=== PATIENT | female | born 1960 | race Two or more races ===

== ENCOUNTER 2020-11-17 17:51 | Inpatient (IN) | payer MEDICAID ==
[~2020-11-17] VITALS: Ht 157.5 cm; Wt 60.3 kg
--- NOTE | 2020-11-17 18:15 | NUR ---
RN NOTES PATIENT ARRIVED AT UNIT TO ROOM 315-1 VIA GURNEY ACCOMPANIED BY 2 API DEVELOPER; BEDSIDE ENDORSEMENT DONE.
[2020-11-17 18:30] VITALS: BP 136/88
[2020-11-17 19:30] VITALS: BP 149/59
--- NOTE | 2020-11-17 19:30 | NUR ---
MATERIALS ASSOCIATECIVIL DRAFTSMAN NOTE RECEIVED PATIENT IN BED/ A/OX4. [place] SPEAKING, ABLE TO MAKE BASIC NEEDS KNOWN. TOLERATING ROOM AIR. RESPIRATIONS ARE EVEN AND UNLABORED. NO S/S SOB NOTED. NO C/O PAIN AT THIS TIME. EXTERNAL TELE MONITOR READS SINUS RHYTHM HR 76 WITH OCCASIONAL PVC. IN NO APPARENT DISTRESS. IV ACCESS IN RFA#22 PATENT AND SALINE LOCKED. INITIAL PHYSICAL ASSESSMENT COMPLETE. SKIN ASSESSMENT COMPLETED, RLE WRAPPED WITH A SPLINT AND ANAY BANDAGE, PHOTO PLACED IN CHART. TUBE SORTER OBTAINED BELONGING LIST AND OBTAINED VITAL SIGNS. INPUT THE Walk-in Appointment Scheduler AND GAVE MEDICATION TO PHARMACY, CALLED SYSTEMS ADMINISTRATION ANALYST MD DR. BAEZ TO PLACE ADMITTING ORDERS. BED IS LOW AND LOCKED, HOB ELEVATED IN SEMI FOWLERS, SIDE RAILS UP X3, CALL LIGHT WITHIN REACH. INFORMED ON USE.WILL CONTINUE TO MONITOR THROUGHOUT SHIFT. Addendum: 11/18/20 at 0653 by ALTHEA CAST RN PATIENT A DIRECT ADMIT FROM [facility].
[2020-11-17 20:00] VITALS: BP 149/59
[2020-11-17] MEDS ORDERED: LEVO88TA5 PO (20:56)
[2020-11-17] MEDS ORDERED: GABA-532 PO (20:56)
[2020-11-17] MEDS ORDERED: ASPI-1420 PO (20:56)
[2020-11-17] MEDS ORDERED: ATOR80TA PO (20:56)
[2020-11-17] MEDS ORDERED: PYRI50TA15 PO (20:56)
[2020-11-17] MEDS ORDERED: AMLO-213 PO (20:56)
[2020-11-17] MEDS ORDERED: FOLI0.8T2 PO (20:56)
[2020-11-17] MEDS ORDERED: PRED5DRO16 EACHEYE (20:56)
[2020-11-17] MEDS ORDERED: BENA20TA9 PO (20:56)
[2020-11-17] MEDS ORDERED: OMEP20TA5 PO (20:56)
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
[2020-11-17] MEDS ORDERED: MAGNESIUM HYDROXIDE 30 ML UDC PO PRN (21:30)
[2020-11-17] MEDS ORDERED: ZOLPIDEM TARTRATE 5 MG TABLET PO PRN (21:30)
[2020-11-17] MEDS ORDERED: MAG HYDROX/AL HYDROX/SIMETH 30 ML UDC PO PRN (21:30)
[2020-11-17] MEDS ORDERED: VANCOMYCIN 1 GM in IV D5W 250ml IV ONE (23:45)
[2020-11-17] MEDS ORDERED: VANCOMYCIN 1 GM VIAL ONE (23:49)
[2020-11-18] VITALS: BP 130/58
[2020-11-18 04:00] VITALS: BP 129/69
[2020-11-18] MEDS: ONDANSETRON HCL/PF 4 MG/2 ML VIAL IVP PRN (05:34)
[2020-11-18 06:16] LABS: BASOPHILS # (AUTO) 0.2 /CMM (0.0-0.2); BASOPHILS % (AUTO) 3.3 % (0.0-2.0); EOSINOPHILS % (AUTO) 2.3 % (0.0-6.0); HEMATOCRIT 28 % (33-45); HEMOGLOBIN 9.2 g/dL (11.5-14.8); LYMPHOCYTES # (AUTO) 1.2 /CMM (0.8-4.8); LYMPHOCYTES % (AUTO) 18.4 % (20.0-44.0); MEAN CORPUSCULAR HGB CONC 33 g/dl (31.0-36.0); MEAN CORPUSCULAR VOLUME 93 fL (82-100); MONOCYTES # (AUTO) 0.8 /CMM (0.1-1.30); MONOCYTES % (AUTO) 12.2 % (2.0-12.0); NEUTROPHILS # (AUTO) 4.1 /CMM (1.8-8.9); NEUTROPHILS % (AUTO) 63.8 % (43.0-81.0); PLATELET COUNT (AUTO) 391 /CMM (150-450); RED BLOOD CELL COUNT(AUTO) 2.99 MIL/uL (4.0-5.2); WHITE BLOOD COUNT (AUTO) 6.4 K/uL (4.3-11.0)
[2020-11-18 06:38] LABS: CALCIUM, SERUM 8.6 mg/dL (8.5-10.1); CREATININE 5.3 mg/dL (0.6-1.3); MAGNESIUM 1.7 mg/dL (1.8-2.4); PHOSPHORUS 3.9 mg/dL (2.5-4.9); POTASSIUM 5.1 mmol/L (3.5-5.1)
--- NOTE | 2020-11-18 06:53 | NUR ---
SOUND RANGING CREWMEMBER CLOSING NOTE PATIENT IN BED A/OX4. TOLERATING ROOM AIR. NO RESP DISTRESS. NO C/O PAIN THROUGHOUT SHIFT. TELE MONITOR READS SINUS RHYTHM. NO DISTRESS. IV ACCESS MAINTAINED, LEFT ARM AV SHUNT. BED IS LOW AND LOCKED, HOB ELEVATED IN SEMI FOWLERS, SIDE RAILS UP X3, CALL LIGHT WITHIN REACH. WILL ENDORSE TO ONCOMING SHIFT.
--- NOTE | 2020-11-18 07:03 | NUR ---
PERSONAL LINES SALES REP OPENING NOTE RECEIVED PATIENT AWAKE IN BED. A/OX4. PT STABLE ON ROOM AIR. NO S/S SOB NOTED. NO S/S OF RESPIRATORY DISTRESS. PT ON EXTERNAL TELE EVENT PLANNING MANAGER READING SR 78. PT HAS NO C/O PAIN AT THIS TIME. IV ACCESS IN RFA #22G SALINE LOCKED. IV IS INTACT AND PATENT. LEFT AV SHUNT NOTED. SAFETY MEASURES MAINTAINED. BED IN LOWEST LOCKED POSITION. HOB ELEVATED, SIDE RAILS UP X2, CALL LIGHT AND TABLE WITHIN REACH. WILL CONTINUE WITH PLAN OF CARE.
[2020-11-18 08:00] VITALS: BP 135/61
[2020-11-18] MEDS ORDERED: DEXTROSE 50%-WATER 50 ML DISP.SYRIN IV PRN (08:00)
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
[2020-11-18] MEDS: BENAZEPRIL HCL 5 MG TABLET PO SCH (08:22)
[2020-11-18] MEDS: GABAPENTIN 100 MG CAPSULE PO SCH (08:23)
[2020-11-18] MEDS: ASPIRIN EC 81 MG TABLET.DR PO SCH (08:23)
[2020-11-18] MEDS: LEVOTHYROXINE SODIUM 88 MCG TABLET PO SCH (08:23)
[2020-11-18] MEDS: AMLODIPINE BESYLATE 10 MG TABLET PO SCH (08:23)
[2020-11-18] MEDS: VIT B CMPLX 3/FA/VIT C/BIOTIN 1 TAB TABLET PO SCH (08:23)
[2020-11-18] MEDS: PANTOPRAZOLE 40 MG TABLET.DR PO SCH (08:23)
[2020-11-18] MEDS: ATORVASTATIN 40 MG TABLET PO SCH (08:24)
[2020-11-18] MEDS: prednisoLONE ACET 1% OPHT DROP 5 ML BOTTLE EACHEYE SCH ×4 (08:26→21:36)
[2020-11-18] MEDS ORDERED: BENAZEPRIL HCL 5 MG TABLET PO SCH (09:00)
[2020-11-18] MEDS ORDERED: BENAZEPRIL HCL 20 MG TABLET PO SCH (09:00)
[2020-11-18] MEDS: PYRIDOXINE HCL 50 MG TABLET PO SCH (09:01)
--- NOTE | 2020-11-18 10:49 | NUR ---
PT'S MAGNESIUM 1.7. RECEIVED ORDERS FROM DR. MEDRANO TO ADMINISTER MAGNESIUM 1 G IVPB ONCE. ORDERS READ BACK AND CARRIED OUT. WILL CONTINUE TO MONITOR.
[2020-11-18] MEDS ORDERED: Magnesium 1GM/D5W 100ML PREMIX 100 ML IV SCH (11:00)
[2020-11-18] MEDS ORDERED: Magnesium 1GM/D5W 100ML PREMIX PIGGYBACK IV SCH (11:00)
[2020-11-18] MEDS: BLOOD SUGAR DIAGNOSTIC 1 EACH STRIP IN SCH ×3 (12:11→21:36)
[2020-11-18] MEDS: INSULIN REGULAR, HUMAN 100 UNIT/ML 3 ML VIAL SQ PRN ×3 (12:16→21:43)
[2020-11-18 16:00] VITALS: BP 121/54
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
[2020-11-18] MEDS: CEFEPIME 1 GM in IV D5W 50 ML IV SCH (16:55)
[2020-11-18] MEDS: METRONIDAZOLE 500MG/ NS 100ML 500 MG in PREMIX 1 EA IV SCH ×2 (17:57→23:57)
--- NOTE | 2020-11-18 18:44 | NUR ---
GROUP WORK PROGRAM AIDE CLOSING NOTE PT IS AWAKE IN BED AT THIS TIME. A/O X4. PT STABLE ON ROOM AIR. NO SOB NOTED. NO S/O OF RESPIRATORY DISTRESS. IV ACCESS IS INTACT, PATENT, AND FLUSHING WELL. WOUND CARE ADMINISTERED. PT REPOSITIONED Q2H AND PRN. ALL NEEDS HAVE BEEN MET. SAFETY PRECAUTIONS MAINTAINED AT ALL TIMES, BED IN LOWEST LOCKED POSITION, SIDE RAILS UP X2. CALL LIGHT AND TABLE WITHIN REACH. WILL ENDORSE TO ONCOMING NIGHT NURSE FOR CONTINUITY OF CARE.
--- NOTE | 2020-11-18 19:30 | NUR ---
COUNTY OR CITY AUDITOR OPENING NOTE PATIENT IN BED. A/OX4. TOLERATING ROOM AIR. RESPIRATIONS ARE EVEN AND UNLABORED. NO S/S SOB. NO C/O PAIN. EXTERNAL TELE MONITOR READS SINUS RHYTHM. IN NO APPARENT DISTRESS. IV ACCESS IN RFA INFILTRATED, INFORMED WILL PLACE ANOTHER. LEFT ARM AV SHUNT. BED IS LOW AND LOCKED, HOB ELEVATED IN SEMI FOWLERS, SIDE RAILS UP X3, CALL LIGHT WITHIN REACH. WILL CONTINUE TO MONITOR THROUGHOUT SHIFT. .
[2020-11-18 20:00] VITALS: BP 117/58
[2020-11-19] VITALS: BP 121/58
[2020-11-19 04:00] VITALS: BP 120/56
[2020-11-19] MEDS: METRONIDAZOLE 500MG/ NS 100ML 500 MG in PREMIX 1 EA IV SCH ×4 (05:38→23:11)
[2020-11-19 06:30] LABS: BASOPHILS # (AUTO) 0.2 /CMM (0.0-0.2); BASOPHILS % (AUTO) 2.6 % (0.0-2.0); EOSINOPHILS % (AUTO) 1.8 % (0.0-6.0); HEMATOCRIT 24 % (33-45); HEMOGLOBIN 7.7 g/dL (11.5-14.8); LYMPHOCYTES # (AUTO) 1.2 /CMM (0.8-4.8); LYMPHOCYTES % (AUTO) 15.8 % (20.0-44.0); MEAN CORPUSCULAR HGB CONC 33 g/dl (31.0-36.0); MEAN CORPUSCULAR VOLUME 94 fL (82-100); MONOCYTES # (AUTO) 0.8 /CMM (0.1-1.30); MONOCYTES % (AUTO) 10.7 % (2.0-12.0); NEUTROPHILS % (AUTO) 69.1 % (43.0-81.0); PLATELET COUNT (AUTO) 329 /CMM (150-450); RED BLOOD CELL COUNT(AUTO) 2.51 MIL/uL (4.0-5.2); WHITE BLOOD COUNT (AUTO) 7.3 K/uL (4.3-11.0)
[2020-11-19] MEDS: BLOOD SUGAR DIAGNOSTIC 1 EACH STRIP IN SCH ×4 (06:30→22:22)
[2020-11-19] MEDS: INSULIN REGULAR, HUMAN 100 UNIT/ML 3 ML VIAL SQ PRN ×4 (06:32→22:30)
--- NOTE | 2020-11-19 06:51 | NUR ---
CHEMIST STEROIDS CLOSING NOTE PATIENT IN BED A/OX4. TOLERATING ROOM AIR. NO RESP DISTRESS. NO C/O PAIN THROUGHOUT SHIFT. TELE MONITOR READS SINUS RHYTHM. NO DISTRESS. IV ACCESS MAINTAINED RIGHT WRIST #22. BED REMAINS LOW AND LOCKED, HOB ELEVATED IN SEMI FOWLERS, SIDE RAILS UP X3, CALL LIGHT WITHIN REACH. WILL ENDORSE TO ONCOMING SHIFT.
[2020-11-19 07:08] LABS: MAGNESIUM 1.9 mg/dL (1.8-2.4); PHOSPHORUS 3.6 mg/dL (2.5-4.9); POTASSIUM 4.2 mmol/L (3.5-5.1)
[2020-11-19] MEDS: PANTOPRAZOLE 40 MG TABLET.DR PO SCH (07:52)
[2020-11-19] MEDS: LEVOTHYROXINE SODIUM 88 MCG TABLET PO SCH (07:52)
[2020-11-19 08:00] VITALS: BP 119/49
--- NOTE | 2020-11-19 08:00 | NUR ---
RN OPENING NOTE RECEIVED PATIENT IN BED, AO X 4 CONGOLESE SPEAKING, ABLE TO RESPONDS ALL STIMULI. DENIES PAIN OR DISTRESS, SKIN IS WARM TO TOUCH, KEEP CLEAN/DRY INTACT IV AND AV SHUNT ON LEFT UPPER ARM. RESPIRATORY EVEN AND UNLABORED ON ROOM AIR. KEPT ELEVATED HOB FOR ENSURE AIRWAY AND ASPIRATION PRECAUTION, ALSO LOWEST BED POSITION. CALL LIGHT WITHIN REACH, WILL CONTINUE TO MONITOR.
[2020-11-19] MEDS: prednisoLONE ACET 1% OPHT DROP 5 ML BOTTLE EACHEYE SCH ×4 (08:34→22:22)
[2020-11-19] MEDS: VIT B CMPLX 3/FA/VIT C/BIOTIN 1 TAB TABLET PO SCH (08:34)
[2020-11-19] MEDS: GABAPENTIN 100 MG CAPSULE PO SCH (08:35)
[2020-11-19] MEDS: AMLODIPINE BESYLATE 10 MG TABLET PO SCH (08:35)
[2020-11-19] MEDS: ATORVASTATIN 40 MG TABLET PO SCH (08:35)
[2020-11-19] MEDS: ASPIRIN EC 81 MG TABLET.DR PO SCH (08:35)
[2020-11-19] MEDS: BENAZEPRIL HCL 5 MG TABLET PO SCH (08:35)
[2020-11-19] MEDS: PYRIDOXINE HCL 50 MG TABLET PO SCH (08:38)
--- NOTE | 2020-11-19 09:01 | NUR ---
PATIENT BP-119/49, P-75, WILL HOLD BP MEDS AT THIS TIME.
[2020-11-19] MEDS ORDERED: EPOETIN ALFA (20,000 UNIT) 20,000 UNIT/ML VIAL SQ ONE (13:00)
[2020-11-19 16:06] VITALS: BP 117/51
[2020-11-19] MEDS: CEFEPIME 1 GM in IV D5W 50 ML IV SCH (17:16)
--- NOTE | 2020-11-19 18:00 | NUR ---
RN CLOSING NOTE PATIENT IN ROOM, REMAINS AO X 4, DENIES PAIN OR DISTRESS. SKIN IS WARM TO TOUCH, WOUND DRESSING CHANGED AND KEEP CLEAN/DRY. RESPIRATORY EVEN AND UNLABORED ON ROOM AIR. KEPT ELEVATED HOB FOR ENSURE AIRWAY AND ASPIRATION PRECAUTION ALSO LOWEST BED POSITION FOR SAFETY. RECEIVED MEDICATION FOR TONIGHT DOSAGE X 3. WILL ENDORSE STEAM BOX OPERATOR.
--- NOTE | 2020-11-19 19:30 | NUR ---
MS RN OPENING NOTE PATIENT IN BED. A/OX4. TOLERATING ROOM AIR. RESPIRATIONS ARE EVEN AND UNLABORED. NO S/S SOB. NO C/O PAIN. IN NO APPARENT DISTRESS. IV ACCESS IN RIGHT WRIST #22 PATENT AND SALINE LOCKED. LEFT ARM AV SHUNT. BED IS LOW AND LOCKED, HOB ELEVATED IN SEMI FOWLERS, SIDE RAILS UP X3, CALL LIGHT WITHIN REACH. WILL CONTINUE TO MONITOR THROUGHOUT SHIFT.
[2020-11-19 20:00] VITALS: BP 134/58
[2020-11-19] MEDS: HYDROCODONE/APAP 5/325MG TABLET PO PRN (22:24)
[2020-11-20] MEDS: METRONIDAZOLE 500MG/ NS 100ML 500 MG in PREMIX 1 EA IV SCH (05:39)
[2020-11-20 06:02] LABS: BASOPHILS # (AUTO) 0.1 /CMM (0.0-0.2); BASOPHILS % (AUTO) 2.2 % (0.0-2.0); HEMATOCRIT 25 % (33-45); HEMOGLOBIN 8.1 g/dL (11.5-14.8); LYMPHOCYTES # (AUTO) 1.2 /CMM (0.8-4.8); LYMPHOCYTES % (AUTO) 19.5 % (20.0-44.0); MEAN CORPUSCULAR HGB CONC 33 g/dl (31.0-36.0); MEAN CORPUSCULAR VOLUME 95 fL (82-100); MONOCYTES # (AUTO) 0.7 /CMM (0.1-1.30); MONOCYTES % (AUTO) 10.7 % (2.0-12.0); NEUTROPHILS % (AUTO) 64.6 % (43.0-81.0); PLATELET COUNT (AUTO) 336 /CMM (150-450); RED BLOOD CELL COUNT(AUTO) 2.63 MIL/uL (4.0-5.2); WHITE BLOOD COUNT (AUTO) 6.2 K/uL (4.3-11.0)
[2020-11-20] MEDS: BLOOD SUGAR DIAGNOSTIC 1 EACH STRIP IN SCH ×4 (06:35→22:02)
[2020-11-20] MEDS: INSULIN REGULAR, HUMAN 100 UNIT/ML 3 ML VIAL SQ PRN ×4 (06:36→22:02)
--- NOTE | 2020-11-20 07:06 | NUR ---
MS RN OPENING NOTE RECEIVED PT AWAKE IN BED AT THIS TIME. A/OX4. PT ABLE TO VERBALIZE NEEDS IN PERSIAN. NO SOB NOTED. NO C/O PAIN AT THIS TIME, NO SIGN OF ANY APPARENT DISTRESS NOTED. PT STABLE ON RA. IV ACCESS NOTED IN RFA G#22 INTACT, PATENT AND FLUSHING WELL. PT NOTED WITH RIGHT LEG SPLINT, SKIN AROUND SPLINT INTACT. SAFETY PRECAUTIONS IN PLACE AND MAINTAINED AT ALL TIMES. BED IN LOWEST LOCKED POSITION, HOB ELEVATED, SIDE RAILS UP X2, CALL LIGHT AND TABLE WITHIN REACH. WILL CONTINUE TO MONITOR
--- NOTE | 2020-11-20 07:17 | NUR ---
MS RN CLOSING NOTE PATIENT IN BED A/OX4. TOLERATING ROOM AIR. NO RESP DISTRESS. NO C/O PAIN THROUGHOUT SHIFT. . NO DISTRESS. IV ACCESS MAINTAINED RIGHT WRIST #22. BED REMAINS LOW AND LOCKED, HOB ELEVATED IN SEMI FOWLERS, SIDE RAILS UP X3, CALL LIGHT WITHIN REACH. WILL ENDORSE TO ONCOMING SHIFT.
[2020-11-20 07:29] LABS: ALBUMIN 1.6 g/dL (3.4-5.0); BILIRUBIN,TOTAL 0.4 mg/dL (0.2-1.0); CALCIUM, SERUM 8.3 mg/dL (8.5-10.1); CREATININE 5.1 mg/dL (0.6-1.3); MAGNESIUM 2.1 mg/dL (1.8-2.4); PHOSPHORUS 4.7 mg/dL (2.5-4.9); POTASSIUM 4.5 mmol/L (3.5-5.1)
[2020-11-20 08:00] VITALS: BP 118/51
[2020-11-20] MEDS: LEVOTHYROXINE SODIUM 88 MCG TABLET PO SCH (08:24)
[2020-11-20] MEDS: PANTOPRAZOLE 40 MG TABLET.DR PO SCH (08:24)
[2020-11-20] MEDS: prednisoLONE ACET 1% OPHT DROP 5 ML BOTTLE EACHEYE SCH ×4 (08:46→20:54)
[2020-11-20] MEDS: VIT B CMPLX 3/FA/VIT C/BIOTIN 1 TAB TABLET PO SCH (08:47)
[2020-11-20] MEDS: ATORVASTATIN 40 MG TABLET PO SCH (08:47)
[2020-11-20] MEDS: ASPIRIN EC 81 MG TABLET.DR PO SCH (08:47)
[2020-11-20] MEDS: GABAPENTIN 100 MG CAPSULE PO SCH (08:47)
[2020-11-20] MEDS: PYRIDOXINE HCL 50 MG TABLET PO SCH (08:48)
[2020-11-20] MEDS: BENAZEPRIL HCL 5 MG TABLET PO SCH (08:49)
[2020-11-20] MEDS: AMLODIPINE BESYLATE 10 MG TABLET PO SCH (08:49)
[2020-11-20] MEDS: Z GUARD REMEDY 2 OZ OINT TP PRN ×2 (08:51→17:01)
[2020-11-20] MEDS: METRONIDAZOLE 500 MG TABLET PO SCH ×3 (11:50→23:15)
[2020-11-20] MEDS: PROSOURCE / PROSTAT (PYXIS) 30 ML UDC PO SCH (13:35)
[2020-11-20 15:48] VITALS: BP 129/53
[2020-11-20] MEDS: CEFEPIME 1 GM in IV D5W 50 ML IV SCH (17:30)
--- NOTE | 2020-11-20 18:56 | NUR ---
MS RN CLOSING NOTES PT AWAKE IN BED AT THIS TIME. PT REMAINED STABLE THROUGHOUT SHIFT.ALL CARE, NEEDS, MEDICATIONS AND TREATMENT ADMINISTERED ANTICIPATED PER ORDER.PT KEPT CLEAN AND DRY. WOUND CARE PROVIDED. PT REPOSITIONED Q2H AND PRN. SAFETY PRECAUTIONS IN PLACE AND MAINTAINED AT ALL TIMES. BED IN LOWEST LOCKED POSITION, HOB ELEVATED, SIDE RAILS UPX2, CALL LIGHT AND TABLE WITHIN REACH. WILL ENDORSE TO METAL FABRICATOR WELDER NURSE FOR ENEDINA
--- NOTE | 2020-11-20 19:20 | NUR ---
RN opening notes Pt is resting in bed comfortably. Pt is alert and orientedX4. Pt speaks Uruguayan and able to make needs known. Respiration is normal in room air. No SOB, No S/S of distress noted. IV site at R wrist# 22 is clean, intact and flushes well. LAV shunt is thrill and bruit. Safety precautions is maintained. Bed at low position, brakes locked, side rails upX2, hob elevated and call light is within reach. Will continue to monitor.
[2020-11-20 20:00] VITALS: BP 126/51
--- NOTE | 2020-11-20 20:00 | NUR ---
RN notes Obtained consent for Hemodialysis. Pt signed the consent and verbalize understanding. Will continue to monitor.
--- NOTE | 2020-11-20 20:00 | NUR ---
RN notes Received order from Dr. Alvarez to obtain consent for peripheral angiogram and possible intervention (with moderate sedation). Order carried out.
[2020-11-20 20:02] VITALS: BP 126/51
--- NOTE | 2020-11-20 20:30 | NUR ---
RN notes Pt's having dialysis at the bedside with LORETTA Padron. Will continue to monitor.
--- NOTE | 2020-11-20 21:15 | NUR ---
RN notes Obtained consent from Pt for peripheral angiogram and possible intervention. Explained risks and benefits. Pt verbalize understanding.
--- NOTE | 2020-11-20 22:30 | NUR ---
RN notes Pt is finished with HD with 1 L ouput. BP 136/62. pulse 72. Pt tolerated activity well. Will continue to monitor.
[2020-11-20] MEDS: VANCOMYCIN 500 MG in IV D5W 100 ML IV PRN (23:20)
--- NOTE | 2020-11-20 23:21 | NUR ---
RN notes Called and spoke with oncall pharmacy Amira regarding Held vanco abx after HD. Informed and notified Amira that Pt just finished HD with 1 L output and vanco trough today was 21 and not administered vanco abx. Will continue to monitor.
[2020-11-20] MEDS: HYDROCODONE/APAP 5/325MG TABLET PO PRN (23:35)
--- NOTE | 2020-11-20 23:35 | NUR ---
RN notes Pt's complaining of pain on R leg and requesting meds. Administered norco 5/po/prn as ordered for pain. Safety precautions is maintained. Will continue to monitor.
[2020-11-21] MEDS: ONDANSETRON HCL/PF 4 MG/2 ML VIAL IVP PRN (03:59)
[2020-11-21] MEDS: METRONIDAZOLE 500 MG TABLET PO SCH ×4 (05:18→23:52)
[2020-11-21] MEDS: BLOOD SUGAR DIAGNOSTIC 1 EACH STRIP IN SCH ×4 (06:39→21:44)
--- NOTE | 2020-11-21 06:40 | NUR ---
RN closing notes Pt is resting in bed comfortably. Pt is alert and orientedX4. Pt speaks New Zealander and able to make needs known. Respiration is normal in room air. No SOB, No S/S of distress noted. VS is stable. Afebrile. Routine meds were given as ordered. IV site at R wrist# 22 is clean, intact and flushes well and SL. LAV shunt is thrill and bruit. Pt status is NPO for procedure today. Wound care provided as ordered. Kept Pt clean, dry and comfortable. All needs met and attended. Safety precautions is maintained. Bed at low position, brakes locked, side rails upX2, hob elevated and call light is within reach. Will endorse to morning nurse for ENEDINA.
[2020-11-21] MEDS: INSULIN REGULAR, HUMAN 100 UNIT/ML 3 ML VIAL SQ PRN ×4 (06:41→21:56)
--- NOTE | 2020-11-21 06:41 | NUR ---
RN notes Pt's blood sugar in am 157. Held insulin because NPO diagnose and Pt is going for procedure today peripheral angiogram and possible intervention with moderate sedation. no S/S of distress noted. Will continue to monitor.
--- NOTE | 2020-11-21 07:54 | NUR ---
MS RN OPENING NOTE RECEIVED PT AWAKE IN BED AT THIS TIME. A/OX4. AFGHAN SPEAKING. NO SOB NOTED. NO C/O PAIN AT THIS TIME, NO S/O ANY ACUTE DISTRESS NOTED. PT STABLE ON RA. IV ACCESS NOTED IN RFA G#22 INTACT, PATENT AND FLUSHING WELL. LEFT AV SHUNT NOTED, AUSCULTATED A BRUIT AND FELT A THRILL. PT NOTED WITH RIGHT LEG SPLINT, SKIN AROUND PROTECTED AND SPLINT INTACT. SAFETY PRECAUTIONS IN PLACE AND MAINTAINED AT ALL TIMES. BED IN LOWEST LOCKED POSITION, HOB ELEVATED, SIDE RAILS UP X2, CALL LIGHT AND TABLE WITHIN REACH. WILL CONTINUE TO MONITOR
[2020-11-21 08:00] VITALS: BP 145/60
[2020-11-21] MEDS ORDERED: IV NS 0.9% 1,000 ML ONE (08:34)
[2020-11-21] MEDS ORDERED: IODIXANOL 0 ML IV ONE (08:35)
[2020-11-21 08:46] LABS: CALCIUM, SERUM 8.3 mg/dL (8.5-10.1); CREATININE 3.7 mg/dL (0.6-1.3)
[2020-11-21] MEDS: ASPIRIN EC 81 MG TABLET.DR PO SCH (08:53)
[2020-11-21] MEDS: ATORVASTATIN 40 MG TABLET PO SCH (08:53)
[2020-11-21] MEDS: prednisoLONE ACET 1% OPHT DROP 5 ML BOTTLE EACHEYE SCH ×4 (08:53→21:16)
[2020-11-21] MEDS: PYRIDOXINE HCL 50 MG TABLET PO SCH (08:53)
[2020-11-21] MEDS: VIT B CMPLX 3/FA/VIT C/BIOTIN 1 TAB TABLET PO SCH (08:53)
[2020-11-21] MEDS: LEVOTHYROXINE SODIUM 88 MCG TABLET PO SCH (08:53)
[2020-11-21] MEDS: PANTOPRAZOLE 40 MG TABLET.DR PO SCH (08:53)
[2020-11-21] MEDS: GABAPENTIN 100 MG CAPSULE PO SCH (08:53)
[2020-11-21] MEDS: AMLODIPINE BESYLATE 10 MG TABLET PO SCH (08:54)
[2020-11-21] MEDS: BENAZEPRIL HCL 5 MG TABLET PO SCH (08:55)
[2020-11-21] MEDS: Z GUARD REMEDY 2 OZ OINT TP PRN (08:56)
[2020-11-21] MEDS: PROSOURCE / PROSTAT (PYXIS) 30 ML UDC PO SCH (09:38)
[2020-11-21] MEDS: HYDROCODONE/APAP 5/325MG TABLET PO PRN (10:36)
[2020-11-21] MEDS ORDERED: LIDOCAINE HCL/MPF 1% 30 ML VIAL IJ ONE (11:55)
[2020-11-21] MEDS ORDERED: MIDAZOLAM HCL 2 MG/2ML VIAL ONE (12:13)
[2020-11-21] MEDS ORDERED: FENTANYL PF 100MCG/2ML AMPUL ONE (12:13)
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
--- NOTE | 2020-11-21 13:07 | NUR ---
PT TRANSPORTED TO UNIT BY BED FROM [facility] AT THIS TIME POST ABD ANGIO WITH RUN-OFF. PT NOTED WITH LEFT GROIN DRY DRESSING. NO BLEEDING NOTED, VS BP 128/62, HR 78, RR 18, T 98.0, SPO2 96% ON RA. PREVIOUS DIET ORDER RESUMED TO RENAL HIGH(80GM) PER ORDER. WILL CONTINUE TO MONITOR
[2020-11-21 16:00] VITALS: BP 100/50
[2020-11-21] MEDS: CEFEPIME 1 GM in IV D5W 50 ML IV SCH (17:44)
--- NOTE | 2020-11-21 18:24 | NUR ---
MS RN CLOSING NOTES PT AWAKE IN BED AT THIS TIME. PT REMAINED STABLE THROUGHOUT SHIFT. ALL PT CARE, NEEDS, MEDICATIONS AND TREATMENT ADMINISTERED ANTICIPATED PER ORDER.PT KEPT CLEAN AND DRY. WOUND CARE PROVIDED. PT REPOSITIONED Q2H AND PRN. SAFETY PRECAUTIONS IN PLACE AND MAINTAINED AT ALL TIMES. BED IN LOWEST LOCKED POSITION, HOB ELEVATED, SIDE RAILS UPX2, CALL LIGHT AND TABLE WITHIN REACH. WILL ENDORSE TO BANK COURIER NURSE FOR ENEDIAN
--- NOTE | 2020-11-21 19:30 | NUR ---
MS RN OPENING NOTE RECEIVED PT RESTING IN BED, A/OX4. MICRONESIAN SPEAKING. NO S/S OF RESPIRATORY DISTRESS, BREATHING EVEN AND UNLABORED. NO C/O PAIN AT THIS TIME, NO S/O ANY ACUTE DISTRESS NOTED. PT STABLE ON RA. IV ACCESS NOTED IN RFA G#22 INTACT, PATENT AND FLUSHING WELL. LEFT AV SHUNT NOTED, AUSCULTATED A BRUIT AND FELT A THRILL. PT NOTED WITH RIGHT LEG SPLINT, SKIN AROUND PROTECTED AND SPLINT INTACT. SAFETY PRECAUTIONS IN PLACE : BED IN LOWEST LOCKED POSITION, HOB ELEVATED, SIDE RAILS UP X2, CALL LIGHT AND TABLE WITHIN REACH. ENCOURAGED PATIENT TO CALL IF IN NEED. WILL CONTINUE TO MONITOR.
[2020-11-21 20:00] VITALS: BP 134/58
[2020-11-22] MEDS: METRONIDAZOLE 500 MG TABLET PO SCH ×4 (05:13→23:01)
[2020-11-22 07:09] LABS: BASOPHILS # (AUTO) 0.2 /CMM (0.0-0.2); BASOPHILS % (AUTO) 2.3 % (0.0-2.0); EOSINOPHILS % (AUTO) 5.7 % (0.0-6.0); HEMATOCRIT 24 % (33-45); HEMOGLOBIN 7.8 g/dL (11.5-14.8); LYMPHOCYTES # (AUTO) 1.4 /CMM (0.8-4.8); LYMPHOCYTES % (AUTO) 19.1 % (20.0-44.0); MEAN CORPUSCULAR HGB CONC 33 g/dl (31.0-36.0); MEAN CORPUSCULAR VOLUME 95 fL (82-100); MONOCYTES # (AUTO) 0.9 /CMM (0.1-1.30); NEUTROPHILS # (AUTO) 4.4 /CMM (1.8-8.9); NEUTROPHILS % (AUTO) 60.9 % (43.0-81.0); PLATELET COUNT (AUTO) 398 /CMM (150-450); RED BLOOD CELL COUNT(AUTO) 2.52 MIL/uL (4.0-5.2); WHITE BLOOD COUNT (AUTO) 7.1 K/uL (4.3-11.0)
--- NOTE | 2020-11-22 07:15 | NUR ---
MS RN CLOSING NOTE PT RESTING IN BED, A/OX4. ROMANIAN SPEAKING. NO S/S OF RESPIRATORY DISTRESS, BREATHING EVEN AND UNLABORED. NO C/O PAIN AT THIS TIME, NO S/O ANY ACUTE DISTRESS NOTED. PT STABLE ON RA. IV ACCESS NOTED IN RFA G#22 INTACT, PATENT AND FLUSHING WELL. LEFT AV SHUNT NOTED, AUSCULTATED A BRUIT AND FELT A THRILL. PT NOTED WITH RIGHT LEG SPLINT, SKIN AROUND PROTECTED AND SPLINT INTACT. SAFETY PRECAUTIONS MAINTAINED : BED IN LOWEST LOCKED POSITION, HOB ELEVATED, SIDE RAILS UP X2, CALL LIGHT AND TABLE WITHIN REACH. ALL NEEDS MET AND ATTENDED. ENDORSED TO DAY SHIFT NURSE FOR ENEDINA.
--- NOTE | 2020-11-22 07:44 | NUR ---
MS RN OPENING NOTES RECEIVED PT RESTING IN BED, A/OX4. LUXEMBOURGISH SPEAKING. NO S/S OF RESPIRATORY DISTRESS, BREATHING EVEN AND UNLABORED. NO C/O PAIN AT THIS TIME, NO S/O ANY ACUTE DISTRESS NOTED. PT STABLE ON RA. IV ACCESS NOTED IN RFA G#22 INTACT, PATENT AND FLUSHING WELL. LEFT AV SHUNT NOTED, A PT NOTED WITH RIGHT LEG SPLINT, SKIN AROUND PROTECTED AND SPLINT INTACT. SAFETY PRECAUTIONS IN PLACE : BED IN LOWEST LOCKED POSITION, HOB ELEVATED, SIDE RAILS UP X2, CALL LIGHT AND TABLE WITHIN REACH.
[2020-11-22 07:47] LABS: CALCIUM, SERUM 7.9 mg/dL (8.5-10.1); CREATININE 4.9 mg/dL (0.6-1.3); POTASSIUM 4.3 mmol/L (3.5-5.1)
[2020-11-22 08:00] VITALS: BP 146/66
[2020-11-22] MEDS: BLOOD SUGAR DIAGNOSTIC 1 EACH STRIP IN SCH ×4 (09:25→23:52)
[2020-11-22] MEDS: VANCOMYCIN 500 MG in IV D5W 100 ML IV PRN (09:26)
[2020-11-22] MEDS: VIT B CMPLX 3/FA/VIT C/BIOTIN 1 TAB TABLET PO SCH (09:48)
[2020-11-22] MEDS: BENAZEPRIL HCL 5 MG TABLET PO SCH (09:48)
[2020-11-22] MEDS: ASPIRIN EC 81 MG TABLET.DR PO SCH (09:48)
[2020-11-22] MEDS: prednisoLONE ACET 1% OPHT DROP 5 ML BOTTLE EACHEYE SCH ×4 (09:49→21:19)
[2020-11-22] MEDS: ATORVASTATIN 40 MG TABLET PO SCH (09:49)
[2020-11-22] MEDS: AMLODIPINE BESYLATE 10 MG TABLET PO SCH (09:49)
[2020-11-22] MEDS: PYRIDOXINE HCL 50 MG TABLET PO SCH (09:50)
[2020-11-22] MEDS: PROSOURCE / PROSTAT (PYXIS) 30 ML UDC PO SCH (09:51)
[2020-11-22] MEDS: PANTOPRAZOLE 40 MG TABLET.DR PO SCH (09:51)
[2020-11-22] MEDS: LEVOTHYROXINE SODIUM 88 MCG TABLET PO SCH (09:51)
[2020-11-22] MEDS: GABAPENTIN 100 MG CAPSULE PO SCH (09:51)
[2020-11-22] MEDS: INSULIN REGULAR, HUMAN 100 UNIT/ML 3 ML VIAL SQ PRN (11:57)
[2020-11-22] MEDS ORDERED: CEFTRIAXONE 1 G in IV D5W 50 ML IV SCH (14:00)
[2020-11-22 16:00] VITALS: BP 114/58
[2020-11-22] MEDS ORDERED: CEFEPIME 1 GM in IV D5W 50 ML IV SCH (16:00)
--- NOTE | 2020-11-22 17:55 | NUR ---
MS RN cLOSING NOTES RECEIVED PT RESTING IN BED, A/OX4. WOLOF SPEAKING. NO S/S OF RESPIRATORY DISTRESS, BREATHING EVEN AND UNLABORED. NO C/O PAIN AT THIS TIME, NO S/O ANY ACUTE DISTRESS NOTED. PT STABLE ON RA. IV ACCESS NOTED IN RFA G#22 INTACT, PATENT AND FLUSHING WELL. LEFT AV SHUNT NOTED, A PT NOTED WITH RIGHT LEG SPLINT, SKIN AROUND PROTECTED AND SPLINT INTACT. SAFETY PRECAUTIONS IN PLACE : BED IN LOWEST LOCKED POSITION, HOB ELEVATED, SIDE RAILS UP X2, CALL LIGHT AND TABLE WITHIN REACH.
--- NOTE | 2020-11-22 19:30 | NUR ---
MS/RN NOTES RECEIVED PATIENT IN BED RESTING. PATIENT IS ALERT AND ORIENTED X 3-4. PATIENT BREATHING IS EVEN AND UNLABORED. NO SIGNS OF SOB OR RESPIRATORY DISTRESS NOTED. PATIENT STATES NO PAIN AT THIS TIME. IV ACCESS IN PLACE. SAFETY MEASURES ARE IN PLACE, BED LOCKED AND PLACED IN THE LOWEST POSITION, SIDE RAILS UP X 2, CALL LIGHT IS WITHIN REACH. WILL CONTINUE WITH PATIENT PLAN OF CARE.
[2020-11-22 20:00] VITALS: BP 119/53
[2020-11-23] MEDS: METRONIDAZOLE 500 MG TABLET PO SCH (05:58)
[2020-11-23 06:36] LABS: BASOPHILS # (AUTO) 0.2 /CMM (0.0-0.2); BASOPHILS % (AUTO) 2.5 % (0.0-2.0); EOSINOPHILS % (AUTO) 6.3 % (0.0-6.0); HEMATOCRIT 23 % (33-45); HEMOGLOBIN 7.5 g/dL (11.5-14.8); LYMPHOCYTES # (AUTO) 1.3 /CMM (0.8-4.8); LYMPHOCYTES % (AUTO) 18.8 % (20.0-44.0); MEAN CORPUSCULAR HGB CONC 33 g/dl (31.0-36.0); MEAN CORPUSCULAR VOLUME 94 fL (82-100); MONOCYTES # (AUTO) 0.8 /CMM (0.1-1.30); MONOCYTES % (AUTO) 11.5 % (2.0-12.0); NEUTROPHILS # (AUTO) 4.1 /CMM (1.8-8.9); NEUTROPHILS % (AUTO) 60.9 % (43.0-81.0); PLATELET COUNT (AUTO) 371 /CMM (150-450); WHITE BLOOD COUNT (AUTO) 6.8 K/uL (4.3-11.0)
[2020-11-23] MEDS: BLOOD SUGAR DIAGNOSTIC 1 EACH STRIP IN SCH ×4 (06:50→22:12)
--- NOTE | 2020-11-23 06:55 | NUR ---
MS/RN CLOSING NOTES PATIENT IN BED SLEEPING EASY TO AROUSE. PATIENT IS ALERT AND ORIENTED X 4. PATIENT BREATHING IS EVEN AND UNLABORED. PATIENT SHOWS NO SIGNS OF SOB OR RESPIRATORY DISTRESS. PATIENT STATES NO PAIN AT THIS TIME. ALL NEEDS HAVE BEEN MET DURING SHIFT. PATIENT WOUND TREATMENT DONE DURING SHIFT, DSG CLEANED AND INTACT. PATIENT HAS IV ACCESS ON RIGHT WIRST INTACT FLUSHING WELL AND LEFT AV SHUNT INTACT. SAFETY MEASURES ARE IN PLACE, BED IS LOCKED AND PLACED IN THE LOWEST POSITION, SIDE RAILS UP X 3, CALL LIGHT IS WITHIN REACH. WILL ENDORSE CARE TO DAY SHIFT NURSE.
[2020-11-23 07:25] LABS: CALCIUM, SERUM 7.5 mg/dL (8.5-10.1); MAGNESIUM 1.9 mg/dL (1.8-2.4); POTASSIUM 3.7 mmol/L (3.5-5.1)
--- NOTE | 2020-11-23 07:42 | NUR ---
MS/RN OPENING NOTE RECEIVED PATIENT FROM TRAINING AND DEVELOPMENT MANAGER NURSE. PATIENT SEEN LAYING DOWN IN HOSPITAL BED, A/O X4, WOLOF SPEAKING. NO ACUTE DISTRESS NOTED, PATIENT DENIES ANY PAIN AT THE MOMENT. PATIENT ON ROOM AIR TOLERATING WELL, NO SOB NOTED, BREATHING EVEN, NON LABORED. SAFETY MEASURES IN PLACE, BED LOCKED AND IN LOWEST POSITION, CALL LIGHT WITHIN REACH. WILL CONTINUE TO MONITOR AND ENSURE SAFETY.
[2020-11-23] MEDS: LEVOTHYROXINE SODIUM 88 MCG TABLET PO SCH (07:58)
[2020-11-23] MEDS: PANTOPRAZOLE 40 MG TABLET.DR PO SCH (07:58)
[2020-11-23] MEDS: PYRIDOXINE HCL 50 MG TABLET PO SCH (08:40)
[2020-11-23] MEDS: AMLODIPINE BESYLATE 10 MG TABLET PO SCH (08:40)
[2020-11-23] MEDS: ATORVASTATIN 40 MG TABLET PO SCH (08:40)
[2020-11-23] MEDS: GABAPENTIN 100 MG CAPSULE PO SCH (08:40)
[2020-11-23] MEDS: VIT B CMPLX 3/FA/VIT C/BIOTIN 1 TAB TABLET PO SCH (08:40)
[2020-11-23] MEDS: ASPIRIN EC 81 MG TABLET.DR PO SCH (08:40)
[2020-11-23] MEDS: PROSOURCE / PROSTAT (PYXIS) 30 ML UDC PO SCH (08:41)
[2020-11-23] MEDS: BENAZEPRIL HCL 5 MG TABLET PO SCH (08:43)
[2020-11-23] MEDS: prednisoLONE ACET 1% OPHT DROP 5 ML BOTTLE EACHEYE SCH ×4 (08:43→22:12)
--- NOTE | 2020-11-23 11:10 | NUR ---
MS/RN NOTE MD ORDERED PICC LINE INSERTION, ORDERS CARRIED OUT, CHEST XRAY WAS COMPLETED. PATIENT TO BE DISCHARGED WITH 6 WEEK ABX PER MD.
[2020-11-23] MEDS ORDERED: MECLIZINE HCL 12.5 MG TABLET PO PRN (11:30)
[2020-11-23] MEDS: INSULIN REGULAR, HUMAN 100 UNIT/ML 3 ML VIAL SQ PRN ×3 (11:51→22:15)
--- NOTE | 2020-11-23 15:59 | NUR ---
MS/RN NOTE PATIENT HAD COVID RAPID TEST COMPLETED, AWAITING FOR RESULTS
--- NOTE | 2020-11-23 18:56 | NUR ---
MS/RN CLOSING NOTE PATIENT SEEN LAYING DOWN IN HOSPITAL BED, A/O X4, FRISIAN SPEAKING. NO ACUTE DISTRESS NOTED, PATIENT DENIES ANY PAIN AT THE MOMENT. PATIENT ON ROOM AIR TOLERATING WELL, NO SOB NOTED, BREATHING EVEN, NON LABORED. SAFETY MEASURES IN PLACE, BED LOCKED AND IN LOWEST POSITION, CALL LIGHT WITHIN REACH. ALL NEEDS MET THROUGHOUT THE SHIFT. WILL ENDORSE TO SEPTIC TANK INSTALLER NURSE.
[2020-11-23 20:00] VITALS: BP 141/60
--- NOTE | 2020-11-23 20:31 | NUR ---
MS/TELE/RN' ON INITIAL SHIFT ROUNDING, PATIENT WAS IN BED AWAKE, ALERT, TALKING TO SOMEBODY ON THE PHONE, COMFORTABLE, NO DISTRESS NOTED, CALL LIGHT IN REACH, WILL MONITOR.
[2020-11-24 06:45] LABS: BASOPHILS # (AUTO) 0.1 /CMM (0.0-0.2); BASOPHILS % (AUTO) 2.1 % (0.0-2.0); EOSINOPHILS % (AUTO) 8.7 % (0.0-6.0); HEMATOCRIT 23 % (33-45); HEMOGLOBIN 7.6 g/dL (11.5-14.8); LYMPHOCYTES # (AUTO) 1.3 /CMM (0.8-4.8); LYMPHOCYTES % (AUTO) 18.5 % (20.0-44.0); MEAN CORPUSCULAR HGB CONC 33 g/dl (31.0-36.0); MEAN CORPUSCULAR VOLUME 95 fL (82-100); MONOCYTES # (AUTO) 0.7 /CMM (0.1-1.30); MONOCYTES % (AUTO) 10.2 % (2.0-12.0); NEUTROPHILS # (AUTO) 4.4 /CMM (1.8-8.9); NEUTROPHILS % (AUTO) 60.5 % (43.0-81.0); PLATELET COUNT (AUTO) 405 /CMM (150-450); RED BLOOD CELL COUNT(AUTO) 2.39 MIL/uL (4.0-5.2); WHITE BLOOD COUNT (AUTO) 7.3 K/uL (4.3-11.0)
--- NOTE | 2020-11-24 06:51 | NUR ---
MS/TELE/RN PATIENT IS AWAKE, ALERT, ORIENTED, ACCU CHECK = 94, PATIENT SLEPT THE WHOLE SHIFT, ALL NEEDS ATTENDED AT THIS TIME, WILL CONTINUE TO MONITOR.
--- NOTE | 2020-11-24 07:34 | NUR ---
MS/RN OPENING NOTE RECEIVED PATIENT FROM SUPERVISOR SANDBLASTER NURSE. PATIENT SEEN LAYING DOWN IN HOSPITAL BED, A/O X4, CHINESE SPEAKING. NO ACUTE DISTRESS NOTED, PATIENT DENIES ANY PAIN AT THE MOMENT. PATIENT ON ROOM AIR TOLERATING WELL, NO SOB NOTED, BREATHING EVEN, NON LABORED. SAFETY MEASURES IN PLACE, BED LOCKED AND IN LOWEST POSITION, CALL LIGHT WITHIN REACH. WILL CONTINUE TO MONITOR AND ENSURE SAFETY.
[2020-11-24 07:35] LABS: CALCIUM, SERUM 7.4 mg/dL (8.5-10.1); CREATININE 5.1 mg/dL (0.6-1.3); MAGNESIUM 1.9 mg/dL (1.8-2.4); POTASSIUM 3.8 mmol/L (3.5-5.1)
[2020-11-24] MEDS: LEVOTHYROXINE SODIUM 88 MCG TABLET PO SCH (07:41)
[2020-11-24] MEDS: PANTOPRAZOLE 40 MG TABLET.DR PO SCH (07:41)
[2020-11-24] MEDS: BLOOD SUGAR DIAGNOSTIC 1 EACH STRIP IN SCH ×4 (07:55→21:55)
[2020-11-24 08:00] VITALS: BP 136/51
[2020-11-24] MEDS: prednisoLONE ACET 1% OPHT DROP 5 ML BOTTLE EACHEYE SCH ×4 (08:21→21:15)
[2020-11-24] MEDS: AMLODIPINE BESYLATE 10 MG TABLET PO SCH (08:21)
[2020-11-24] MEDS: ATORVASTATIN 40 MG TABLET PO SCH (08:21)
[2020-11-24] MEDS: VIT B CMPLX 3/FA/VIT C/BIOTIN 1 TAB TABLET PO SCH (08:22)
[2020-11-24] MEDS: PYRIDOXINE HCL 50 MG TABLET PO SCH (08:22)
[2020-11-24] MEDS: ASPIRIN EC 81 MG TABLET.DR PO SCH (08:22)
[2020-11-24] MEDS: PROSOURCE / PROSTAT (PYXIS) 30 ML UDC PO SCH (08:22)
[2020-11-24] MEDS: GABAPENTIN 100 MG CAPSULE PO SCH (08:22)
[2020-11-24] MEDS: BENAZEPRIL HCL 5 MG TABLET PO SCH (08:25)
[2020-11-24] MEDS: PIPERACILLIN /TAZOBACTAM 2.25 G in IV D5W 50 ML IV SCH ×2 (09:15→16:17)
[2020-11-24] MEDS: INSULIN REGULAR, HUMAN 100 UNIT/ML 3 ML VIAL SQ PRN ×3 (12:04→22:00)
[2020-11-24] MEDS: ACETAMINOPHEN 325 MG TABLET PO PRN (14:33)
[2020-11-24 16:00] VITALS: BP 133/68
--- NOTE | 2020-11-24 16:52 | NUR ---
MS/RN NOTE PATIENT STARTED DIALYSIS.
--- NOTE | 2020-11-24 19:24 | NUR ---
MS/RN CLOSING NOTE PATIENT SEEN LAYING DOWN IN HOSPITAL BED, A/O X4, DANISH SPEAKING. NO ACUTE DISTRESS NOTED, PATIENT DENIES ANY PAIN AT THE MOMENT. PATIENT ON ROOM AIR TOLERATING WELL, NO SOB NOTED, BREATHING EVEN, NON LABORED. SAFETY MEASURES IN PLACE, BED LOCKED AND IN LOWEST POSITION, CALL LIGHT WITHIN REACH. ALL NEEDS MET THROUGHOUT THE SHIFT. WILL ENDORSE TO INSTRUCTOR DANCING NURSE.
--- NOTE | 2020-11-24 19:29 | NUR ---
MS MARII INITIAL NOTES Received pt in bed awake and alert watching TV at this time, denies any discomfort, not in any distress noted. dressing on her lower leg dry and intact. kept her warm and comfortable at all times. place call light at reach. will continue monitoring.
[2020-11-24 20:00] VITALS: BP 132/54
[2020-11-25] MEDS: PIPERACILLIN /TAZOBACTAM 2.25 G in IV D5W 50 ML IV SCH ×3 (00:57→17:23)
--- NOTE | 2020-11-25 01:54 | NUR ---
MS MARII NOTES pt sleeping comfortably in bed without any distress noted. respiration even and unlabored. kept her warm and comfortable at all times. will continue monitoring.
[2020-11-25] MEDS: BLOOD SUGAR DIAGNOSTIC 1 EACH STRIP IN SCH ×4 (06:04→22:22)
[2020-11-25] MEDS: INSULIN REGULAR, HUMAN 100 UNIT/ML 3 ML VIAL SQ PRN ×4 (06:10→22:30)
[2020-11-25 06:30] LABS: BASOPHILS # (AUTO) 0.1 /CMM (0.0-0.2); HEMATOCRIT 22 % (33-45); HEMOGLOBIN 7.3 g/dL (11.5-14.8); LYMPHOCYTES # (AUTO) 1.2 /CMM (0.8-4.8); LYMPHOCYTES % (AUTO) 16.6 % (20.0-44.0); MEAN CORPUSCULAR HGB CONC 33 g/dl (31.0-36.0); MEAN CORPUSCULAR VOLUME 96 fL (82-100); MONOCYTES # (AUTO) 0.8 /CMM (0.1-1.30); NEUTROPHILS # (AUTO) 4.6 /CMM (1.8-8.9); NEUTROPHILS % (AUTO) 62.4 % (43.0-81.0); PLATELET COUNT (AUTO) 407 /CMM (150-450); RED BLOOD CELL COUNT(AUTO) 2.28 MIL/uL (4.0-5.2); WHITE BLOOD COUNT (AUTO) 7.4 K/uL (4.3-11.0)
[2020-11-25] MEDS: LEVOTHYROXINE SODIUM 88 MCG TABLET PO SCH (06:50)
[2020-11-25 06:51] LABS: CREATININE 3.9 mg/dL (0.6-1.3); MAGNESIUM 1.8 mg/dL (1.8-2.4); POTASSIUM 3.8 mmol/L (3.5-5.1)
[2020-11-25] MEDS: PANTOPRAZOLE 40 MG TABLET.DR PO SCH (06:51)
--- NOTE | 2020-11-25 07:00 | NUR ---
MS FUR STYLIST CLOSING NOTES Pt awake and alert talking to some one from her cellphone. Am care done with the helped of TREVON Reynolds. Blood sugar checked doen 166, 3 units of insulin given laurel SQ as ordered. No signs of hypo glycemia noted. Denies any pain or any discomfort. All due meds given and all needs met. kept her warm and comfortable at all times. Place call light at reach. will endorse to am nurse for continuity of care.
--- NOTE | 2020-11-25 07:00 | NUR ---
MS RN OPENING NOTE RECEIVED PT AWAKE IN BED AT THIS TIME. A/OX4. PT ABLE TO MAKE NEEDS KNOWN. ARABIC SPEAKING. NO SOB NOTED. NO C/O PAIN AT THIS TIME, NO SIGN OF ANY APPARENT DISTRESS NOTED. PT STABLE ON RA. IV ACCESS NOTED IN RFA G#22 AND RUDY PICC LINE, BOTH INTACT, PATENT AND FLUSHING WELL. LEFT AV SHUNT, AUSCULTATED A BRUIT AND FELT A THRILL. PT NOTED WITH RIGHT LEG SPLINT. SAFETY PRECAUTIONS IN PLACE AND MAINTAINED AT ALL TIMES. BED IN LOWEST LOCKED POSITION, HOB ELEVATED, SIDE RAILS UP X2, CALL LIGHT AND TABLE WITHIN REACH. WILL CONTINUE TO MONITOR
[2020-11-25 08:18] VITALS: BP 134/56
[2020-11-25] MEDS: AMLODIPINE BESYLATE 10 MG TABLET PO SCH (08:39)
[2020-11-25] MEDS: BENAZEPRIL HCL 5 MG TABLET PO SCH (08:39)
[2020-11-25] MEDS: ASPIRIN EC 81 MG TABLET.DR PO SCH (08:39)
[2020-11-25] MEDS: GABAPENTIN 100 MG CAPSULE PO SCH (08:39)
[2020-11-25] MEDS: ATORVASTATIN 40 MG TABLET PO SCH (08:40)
[2020-11-25] MEDS: PROSOURCE / PROSTAT (PYXIS) 30 ML UDC PO SCH (08:40)
[2020-11-25] MEDS: VIT B CMPLX 3/FA/VIT C/BIOTIN 1 TAB TABLET PO SCH (08:40)
[2020-11-25] MEDS: PYRIDOXINE HCL 50 MG TABLET PO SCH (08:40)
[2020-11-25] MEDS: prednisoLONE ACET 1% OPHT DROP 5 ML BOTTLE EACHEYE SCH ×4 (08:41→21:12)
[2020-11-25] MEDS: Z GUARD REMEDY 2 OZ OINT TP PRN (11:44)
[2020-11-25 16:27] VITALS: BP 118/48
--- NOTE | 2020-11-25 18:35 | NUR ---
PT PENDING DISCHARGE TO [facility] AFTER HD AT THIS TIME. REPORT CALLED IN TO LORETTA LUEVANO @ [facility]. WILL ENDORSE TO SHEAR SCRAPMAN FOR ENEDINA
--- NOTE | 2020-11-25 18:37 | NUR ---
MS RN CLOSING NOTES PT AWAKE IN BED AT THIS TIME ONGOING HD. PT REMAINED STABLE THROUGHOUT SHIFT. ALL PT CARE, NEEDS, MEDICATIONS AND TREATMENT ADMINISTERED ANTICIPATED PER ORDER. PT KEPT CLEAN AND DRY.WOUND CARE ADMINISTERED. SAFETY PRECAUTIONS IN PLACE AND MAINTAINED AT ALL TIMES. BED IN LOWEST LOCKED POSITION, HOB ELEVATED, SIDE RAILS UPX2, CALL LIGHT AND TABLE WITHIN REACH. WILL ENDORSE TO TUBING MACHINE OPERATOR NURSE FOR ENEDINA
--- NOTE | 2020-11-25 20:00 | NUR ---
MSRN VERBALIZES GEN PAIN, OFFERED TYLENOL REFUSED. WANTED NORCO EVEN GETTING NAUSEATED FROM MED. REQUESTED ZOFRAN .
[2020-11-25] MEDS: ONDANSETRON HCL/PF 4 MG/2 ML VIAL IVP PRN (20:14)
[2020-11-25] MEDS: HYDROCODONE/APAP 5/325MG TABLET PO PRN (20:14)
--- NOTE | 2020-11-25 20:16 | NUR ---
MSRN HD DONE, 1.5 L OUT. V/S STABLE. VERBALIZES GEN PAIN, NORCO 1 TAB PO ADMINISTERED. STATED NAUSEATED FROM NORCO, ZOFRAN 4MG IVP ADMINISTERED VIA RIGHT UPPER ARM PICC LINE. FLUSHED BOTH PORTS PATENT. HL ON RIGHT WRIST TAKEN OUT. FOR DISCHARGE TONIGHT TO [facility].
--- NOTE | 2020-11-25 20:25 | NUR ---
MSRN CALLED [facility] ETA IS NOT TILL 0130 AM.
--- NOTE | 2020-11-25 20:30 | NUR ---
MSRN TRIED TO CALL ANOTHER AMBULANCE ,[facility], NO ANSWER.
--- NOTE | 2020-11-25 20:40 | NUR ---
MSRN NOTIFIED ROSEMARY RENEE, SPOKE TO CHLOÉ REGARDING PATIENT ARRIVAL POST MIDNIGHT. PER CHLOÉ THEY HAVE NO RN TO ADMITT THE PATIENT NOT TILL THE FOLLOWING MORNING AT 8AM. CN AWARE.
--- NOTE | 2020-11-25 21:04 | NUR ---
MSRN PLACED CALL TO [facility], SPOKE TO JANEEN WILL ARRIVE TOMORROW AT 0830 AM INSTEAD. CN NOTIFIED.
[2020-11-25] MEDS ORDERED: IOHEXOL-350 100 ML VIAL IV ONE (21:12)
[2020-11-25] MEDS ORDERED: CT SWABBABLE VALVE TRANS SET 1 EA INFUS.SET MC ONE (21:12)
[2020-11-25] MEDS ORDERED: IV NS 0.9% 250 ML IV ONE (21:12)
--- NOTE | 2020-11-25 22:33 | NUR ---
MS RN NOTES PATIENT'S BLOOD SUGAR WAS 151 MG/DL AT 2222. 2 UNITS OF REGULAR INSULIN WAS GIVEN. WILL CONTINUE TO MONITOR THE PATIENT.
[2020-11-26] VITALS: BP 133/60
[2020-11-26] MEDS: PIPERACILLIN /TAZOBACTAM 2.25 G in IV D5W 50 ML IV SCH ×2 (00:35→08:22)
--- NOTE | 2020-11-26 05:12 | NUR ---
MSRN SLEPT GOOD ALL NIGHT. FOR DISCHARGE TODAY AT 0830. REMAINS STABLE.
--- NOTE | 2020-11-26 07:00 | NUR ---
MS RN NOTE PATIENT WAS LAST SEEN AWAKE IN THE BED. PATIENT IS A/O X3. PT IS ON ROOM AIR. BREATHING IS EVEN AND UNLABORED. IV ACCESS ON RIGHT ARM INTACT AND PATENT.BED IS IN ITS LOWEST LOCKED POSITION. SIDE RAILS UP X2. CALL LIGHT IS WITHIN REACH OF THE PT. WILL ENDORSE CONTINUITY OF CARE TO ONCOMING SHIFT.
[2020-11-26] MEDS: BLOOD SUGAR DIAGNOSTIC 1 EACH STRIP IN SCH (07:30)
--- NOTE | 2020-11-26 07:46 | NUR ---
MS/RN NOTE RECEIVED REPORT FROM WAGON WINDER NURSE. PATIENT SEEN LAYING IN HOSPITAL BED. A/O X4 HUNGARIAN SPEAKING, NO ACUTE DISTRESS NOTED. PATIENT ON ROOM AIR, TOLERATING WELL, NO SOB NOTED, BREATHING EVEN NON LABORED. ALL SAFETY MEASURES IN PLACE, BED LOCKED AND IN LOWEST POSITION, CALL LIGHT WITHIN REACH. WILL CONTINUE TO MONITOR AND ENSURE SAFETY. PER WAGON WINDER REPORT PATIENT IS TO BE DISCHARGED TO [facility] IS AT 0830. ALL DISCHARGE PAPER WORK COMPLETED AND REPORT GIVEN.
[2020-11-26 08:00] VITALS: BP 139/60
--- NOTE | 2020-11-26 08:00 | NUR ---
MS/RN NOTE PATIENT REFUSED ACCUCHECK.
[2020-11-26] MEDS: ACETAMINOPHEN 325 MG TABLET PO PRN (08:19)
[2020-11-26] MEDS: PANTOPRAZOLE 40 MG TABLET.DR PO SCH (08:19)
[2020-11-26] MEDS: VIT B CMPLX 3/FA/VIT C/BIOTIN 1 TAB TABLET PO SCH (08:19)
[2020-11-26] MEDS: PYRIDOXINE HCL 50 MG TABLET PO SCH (08:19)
[2020-11-26] MEDS: LEVOTHYROXINE SODIUM 88 MCG TABLET PO SCH (08:19)
[2020-11-26] MEDS: GABAPENTIN 100 MG CAPSULE PO SCH (08:19)
[2020-11-26] MEDS: ASPIRIN EC 81 MG TABLET.DR PO SCH (08:19)
[2020-11-26] MEDS: AMLODIPINE BESYLATE 10 MG TABLET PO SCH (08:20)
[2020-11-26] MEDS: ATORVASTATIN 40 MG TABLET PO SCH (08:20)
[2020-11-26 08:23] VITALS: BP 139/60
[2020-11-26] MEDS: BENAZEPRIL HCL 5 MG TABLET PO SCH (08:23)
[2020-11-26] MEDS: PROSOURCE / PROSTAT (PYXIS) 30 ML UDC PO SCH (08:52)
[2020-11-26] MEDS: prednisoLONE ACET 1% OPHT DROP 5 ML BOTTLE EACHEYE SCH (08:52)
--- NOTE | 2020-11-26 09:02 | NUR ---
MS/ASSOCIATE PROFESSOR OF CHEMISTRY PATIENT WAS DISCHARGED IN MEDICALLY STABLE CONDITION. NAME BAND REMOVED, PICC LINE INTACT AND PATENT. COPY OF EXIT CARE GIVEN TO PARAMEDICS, REPORT WAS GIVEN TO SNF PER ADMIRALTY LAWYER REPORT. PATIENT LEFT UNIT FLOOR IN MEDICALLY STABLE CONDITION VIA GURNEY ACCOMPANIED BY 2 PARAMEDICS.
== END 2020-11-26 09:00 | DRG 344 ==
LOC: TELE 17:51 → MED 11-19 09:15
PROVIDERS: ADMIT Nurse Practitioner Acute Care; ATTEND Nurse Practitioner Family
PROC: 0JBQ0ZZ Excision of Right Foot Subcutaneous Tissue and Fascia, Open Approach (ICD-10-PCS; principal; 2020-11-18)
PROC: 5A1D70Z Performance of Urinary Filtration, Intermittent, Less than 6 Hours Per Day (ICD-10-PCS; 2020-11-18)
PROC: B41GYZZ Fluoroscopy of Left Lower Extremity Arteries using Other Contrast (ICD-10-PCS; 2020-11-21)
PROC: 0JBQ0ZZ Excision of Right Foot Subcutaneous Tissue and Fascia, Open Approach (ICD-10-PCS; 2020-11-21)
PROC: 02HV33Z Insertion of Infusion Device into Superior Vena Cava, Percutaneous Approach (ICD-10-PCS; 2020-11-24)
DX: E11.69 Type 2 diabetes mellitus with other specified complication (principal); M86.171 Other acute osteomyelitis, right ankle and foot; E11.22 Type 2 diabetes mellitus with diabetic chronic kidney disease; E44.0 Moderate protein-calorie malnutrition; E11.621 Type 2 diabetes mellitus with foot ulcer; E11.40 Type 2 diabetes mellitus with diabetic neuropathy, unspecified; E11.319 Type 2 diabetes mellitus with unspecified diabetic retinopathy without macular edema; L03.115 Cellulitis of right lower limb; E87.1 Hypo-osmolality and hyponatremia; I12.0 Hypertensive chronic kidney disease with stage 5 chronic kidney disease or end stage renal disease; K21.9 Gastro-esophageal reflux disease without esophagitis; E03.9 Hypothyroidism, unspecified; N18.6 End stage renal disease; D63.8 Anemia in other chronic diseases classified elsewhere; E11.622 Type 2 diabetes mellitus with other skin ulcer; E78.5 Hyperlipidemia, unspecified; Z87.81 Personal history of (healed) traumatic fracture; Z79.82 Long term (current) use of aspirin; Z79.899 Other long term (current) drug therapy; Z86.19 Personal history of other infectious and parasitic diseases; M62.562 Muscle wasting and atrophy, not elsewhere classified, left lower leg; M62.561 Muscle wasting and atrophy, not elsewhere classified, right lower leg; L97.319 Non-pressure chronic ulcer of right ankle with unspecified severity; M19.90 Unspecified osteoarthritis, unspecified site; M85.80 Other specified disorders of bone density and structure, unspecified site; Z79.4 Long term (current) use of insulin; Z99.2 Dependence on renal dialysis; Z91.81 History of falling; S93.01XA Subluxation of right ankle joint, initial encounter; X58.XXXA Exposure to other specified factors, initial encounter; Y92.129 Unspecified place in nursing home as the place of occurrence of the external cause; Z86.14 Personal history of Methicillin resistant Staphylococcus aureus infection; M19.071 Primary osteoarthritis, right ankle and foot; Z20.822 Contact with and (suspected) exposure to COVID-19
CPT/HCPCS: 36415; 36569; 71045-TC; 73610-TC; 73630-TC; 73700-TC; 75630-TC; 80048-TC; 80053-TC; 80061-TC; 80202-TC; 82728-TC; 82962-TC; 83540-TC; 83735-TC; 84100-TC; 85025-TC; 85610-TC; 85652-TC; 85730-TC; 86140-TC; 86704; 86705; 86706; 86803; 87040-TC; 87070-TC; 87081-TC; 87340; 90935-TC; 93926-TC; 97112-TC; 97530-TC; A4216; A6253; A6403; A6407; C1751; C1769; C1894; G0378; G0500; J0692; J0696; J0885; J1644; J1815; J2250; J2405; J2543; J3010; J3370; J3475; J3490; J7050; J7060; Q9967

== ENCOUNTER → 2020-12-28 | Outpatient (CLI) | payer MEDICAID ==
[~2020-12-28] MED LIST: ACET325T53 PO; AMLO-213 PO; AMPI1.5V IJ; ARGI1POW13 PO; ASPI-1420 PO; ATOR80TA PO; BENA20TA9 PO; BENA40TA67 PO; BISA5TAB10 PO; CLON0.1T PO; DOCU-141 PO; FOLI0.8T2 PO; FOLI0.8T23 PO; GABA-532 PO; HYDR-4303 PO; INSU100V42; LEVO88TA5 PO; MAGN400O6 PO; MECL-159 PO; OMEP20TA5 PO; PANT40TA49 PO; POLY17PO4 PO; PRED5DRO16 EACHEYE; PYRI50TA15 PO; SEVE800T7 PO; SIME80TA15 PO; VITA1TAB56 PO; ZINC220C6 PO
== END ==
LOC: WOU 09:30
PROVIDERS: ATTEND Specialist
DX: E11.69 Type 2 diabetes mellitus with other specified complication (principal); M86.671 Other chronic osteomyelitis, right ankle and foot; E11.22 Type 2 diabetes mellitus with diabetic chronic kidney disease; N18.6 End stage renal disease; Z99.2 Dependence on renal dialysis; Z79.82 Long term (current) use of aspirin; Z79.899 Other long term (current) drug therapy; Z98.49 Cataract extraction status, unspecified eye
CPT/HCPCS: G0463

== ENCOUNTER 2020-12-30 12:08 | Inpatient (IN) | payer MEDICAID ==
[~2020-12-30] VITALS: Ht 157.5 cm; Wt 61.7 kg
[~2020-12-30 12:08] MED LIST changes: -ACET325T53 PO; -AMPI1.5V IJ; -ARGI1POW13 PO; -BENA40TA67 PO; -BISA5TAB10 PO; -CLON0.1T PO; -DOCU-141 PO; -FOLI0.8T23 PO; -HYDR-4303 PO; -INSU100V42; -MAGN400O6 PO; -MECL-159 PO; -PANT40TA49 PO; -POLY17PO4 PO; -SEVE800T7 PO; -SIME80TA15 PO; -VITA1TAB56 PO; -ZINC220C6 PO
--- NOTE | 2020-12-30 12:15 | NUR ---
BIB RA 39 FROM HYPERBARIC CHAMBER ,C/O SOB DURING TREATMENT. OXYGEN SATURATION IN ROOM AIR IS AT 88%. RESPIRATION REGULAR AND UNLABORED. DENIES PAIN. RIGHT UPPER ARM PICC LINE PRESENT. LEFT UPPER ARM HD CATH PRESENT. ATTACHED TO THE MONITOR. WARM BLANKET PROVIDED FOR COMFORT. WILL CONTINUE TO MONITOR THE PATIENT.
[2020-12-30] MEDS ORDERED: POLY17PO4 PO (12:48)
[2020-12-30] MEDS ORDERED: FOLI0.8T23 PO (12:48)
[2020-12-30] MEDS ORDERED: MECL-159 PO (12:48)
[2020-12-30] MEDS ORDERED: VITA1TAB56 PO (12:48)
[2020-12-30] MEDS ORDERED: SEVE800T7 PO (12:48)
[2020-12-30] MEDS ORDERED: ACET325T53 PO (12:48)
[2020-12-30] MEDS ORDERED: ZINC220C6 PO (12:48)
[2020-12-30] MEDS ORDERED: PANT40TA49 PO (12:48)
[2020-12-30] MEDS ORDERED: INSU100V42 (12:48)
[2020-12-30] MEDS ORDERED: SIME80TA15 PO (12:48)
[2020-12-30] MEDS ORDERED: DOCU-141 PO (12:48)
[2020-12-30] MEDS ORDERED: CLON0.1T PO (12:48)
[2020-12-30] MEDS ORDERED: AMPI1.5V IJ (12:48)
[2020-12-30] MEDS ORDERED: ARGI1POW13 PO (12:48)
[2020-12-30] MEDS ORDERED: MAGN400O6 PO (12:48)
[2020-12-30] MEDS ORDERED: BISA5TAB10 PO (12:48)
[2020-12-30] MEDS ORDERED: BENA40TA67 PO (12:48)
[2020-12-30] MEDS ORDERED: HYDR-4303 PO (12:48)
[2020-12-30 12:51] LABS: BASOPHILS # (AUTO) 0.2 /CMM (0.0-0.2); BASOPHILS % (AUTO) 2.2 % (0.0-2.0); EOSINOPHILS % (AUTO) 8.1 % (0.0-6.0); HEMATOCRIT 34 % (33-45); HEMOGLOBIN 10.8 g/dL (11.5-14.8); LYMPHOCYTES # (AUTO) 1.6 /CMM (0.8-4.8); LYMPHOCYTES % (AUTO) 22.4 % (20.0-44.0); MEAN CORPUSCULAR HGB CONC 32 g/dl (31.0-36.0); MEAN CORPUSCULAR VOLUME 97 fL (82-100); MONOCYTES # (AUTO) 0.4 /CMM (0.1-1.30); MONOCYTES % (AUTO) 6.2 % (2.0-12.0); NEUTROPHILS # (AUTO) 4.4 /CMM (1.8-8.9); NEUTROPHILS % (AUTO) 61.1 % (43.0-81.0); PLATELET COUNT (AUTO) 366 /CMM (150-450); RED BLOOD CELL COUNT(AUTO) 3.48 MIL/uL (4.0-5.2); WHITE BLOOD COUNT (AUTO) 7.2 K/uL (4.3-11.0)
[2020-12-30 12:58] LABS: CALCIUM, SERUM 8.9 mg/dL (8.5-10.1); CARBON DIOXIDE 30 mmol/L (21-32); CHLORIDE 100 mmol/L (98-107); CREATININE 5.2 mg/dL (0.6-1.3); GLUCOSE 162 mg/dL (74-106); POTASSIUM 5.5 mmol/L (3.5-5.1); SODIUM SERUM 140 mmol/L (136-145); UREA NITROGEN, BLOOD 31 mg/dL (7-18)
[2020-12-30 13:10] LABS: ALANINE AMINOTRANSFERASE 13 U/L (12-78); ALBUMIN 2.7 g/dL (3.4-5.0); ALKALINE PHOSPHATASE 97 U/L (46-116); ASPARTATE AMINOTRANSFERASE 21 U/L (15-37); BILIRUBIN,DIRECT 0.1 mg/dL (0.0-0.2); BILIRUBIN,TOTAL 0.5 mg/dL (0.2-1.0); TOTAL PROTEIN, SERUM 8.7 g/dL (6.4-8.2)
--- NOTE | 2020-12-30 13:43 | NUR ---
covid 19 swab collected and sent to lab
[2020-12-30 13:56] LABS: NT-PRO BNP 101293 PG/ML (0-125)
[2020-12-30] MEDS ORDERED: SODIUM POLYSTYRENE SULFONATE 15 G/60 ML BOTTLE PO ONE (14:00)
[2020-12-30] MEDS ORDERED: HYDROCODONE/APAP 10/325MG TABLET PO PRN (16:00)
[2020-12-30] MEDS ORDERED: MAG HYDROX/AL HYDROX/SIMETH 30 ML UDC PO PRN (16:00)
[2020-12-30] MEDS ORDERED: ONDANSETRON HCL/PF 4 MG/2 ML VIAL IVP PRN (16:00)
[2020-12-30] MEDS ORDERED: ACETAMINOPHEN 325 MG TABLET PO PRN (16:00)
[2020-12-30] MEDS ORDERED: Z GUARD REMEDY 2 OZ OINT TP PRN (16:00)
[2020-12-30] MEDS ORDERED: DEXTROSE 50%-WATER 50 ML DISP.SYRIN IV PRN (16:00)
[2020-12-30] MEDS ORDERED: MAGNESIUM HYDROXIDE 30 ML UDC PO PRN (16:00)
--- NOTE | 2020-12-30 17:50 | NUR ---
THE PATIENT HAD LARGE BM X1
[2020-12-30] MEDS: BLOOD SUGAR DIAGNOSTIC 1 EACH STRIP IN SCH ×2 (18:13→22:00)
[2020-12-30] MEDS: INSULIN REGULAR, HUMAN 100 UNIT/ML 3 ML VIAL SQ PRN ×2 (18:27→22:03)
--- NOTE | 2020-12-30 19:54 | NUR ---
REPORT GIVEN TO VIKTORIA BURGOS FOR ENEDINA.
--- NOTE | 2020-12-30 20:10 | NUR ---
physician internist notes Admitted a 60 y/o female a/o x 4 surinamese speaking able to make needs known admitted with dx of acute dyspnea /pulmonary edema , admission routine care rendered ,resident on hemodialysis on left av shunt hd access with bruit and thrill . on renal standard diet ,v/s bp of 186/86 ,pts is for dialysis tonite. all needs attended too call light within reach , noted with right foot slab per pts she has s/p orif last october 2020 , dressing change and cover slab with kirlix , for wound consult, kept pts clean dry and comfortable.
--- NOTE | 2020-12-30 20:11 | NUR ---
patient taken to assigned room for jermaine.
[2020-12-30 20:34] VITALS: BP 186/86
[2020-12-30] MEDS ORDERED: TEMAZEPAM 15 MG CAPSULE PO PRN (21:00)
[2020-12-30] MEDS: HEPARIN SODIUM, PORCINE 5000 UNITS/1 ML VIAL SQ SCH (21:55)
--- NOTE | 2020-12-30 22:00 | NUR ---
rn telemetry notes Blood sugar at 2200hrs is 149 -2 units of regular insulin given per sliding scale .
[2020-12-31] VITALS: BP 157/79
[2020-12-31] MEDS: HYDROCODONE/APAP 5/325MG TABLET PO PRN ×2 (00:42→06:22)
--- NOTE | 2020-12-31 01:00 | NUR ---
tele nurses notes Hemodialysis treatment done with 2.5 liters out, pts c/o of pain 8/10 on right foot , norco 5/325 mg 1 tab given as ordered.will continue to monitor pts.
[2020-12-31 04:00] VITALS: BP 170/77
[2020-12-31] MEDS ORDERED: MECLIZINE HCL 25 MG TABLET PO PRN (06:00)
[2020-12-31] MEDS ORDERED: CLONIDINE HCL 0.1 MG TABLET PO PRN (06:00)
[2020-12-31 06:53] LABS: BASOPHILS # (AUTO) 0.1 /CMM (0.0-0.2); BASOPHILS % (AUTO) 1.9 % (0.0-2.0); EOSINOPHILS % (AUTO) 6.7 % (0.0-6.0); HEMATOCRIT 33 % (33-45); HEMOGLOBIN 10.4 g/dL (11.5-14.8); LYMPHOCYTES # (AUTO) 1.9 /CMM (0.8-4.8); LYMPHOCYTES % (AUTO) 24.4 % (20.0-44.0); MEAN CORPUSCULAR HGB CONC 32 g/dl (31.0-36.0); MEAN CORPUSCULAR VOLUME 98 fL (82-100); MONOCYTES # (AUTO) 0.5 /CMM (0.1-1.30); MONOCYTES % (AUTO) 6.5 % (2.0-12.0); NEUTROPHILS # (AUTO) 4.6 /CMM (1.8-8.9); NEUTROPHILS % (AUTO) 60.5 % (43.0-81.0); PLATELET COUNT (AUTO) 296 /CMM (150-450); RED BLOOD CELL COUNT(AUTO) 3.36 MIL/uL (4.0-5.2); WHITE BLOOD COUNT (AUTO) 7.7 K/uL (4.3-11.0)
[2020-12-31 07:09] LABS: CALCIUM, SERUM 8.6 mg/dL (8.5-10.1); CREATININE 3.5 mg/dL (0.6-1.3); MAGNESIUM 2.2 mg/dL (1.8-2.4); PHOSPHORUS 4.3 mg/dL (2.5-4.9); POTASSIUM 4.5 mmol/L (3.5-5.1)
--- NOTE | 2020-12-31 07:12 | NUR ---
tele notes Pts remains in bed , stable report given to LORETTA hopkins for continuity of care.
[2020-12-31] MEDS ORDERED: LEVOTHYROXINE SODIUM 100 MCG TABLET PO SCH (07:30)
[2020-12-31] MEDS: BLOOD SUGAR DIAGNOSTIC 1 EACH STRIP IN SCH ×3 (07:48→18:13)
[2020-12-31 08:00] VITALS: BP 169/69
--- NOTE | 2020-12-31 08:05 | NUR ---
RN NOTE: PT RECEIVED ALERT AWAKE ORIENTED X3. ON 2 LPM O2 VIA NC, NO BREATHING DISTRESS NOTED. DENIES PAIN & DISCOMFORT. SAFETY MEASURES OBSERVED. ENCOURAGE PT TO USE CALL LIGHT FOR ASSISTANCE. CALL LIGHT WITHIN REACH. CONTINUE TO MONITOR.
[2020-12-31] MEDS: DOCUSATE SODIUM 100 MG CAPSULE PO SCH ×2 (08:22→17:00)
[2020-12-31] MEDS: SEVELAMER CARBONATE 800 MG POWD.PACK PO SCH ×3 (08:22→17:31)
[2020-12-31] MEDS: BENAZEPRIL HCL 20 MG TABLET PO SCH ×2 (08:23→17:00)
[2020-12-31] MEDS: HEPARIN SODIUM, PORCINE 5000 UNITS/1 ML VIAL SQ SCH (08:24)
[2020-12-31] MEDS ORDERED: PANTOPRAZOLE 40 MG TABLET.DR PO SCH (09:00)
[2020-12-31] MEDS ORDERED: NITROGLYCERIN 30 GM TUBE TP SCH (09:00)
[2020-12-31] MEDS ORDERED: GABAPENTIN 100 MG CAPSULE PO SCH (09:00)
[2020-12-31] MEDS ORDERED: AMLODIPINE BESYLATE 10 MG TABLET PO SCH (09:00)
[2020-12-31] MEDS ORDERED: VIT B CMPLX 3/FA/VIT C/BIOTIN 1 TAB TABLET PO SCH ×2 (09:00)
[2020-12-31] MEDS ORDERED: ZINC SULFATE 220 MG CAPSULE PO SCH (09:00)
[2020-12-31] MEDS ORDERED: ASPIRIN EC 81 MG TABLET.DR PO SCH (09:00)
[2020-12-31 12:00] VITALS: BP 157/75
[2020-12-31 16:00] VITALS: BP 157/69
--- NOTE | 2020-12-31 18:48 | NUR ---
RN NOTE: HOLD EVENING MEDS DUE TO ONGOING HEMODIALYSIS. PLAN TO D/C TO SNF TODAY, WOOD HANDLER TIME IS 8PM. REPORT GIVEN TO SAE RN DIETARY DIRECTOR AT FACILITY. NO ANY OTHER SIGNIFICANT CHANGES NOTED DURING SHIFT. WILL ENDORSE TO PM SHIFT FOR CONTINUITY OF CARE.
[2020-12-31 20:00] VITALS: BP 159/94
--- NOTE | 2020-12-31 20:00 | NUR ---
RN NOTE RECEIVED PT IN BED A/A/O X4, ON 2 L NC SATING 95%.SAFETY MEASURES IN PLACE.
--- NOTE | 2020-12-31 20:48 | NUR ---
RN NOTE PT DISCHARGED TO [facility] ,PT PICKED UP BY EMT , IN STABLE CONDITION.
[2020-12-31] MEDS ORDERED: ATORVASTATIN 10 MG TABLET PO SCH (22:00)
== END 2020-12-31 20:48 | DRG 194 ==
LOC: ER 12:16 → TELE1 20:03
PROVIDERS: ADMIT Nurse Practitioner Acute Care; ATTEND Nurse Practitioner Acute Care
PROC: 5A1D70Z Performance of Urinary Filtration, Intermittent, Less than 6 Hours Per Day (ICD-10-PCS; principal; 2020-12-30)
DX: I13.2 Hypertensive heart and chronic kidney disease with heart failure and with stage 5 chronic kidney disease, or end stage renal disease (principal); E11.22 Type 2 diabetes mellitus with diabetic chronic kidney disease; E44.0 Moderate protein-calorie malnutrition; E11.51 Type 2 diabetes mellitus with diabetic peripheral angiopathy without gangrene; E11.319 Type 2 diabetes mellitus with unspecified diabetic retinopathy without macular edema; L03.115 Cellulitis of right lower limb; E87.1 Hypo-osmolality and hyponatremia; N18.6 End stage renal disease; E11.621 Type 2 diabetes mellitus with foot ulcer; Z99.2 Dependence on renal dialysis; Z79.4 Long term (current) use of insulin; E11.69 Type 2 diabetes mellitus with other specified complication; E78.5 Hyperlipidemia, unspecified; Z87.81 Personal history of (healed) traumatic fracture; Z79.82 Long term (current) use of aspirin; Z79.899 Other long term (current) drug therapy; Z91.81 History of falling; Z79.890 Hormone replacement therapy; K21.9 Gastro-esophageal reflux disease without esophagitis; L97.519 Non-pressure chronic ulcer of other part of right foot with unspecified severity; E87.5 Hyperkalemia; E03.9 Hypothyroidism, unspecified; D64.9 Anemia, unspecified; M86.9 Osteomyelitis, unspecified; M89.9 Disorder of bone, unspecified
CPT/HCPCS: 36415; 71045-TC; 80048-TC; 80061-TC; 80076-TC; 82962-TC; 83735-TC; 83880; 84100-TC; 84484-TC; 85025-TC; 85730-TC; 87081-TC; 90935-TC; 93307-TC; A6253; A6403; G0378; J1644; J1815; J7030; J8597; U0003

== ENCOUNTER 2021-11-03 14:07 | Inpatient (IN) | payer MEDICAID ==
[~2021-11-03] VITALS: Ht 154.9 cm; Wt 65.8 kg
[~2021-11-03 14:07] MED LIST changes: +ACET325T53 PO; +AMPI1.5V IJ; +ARGI1POW13 PO; -BENA20TA9 PO; +BENA40TA67 PO; +BISA5TAB10 PO; +CLON0.1T PO; +DOCU-141 PO; -FOLI0.8T2 PO; +FOLI0.8T23 PO; +HYDR-4303 PO; +INSU100V42; +MAGN400O6 PO; +MECL-159 PO; -OMEP20TA5 PO; +PANT40TA49 PO; +POLY17PO4 PO; -PRED5DRO16 EACHEYE; -PYRI50TA15 PO; +SEVE800T7 PO; +SIME80TA15 PO; +VITA1TAB56 PO; +ZINC220C6 PO
[2021-11-03] MEDS ORDERED: IV NS 0.9% 1,000 ML IV ONE (14:30)
[2021-11-03] MEDS ORDERED: PIPERACILLIN /TAZOBACTAM 3.375 G in IV D5W 50 ML IV ONE (14:30)
[2021-11-03] MEDS ORDERED: VANCOMYCIN 1 GM in IV D5W 250 ML IV ONE (14:30)
--- NOTE | 2021-11-03 14:33 | NUR ---
DARLINE FROM [facility] SNF, HEMODIALYSIS OUTPATIENT: ESTEPHANIA RAMIREZ [facility] T-TH-SAT @ 1245. Addendum: 11/03/21 at 2130 by GERRY Amendment undone in ED - 11/03/21 at 2130 by GERRY MRSA SWAB COLLECTED, SENT TO LAB
--- NOTE | 2021-11-03 14:35 | NUR ---
BLOOD DRAWN SENT TO LAB.
--- NOTE | 2021-11-03 14:35 | NUR ---
Eugene barkley in [facility] - 11/03/21 at 1455 by KEVYN BLOOD DRAWN SNET TO LAB.
[2021-11-03] MEDS ORDERED: LATA2.5D15 RIGHTEYE (14:45)
[2021-11-03] MEDS ORDERED: DEXT15DR6 OP (14:45)
[2021-11-03] MEDS ORDERED: HEPA100D33 SUBCUT (14:45)
--- NOTE | 2021-11-03 14:53 | NUR ---
CALLED DR. BACON
[2021-11-03 15:07] LABS: BASOPHILS # (AUTO) 0.1 K/uL (0.0-0.2); BASOPHILS % (AUTO) 0.8 % (0.0-2.0); EOSINOPHILS % (AUTO) 2.1 % (0.0-6.0); MONOCYTES # (AUTO) 0.7 K/uL (0.1-1.30)
[2021-11-03 15:26] LABS: CALCIUM, SERUM 8.8 mg/dL (8.5-10.1); CREATININE 3.3 mg/dL (0.6-1.3); POTASSIUM 4.2 mmol/L (3.5-5.1)
[2021-11-03 15:33] LABS: HEMATOCRIT 32 % (33-45); HEMOGLOBIN 10.5 g/dL (11.5-14.8); LYMPHOCYTES % (AUTO) 9.3 % (20.0-44.0); MEAN CORPUSCULAR HGB CONC 33 g/dl (31.0-36.0); MEAN CORPUSCULAR VOLUME 91 fL (82-100); MONOCYTES % (AUTO) 7.2 % (2.0-12.0); NEUTROPHILS # (AUTO) 8.3 K/uL (1.8-8.9); NEUTROPHILS % (AUTO) 80.6 % (43.0-81.0); PLATELET COUNT (AUTO) 503 K/uL (150-450); RED BLOOD CELL COUNT(AUTO) 3.54 MIL/uL (4.0-5.2); WHITE BLOOD COUNT (AUTO) 10.3 K/uL (4.3-11.0)
--- NOTE | 2021-11-03 17:00 | NUR ---
TEXT DR. BERNAL FOR MRI APPROVAL.
[2021-11-03] MEDS: DAKINS HALF STRENGTH (0.25%) 480 ML BOTTLE TOP SCH (17:31)
[2021-11-03] MEDS ORDERED: POLYVINYL ALCOHOL 15 ML BOTTLE OP ONE (21:00)
[2021-11-03] MEDS ORDERED: DEXTROSE 50%-WATER 50 ML DISP.SYRIN IV PRN (21:00)
[2021-11-03] MEDS ORDERED: Z GUARD REMEDY 4 OZ OINT TP PRN (21:00)
[2021-11-03] MEDS ORDERED: ACETAMINOPHEN 325 MG TABLET PO PRN ×2 (21:00)
--- NOTE | 2021-11-03 21:31 | NUR ---
MRSA SWAB COLLECTED, SENT TO LAB
[2021-11-03] MEDS: BLOOD SUGAR DIAGNOSTIC 1 EACH STRIP IN SCH (22:00)
[2021-11-03] MEDS ORDERED: ATORVASTATIN 40 MG TABLET PO SCH (22:00)
[2021-11-03] MEDS: LATANOPROST EYE DROP 0.005% 2.5 ML BOTTLE RIGHTEYE SCH (22:00)
[2021-11-03] MEDS: PIPERACILLIN /TAZOBACTAM 2.25 G in IV D5W 50 ML IV SCH (22:00)
--- NOTE | 2021-11-03 22:15 | NUR ---
REPORT GIVEN TO ELHAM BURGOS
--- NOTE | 2021-11-03 22:25 | NUR ---
MS RECEIVING RN NOTE PATIENT RECEIVED FROM ER VIA [facility]. PATIENT RECEIVED FROM [place]. A/OX3. NO S/S OF DISTRESS; PATIENT SATTING WELL ON 3L NC. RAC# #20 INTACT AND PATENT. BELONGINGS WERE INVENTORIED, BUT PATIENT REFUSED TO HAVE HER LUNCH BAG GONE THROUGH. PATIENT ORIENTED TO THE UNIT; GIVEN CALL ROMERO AND TAUGHT HOW TO USE IT. SAFETY MEASURES IN PLACE: BED AT LOWEST POSITION, RAILS UP X2, CALL ROMERO WITHIN REACH. WILL CONTINUE TO MONITOR PATIENT.
--- NOTE | 2021-11-03 22:29 | NUR ---
PATIENT TRANSFERRED TO [place] 321-1 VIA BLS PROTOCOL
[2021-11-03] MEDS: ENOXAPARIN SODIUM 30 MG/0.3 ML DISP.SYRIN SQ SCH (23:29)
[2021-11-03] MEDS: ATORVASTATIN 40 MG TABLET PO SCH (23:30)
[2021-11-03] MEDS ORDERED: PIPERACILLIN /TAZOBACTAM 2.25 G VIAL IV ONE (23:31)
[2021-11-03] MEDS: INSULIN REGULAR, HUMAN 100 UNIT/ML 3 ML VIAL SQ PRN (23:44)
[2021-11-04] MEDS: PIPERACILLIN /TAZOBACTAM 2.25 G in IV D5W 50 ML IV SCH ×3 (05:00→21:08)
[2021-11-04] MEDS ORDERED: PIPERACILLIN /TAZOBACTAM 2.25 G VIAL IV ONE (06:21)
--- NOTE | 2021-11-04 06:54 | NUR ---
MS LORETTA CLOSING NOTE PATIENT IS ASLEEP IN ROOM. A/OX3. NO S/S OF DISTRESS, BREATHING W/O DIFFICULTY ON 3L NC. RAC #20 SL INTACT AND PATENT. SAFETY MEASURES IN PLACE. WILL ENDORSE TO NEXT SHIFT FOR ENEDINA. Addendum: 11/04/21 at 0700 by ELHAM CAICEDO RN REACHED OUT TO SON LISTED PRIMARY CONTACT IN CHART (SABINA [phone]), BUT HE DID NOT ALGEBRA TEACHER NOR WAS I ABLE TO LEAVE A MESSAGE THE PHONE KEPT RINGING (NO VOICEMAIL SETUP).
[2021-11-04 07:24] LABS: BASOPHILS # (AUTO) 0.1 K/uL (0.0-0.2); BASOPHILS % (AUTO) 0.8 % (0.0-2.0); EOSINOPHILS % (AUTO) 1.9 % (0.0-6.0); HEMATOCRIT 29 % (33-45); HEMOGLOBIN 9.4 g/dL (11.5-14.8); LYMPHOCYTES # (AUTO) 1.2 K/uL (0.8-4.8); LYMPHOCYTES % (AUTO) 8.3 % (20.0-44.0); MEAN CORPUSCULAR HGB CONC 32 g/dl (31.0-36.0); MEAN CORPUSCULAR VOLUME 91 fL (82-100); MONOCYTES # (AUTO) 0.8 K/uL (0.1-1.30); MONOCYTES % (AUTO) 5.7 % (2.0-12.0); NEUTROPHILS # (AUTO) 11.7 K/uL (1.8-8.9); NEUTROPHILS % (AUTO) 83.3 % (43.0-81.0); PLATELET COUNT (AUTO) 435 K/uL (150-450); RED BLOOD CELL COUNT(AUTO) 3.24 MIL/uL (4.0-5.2); WHITE BLOOD COUNT (AUTO) 14.1 K/uL (4.3-11.0)
--- NOTE | 2021-11-04 07:24 | NUR ---
RN NOTE JUST GOT OFF PHONE W/ SON WHO RETURNED MY CALL. VERIFIED HIS AND PATIENT'S IDENTITY BEFORE PRECEDING. HE WILL BRING ADVANCE DIRECTIVE PAPERWORK TO THE HOSPITAL SOON HE CAN. HE WAS NOTIFIED OF HER CURRENT STATUS. VERY PLEASANT ON THE PHONE. ANSWERED ALL QUESTIONS HE HAD.
[2021-11-04] MEDS: BLOOD SUGAR DIAGNOSTIC 1 EACH STRIP IN SCH ×4 (07:29→21:07)
--- NOTE | 2021-11-04 07:33 | NUR ---
RN OPENING NOTE RECEIVED PATIENT IN BED, AWAKE, A/OX3, WITH PERIODS OF FORGETFULNESS NOTED. NO S/S OF DISTRESS. O2 AT 3LPM VIA NC, TOLERATING WELL, NO S/SX OF DISTRESS NOTED. RAC# #20 INTACT AND PATENT. SAFETY MEASURES IN PLACE: BED AT LOWEST LOCKED POSITION, SIDE RAILS UP X2, CALL ROMERO WITHIN REACH. WILL CONTINUE TO MONITOR PATIENT ACCORDINGLY.
[2021-11-04] MEDS: LEVOTHYROXINE SODIUM 75 MCG TABLET PO SCH (07:59)
[2021-11-04 08:00] VITALS: BP_SYST 100; BP_DIAS 41; BP_DIAS 60
[2021-11-04] MEDS: ASPIRIN EC 81 MG TABLET.DR PO SCH (08:39)
[2021-11-04] MEDS: VIT B CMPLX 3/FA/VIT C/BIOTIN 1 TAB TABLET PO SCH (08:39)
[2021-11-04] MEDS: SEVELAMER CARBONATE 800 MG TABLET PO SCH ×3 (08:39→17:10)
[2021-11-04] MEDS: PANTOPRAZOLE 40 MG TABLET.DR PO SCH (08:40)
[2021-11-04] MEDS: BENAZEPRIL HCL 10 MG TABLET PO SCH ×2 (08:40→08:43)
[2021-11-04] MEDS: GABAPENTIN 100 MG CAPSULE PO SCH (08:40)
[2021-11-04] MEDS: DOCUSATE SODIUM 100 MG CAPSULE PO SCH ×2 (08:40→16:27)
[2021-11-04] MEDS: DAKINS HALF STRENGTH (0.25%) 480 ML BOTTLE TOP SCH (09:00)
[2021-11-04] MEDS: INSULIN REGULAR, HUMAN 100 UNIT/ML 3 ML VIAL SQ PRN (11:48)
[2021-11-04 11:58] LABS: CALCIUM, SERUM 8.8 mg/dL (8.5-10.1); CREATININE 3.9 mg/dL (0.6-1.3); MAGNESIUM 2.1 mg/dL (1.8-2.4); PHOSPHORUS 4.2 mg/dL (2.5-4.9); POTASSIUM 4.2 mmol/L (3.5-5.1)
--- NOTE | 2021-11-04 12:54 | NUR ---
RN NOTES VANCO TROUGH RESULT OF 21 RELAYED TO PHARMACY SPOKE TO JAMIL. NO DOSE OF VANCOMYCIN TODAY PER PHARMACIST.
[2021-11-04] MEDS ORDERED: ETOMIDATE 2 MG/ML VIAL IV ONE (14:13)
[2021-11-04] MEDS ORDERED: SUCCINYLCHOLINE CHLORIDE 20 MG/ML VIAL IV ONE (14:13)
[2021-11-04 16:00] VITALS: BP_SYST 112; BP_DIAS 45; BP_DIAS 49
[2021-11-04] MEDS ORDERED: VANCOMYCIN 500 MG in IV D5W 100 ML IV PRN (16:00)
--- NOTE | 2021-11-04 18:45 | NUR ---
RN CLOSING NOTE PATIENT IN BED, AWAKE, A/OX3, WITH PERIODS OF FORGETFULNESS NOTED. NO S/S OF DISTRESS. O2 AT 3LPM VIA NC, TOLERATING WELL, NO S/SX OF DISTRESS NOTED. RAC# #20 INTACT AND PATENT, MARY HD CATHETER NOTED. ONGOING DIALYSIS AT THIS TIME, TOLERATING PROCEDURE WELL. IN NO SIGNS OF DISTRESS NOTED. SAFETY MEASURES IN PLACE: BED AT LOWEST LOCKED POSITION, SIDE RAILS UP X2, CALL ROMERO WITHIN REACH. ALL NEEDS ATTENDED AND MET. DUE MEDS GIVEN ORDERED. WILL ENDORSE TO ONCOMING SHIFT FOR ENEDINA. Addendum: 11/04/21 at 1851 by JACEY FARRELL RN ADDENDUM: HD DONE. 2L OUT. PATIENT TOLERATED PROCEDURE WELL.
--- NOTE | 2021-11-04 19:31 | NUR ---
MS RN OPENING NOTE PATIENT IS AWAKE IN BED. A/OX3. NO S/S OF DISTRESS, BREATHING UNLABORED ON 3L NC. RAC #20 SL INTACT AND PATENT. SAFETY MEASURES IN PLACE: BED AT LOWEST POSITION, RAILS UP X2, CALL ROMERO WITHIN REACH. WILL CONTINUE TO MONITOR PATIENT.
[2021-11-04 20:00] VITALS: BP 134/48
[2021-11-04] MEDS: LATANOPROST EYE DROP 0.005% 2.5 ML BOTTLE RIGHTEYE SCH (21:08)
[2021-11-04] MEDS: ATORVASTATIN 40 MG TABLET PO SCH (21:08)
[2021-11-04] MEDS: ENOXAPARIN SODIUM 30 MG/0.3 ML DISP.SYRIN SQ SCH (21:13)
[2021-11-04] MEDS: *INSULIN REGULAR(HUMULIN R)HUM 100 UNIT/ML VIAL SQ PRN (21:16)
[2021-11-04 21:55] LABS: THYROID STIMULATING HORMONE 1.678 uIU/mL (0.358-3.74)
[2021-11-05] MEDS: HYDROCODONE/APAP 5/325MG TABLET PO PRN (00:25)
[2021-11-05] MEDS: PIPERACILLIN /TAZOBACTAM 2.25 G in IV D5W 50 ML IV SCH ×3 (04:20→22:17)
[2021-11-05 06:26] LABS: BASOPHILS # (AUTO) 0.1 K/uL (0.0-0.2); BASOPHILS % (AUTO) 0.9 % (0.0-2.0); EOSINOPHILS % (AUTO) 3.7 % (0.0-6.0); HEMATOCRIT 29 % (33-45); HEMOGLOBIN 9.5 g/dL (11.5-14.8); LYMPHOCYTES % (AUTO) 10.7 % (20.0-44.0); MEAN CORPUSCULAR HGB CONC 33 g/dl (31.0-36.0); MEAN CORPUSCULAR VOLUME 90 fL (82-100); MONOCYTES # (AUTO) 0.8 K/uL (0.1-1.30); MONOCYTES % (AUTO) 8.1 % (2.0-12.0); NEUTROPHILS # (AUTO) 7.2 K/uL (1.8-8.9); NEUTROPHILS % (AUTO) 76.6 % (43.0-81.0); PLATELET COUNT (AUTO) 424 K/uL (150-450); RED BLOOD CELL COUNT(AUTO) 3.25 MIL/uL (4.0-5.2); WHITE BLOOD COUNT (AUTO) 9.4 K/uL (4.3-11.0)
--- NOTE | 2021-11-05 06:53 | NUR ---
MS RN CLOSING NOTE PATIENT IS ASLEEP IN BED. A/OX3. NO S/S OF DISTRESS, BREATHING UNLABORED ON 3L NC. RAC #20 SL INTACT AND PATENT. SAFETY MEASURES IN PLACE: BED AT LOWEST POSITION, RAILS UP X2, CALL ROMERO WITHIN REACH. WILL ENDORSE TO NEXT SHIFT FOR ENEDINA.
[2021-11-05] MEDS: BLOOD SUGAR DIAGNOSTIC 1 EACH STRIP IN SCH ×4 (06:56→22:17)
[2021-11-05] MEDS: INSULIN REGULAR, HUMAN 100 UNIT/ML 3 ML VIAL SQ PRN ×3 (07:00→17:05)
[2021-11-05 07:18] LABS: CALCIUM, SERUM 8.7 mg/dL (8.5-10.1); MAGNESIUM 2.3 mg/dL (1.8-2.4); PHOSPHORUS 3.6 mg/dL (2.5-4.9); POTASSIUM 4.4 mmol/L (3.5-5.1)
--- NOTE | 2021-11-05 07:21 | NUR ---
RN OPENING NOTES RECEIVED PATIENT IN BED, AWAKE, A/OX3, WITH PERIODS OF FORGETFULNESS NOTED. NO S/S OF DISTRESS. O2 AT 3LPM VIA NC, TOLERATING WELL, NO S/SX OF DISTRESS NOTED. RAC# #20 INTACT AND PATENT. MARY HD CATHETER IN PLACE NOTED. SAFETY MEASURES IN PLACE: BED AT LOWEST LOCKED POSITION, SIDE RAILS UP X2, CALL ROMERO WITHIN REACH. WILL CONTINUE TO MONITOR PATIENT ACCORDINGLY.
[2021-11-05] MEDS: LEVOTHYROXINE SODIUM 75 MCG TABLET PO SCH (07:37)
[2021-11-05] MEDS: SEVELAMER CARBONATE 800 MG TABLET PO SCH ×3 (07:37→17:06)
[2021-11-05 08:00] VITALS: BP_SYST 130; BP_DIAS 48; BP_DIAS 58
[2021-11-05] MEDS: DOCUSATE SODIUM 100 MG CAPSULE PO SCH ×2 (08:48→17:06)
[2021-11-05] MEDS: ASPIRIN EC 81 MG TABLET.DR PO SCH (08:48)
[2021-11-05] MEDS: PANTOPRAZOLE 40 MG TABLET.DR PO SCH (08:48)
[2021-11-05] MEDS: VIT B CMPLX 3/FA/VIT C/BIOTIN 1 TAB TABLET PO SCH (08:48)
[2021-11-05] MEDS: GABAPENTIN 100 MG CAPSULE PO SCH (08:48)
[2021-11-05] MEDS: BENAZEPRIL HCL 10 MG TABLET PO SCH (08:49)
[2021-11-05] MEDS: DAKINS HALF STRENGTH (0.25%) 480 ML BOTTLE TOP SCH (09:43)
[2021-11-05] MEDS: POLYETHYLENE GLYCOL 3350 17 GM POWD.PACK PO PRN (12:10)
[2021-11-05 16:00] VITALS: BP 127/47
--- NOTE | 2021-11-05 18:24 | NUR ---
RN NOTES CONSENT SECURED FOR AORTIC ANGIOGRAM WITH RUNOFF AND POSSIBLE INTERVENTION. VERBAL CONSET GIVEN BY PATIENT'S SON LUIS HICKMAN WITH 2 RN WITNESS.
--- NOTE | 2021-11-05 18:34 | NUR ---
RN CLOSING NOTES PATIENT IN BED, AWAKE, A/OX3, WITH PERIODS OF FORGETFULNESS NOTED. NO S/S OF DISTRESS. O2 AT 3LPM VIA NC, TOLERATING WELL, NO S/SX OF DISTRESS NOTED. RAC#20 INTACT AND PATENT. MARY HD CATHETER IN PLACE NOTED WITH DRY AND INTACT DRESSING. SAFETY MEASURES IN PLACE: BED AT LOWEST LOCKED POSITION, SIDE RAILS UP X2, CALL ROMERO WITHIN REACH. ALL NEEDS ATTENDED AND MET. DUE MEDS GIVEN ORDERED. WILL ENDORSE TO ONCOMING SHIFT FOR ENEDINA.
--- NOTE | 2021-11-05 19:20 | NUR ---
MS/RN OPENING NOTE RECEIVED PATIENT RESTING IN BED. AWAKE, ALERT AND ORIENTED X 3. ABLE TO MAKE NEEDS KNOWN. DENIES PAIN AT THIS TIME. CONTINUES ON O2 3L VIA NC WITH NO S/SX OF RESPIRATORY DISTRESS NOTED. IV ACCESS TO RIGHT AC #20G INTACT, PATENT AND SALINE LOCKED. LEFT UPPER ARM AV FISTULA IN PLACE FOR HD. PATIENT TO BE NPO EXCEPT MEDS AFTER MIDNIGHT FOR PLANNED PROCEDURE IN AM. PATIENT AWARE AND AGREEABLE. CONSENTS SIGNED IN CHART. CALL LIGHT WITHIN REACH. ASPIRATION, FALL AND SAFETY PRECAUTIONS MAINTAINED. WILL CONTINUE TO MONITOR.
[2021-11-05 20:13] VITALS: BP 148/58
[2021-11-05] MEDS: ENOXAPARIN SODIUM 30 MG/0.3 ML DISP.SYRIN SQ SCH (21:00)
[2021-11-05] MEDS: ATORVASTATIN 40 MG TABLET PO SCH (22:17)
[2021-11-05] MEDS: LATANOPROST EYE DROP 0.005% 2.5 ML BOTTLE RIGHTEYE SCH (22:18)
[2021-11-06] MEDS: PIPERACILLIN /TAZOBACTAM 2.25 G in IV D5W 50 ML IV SCH ×3 (04:36→21:06)
--- NOTE | 2021-11-06 06:30 | NUR ---
MS/RN CLOSING NOTE PATIENT CURRENTLY SLEEPING IN BED. ALERT AND ORIENTED X 3. ABLE TO MAKE NEEDS KNOWN. DENIES PAIN AT THIS TIME. CONTINUES ON O2 3L VIA NC WITH NO S/SX OF RESPIRATORY DISTRESS NOTED. IV ACCESS TO RIGHT FA #20G INTACT, PATENT AND SALINE LOCKED. LEFT UPPER ARM AV FISTULA IN PLACE FOR HD. PATIENT IS NPO EXCEPT MEDS FOR PLANNED PROCEDURE TODAY. CONSENTS SIGNED IN CHART. CALL LIGHT WITHIN REACH. ASPIRATION, FALL AND SAFETY PRECAUTIONS MAINTAINED. WILL ENDORSE PLAN OF CARE TO ONCOMING SHIFT.
[2021-11-06] MEDS: BLOOD SUGAR DIAGNOSTIC 1 EACH STRIP IN SCH ×4 (06:55→21:31)
[2021-11-06 07:02] LABS: BASOPHILS # (AUTO) 0.1 K/uL (0.0-0.2); BASOPHILS % (AUTO) 1.2 % (0.0-2.0); HEMATOCRIT 29 % (33-45); HEMOGLOBIN 9.4 g/dL (11.5-14.8); LYMPHOCYTES # (AUTO) 1.1 K/uL (0.8-4.8); LYMPHOCYTES % (AUTO) 11.9 % (20.0-44.0); MEAN CORPUSCULAR HGB CONC 33 g/dl (31.0-36.0); MEAN CORPUSCULAR VOLUME 90 fL (82-100); MONOCYTES # (AUTO) 0.7 K/uL (0.1-1.30); MONOCYTES % (AUTO) 7.8 % (2.0-12.0); NEUTROPHILS % (AUTO) 74.1 % (43.0-81.0); PLATELET COUNT (AUTO) 446 K/uL (150-450); RED BLOOD CELL COUNT(AUTO) 3.19 MIL/uL (4.0-5.2); WHITE BLOOD COUNT (AUTO) 9.4 K/uL (4.3-11.0)
[2021-11-06 07:19] LABS: CALCIUM, SERUM 8.8 mg/dL (8.5-10.1); CREATININE 4.3 mg/dL (0.6-1.3); MAGNESIUM 2.5 mg/dL (1.8-2.4); PHOSPHORUS 4.6 mg/dL (2.5-4.9); POTASSIUM 4.9 mmol/L (3.5-5.1)
--- NOTE | 2021-11-06 07:30 | NUR ---
MS RN OPENING NOTES RECEIVED PATIENT IN BED AWAKE, A/O X4, VERBALLY RESPONSIVE. NO SIGNS OF ACUTE DISTRESS NOTED. ON O2 @ 2LPM VIA N/C, NO SOB NOTED. SATURATION @100%. BREATHING EVEN AND UNLABORED. WITH IV ACCESS ON RIGHT FOREARM #20G, INTACT AND PATENT, SALINE LOCKED. WITH AV FISTULA ON MARY, (+) BRUITS AND THRILLS, NO BLEEDING NOTED. ON NPO FOR ANGIOGRAM THIS AM. SAFETY MEASURES IN PLACE. BED IN LOWEST AND LOCKED POSITION, SR UP, CALL LIGHT PLACED WITHIN EASY REACH. WILL CONTINUE TO MONITOR.
[2021-11-06] MEDS: LEVOTHYROXINE SODIUM 75 MCG TABLET PO SCH (07:52)
[2021-11-06] MEDS: SEVELAMER CARBONATE 800 MG TABLET PO SCH ×3 (08:00→17:05)
[2021-11-06 08:23] VITALS: BP 128/47
[2021-11-06] MEDS: PANTOPRAZOLE 40 MG TABLET.DR PO SCH (09:00)
[2021-11-06] MEDS: DOCUSATE SODIUM 100 MG CAPSULE PO SCH ×2 (09:00→17:04)
[2021-11-06] MEDS: VIT B CMPLX 3/FA/VIT C/BIOTIN 1 TAB TABLET PO SCH (09:00)
[2021-11-06] MEDS: BENAZEPRIL HCL 10 MG TABLET PO SCH (09:00)
[2021-11-06] MEDS: ASPIRIN EC 81 MG TABLET.DR PO SCH (09:00)
[2021-11-06] MEDS: GABAPENTIN 100 MG CAPSULE PO SCH (09:00)
[2021-11-06] MEDS: DAKINS HALF STRENGTH (0.25%) 480 ML BOTTLE TOP SCH (09:24)
[2021-11-06] MEDS ORDERED: IODIXANOL 150 ML IV ONE (11:07)
--- NOTE | 2021-11-06 11:20 | NUR ---
RN NOTES PATIENT PICKED UP FOR ANGIOGRAM OF RIGHT LOWER EXTREMITY, IN STABLE CONDITION.
[2021-11-06] MEDS ORDERED: MIDAZOLAM HCL 2 MG/2ML VIAL ONE (11:44)
[2021-11-06] MEDS ORDERED: FENTANYL PF 100MCG/2ML AMPUL ONE (11:44)
[2021-11-06] MEDS ORDERED: LIDOCAINE HCL/PF 1% 30 ML SDV ONE (11:45)
--- NOTE | 2021-11-06 11:49 | NUR ---
WOUND CARE CONSULT: PT OFF UNIT AT THIS TIME. WILL SEE PT PT CONDITION PERMITS.
[2021-11-06] MEDS ORDERED: IV NS 0.9% 1,000 ML ONE (11:51)
--- NOTE | 2021-11-06 13:05 | NUR ---
RN NOTES PATIENT BACK FROM ANGIOGRAM OF RIGHT LOWER EXTREMITY, PROCEDURE TOLERATED WELL. WITH DRESSING ON LEFT FEMORAL AREA CLEAN, DRY AND INTACT. NO BLEEDING NOTED. WILL CONTINUE TO MONITOR PATIENT.
[2021-11-06] MEDS ORDERED: VANCOMYCIN 500 MG in IV D5W 100 ML IV SCH (15:00)
[2021-11-06 15:53] VITALS: BP 131/71
[2021-11-06] MEDS: INSULIN REGULAR, HUMAN 100 UNIT/ML 3 ML VIAL SQ PRN (17:00)
--- NOTE | 2021-11-06 18:45 | NUR ---
MS RN CLOSING NOTES PATIENT IN BED AWAKE, A/O X4, VERBALLY RESPONSIVE. NO SIGNS OF ACUTE DISTRESS NOTED. ON ROOM AIR, TOLERATING WELL. SATURATION @99%. BREATHING EVEN AND UNLABORED. WITH IV ACCESS ON RIGHT FOREARM #20G, INTACT AND PATENT, SALINE LOCKED. AND RIGHT UPPER ARM MIDLINE #18G, INTACT AND PATENT. SL. WITH AV FISTULA ON MARY, (+) BRUITS AND THRILLS, NO BLEEDING NOTED. SAFETY MEASURES IN PLACE. BED IN LOWEST AND LOCKED POSITION, SR UP, CALL LIGHT PLACED WITHIN EASY REACH. WILL ENDORSE TO NEXT SHIFT FOR ENEDINA.
[2021-11-06] MEDS: IV NS 0.9% 1,000 ML IV SCH (19:44)
[2021-11-06 20:00] VITALS: BP 136/58
--- NOTE | 2021-11-06 20:34 | NUR ---
MS/TELE/RN PATIENT WAS IN BED AWAKE, ALERT, ORIENTED, PATIENT WAS TALKING SOMEBODY ON THE PHONE, NO DISTRESS NOTED, CALL LIGHT IN REACH, NEEDS ATTENDED, WILL MONITOR.
[2021-11-06] MEDS: ATORVASTATIN 40 MG TABLET PO SCH (21:21)
[2021-11-06] MEDS: LATANOPROST EYE DROP 0.005% 2.5 ML BOTTLE RIGHTEYE SCH (21:21)
[2021-11-06] MEDS: ENOXAPARIN SODIUM 30 MG/0.3 ML DISP.SYRIN SQ SCH (21:23)
--- NOTE | 2021-11-07 00:55 | NUR ---
MS/TELE/RN PATIENT IS SLEEPING AT THIS TIME, APPEAR COMFORTABLE, NO SIGNS OF DISTRESS NOTED, CALL LIGHT IN REACH, WILL CONTINUE TO MONITOR.
[2021-11-07] MEDS: IV NS 0.9% 1,000 ML IV SCH ×3 (03:47→21:47)
[2021-11-07] MEDS: PIPERACILLIN /TAZOBACTAM 2.25 G in IV D5W 50 ML IV SCH ×3 (05:01→21:47)
[2021-11-07] MEDS: BLOOD SUGAR DIAGNOSTIC 1 EACH STRIP IN SCH ×4 (06:24→22:15)
--- NOTE | 2021-11-07 06:27 | NUR ---
MS/TELE/RN PATIENT IS STILL SLEEPING AT THIS TIME, APPEAR COMFORTABLE, NO DISTRESS NOTED, CALL LIGHT IN REACH, ALL NEEDS ATTENDED AT THIS TIME, WILL CONTINUE TO MONITOR.
--- NOTE | 2021-11-07 07:30 | NUR ---
MS RN OPENING NOTES RECEIVED PATIENT IN BED AWAKE, A/O X4. ON ROOM AIR, TOLERATING WELL. EQUAL CHEST EXPANSION WITH UNLABORED RESPIRATIONS. IV ACCESS ON RFA #20G AND RIGHT UPPER ARM MIDLINE #18G, BOTH INTACT AND PATENT. AV FISTULA ON MARY, (+) BRUITS AND THRILLS, NO BLEEDING NOTED. SAFETY MEASURES IN PLACE. BED IN LOWEST AND LOCKED POSITION, SIDE RAILS UP X2, CALL LIGHT WITHIN EASY REACH. WILL CONTINUE TO MONITOR PATIENT
[2021-11-07 07:39] LABS: BASOPHILS # (AUTO) 0.1 K/uL (0.0-0.2); BASOPHILS % (AUTO) 1.2 % (0.0-2.0); EOSINOPHILS % (AUTO) 3.8 % (0.0-6.0); HEMATOCRIT 27 % (33-45); HEMOGLOBIN 9.1 g/dL (11.5-14.8); LYMPHOCYTES % (AUTO) 12.1 % (20.0-44.0); MEAN CORPUSCULAR HGB CONC 33 g/dl (31.0-36.0); MEAN CORPUSCULAR VOLUME 90 fL (82-100); MONOCYTES # (AUTO) 0.8 K/uL (0.1-1.30); MONOCYTES % (AUTO) 9.7 % (2.0-12.0); NEUTROPHILS % (AUTO) 73.2 % (43.0-81.0); PLATELET COUNT (AUTO) 424 K/uL (150-450); RED BLOOD CELL COUNT(AUTO) 3.02 MIL/uL (4.0-5.2); WHITE BLOOD COUNT (AUTO) 8.3 K/uL (4.3-11.0)
--- NOTE | 2021-11-07 07:53 | NUR ---
WOUND CARE CONSULT: PT PRESENTS WITH SACRAL SCAR, PRESENT ON ADMISSION. RECOMMENDATIONS MADE FOR SKIN PROTECTION. DISCUSSED WITH NURSING STAFF. MD IN AGREEMENT WITH PLAN OF CARE.
[2021-11-07 08:15] VITALS: BP 149/53
[2021-11-07] MEDS: DOCUSATE SODIUM 100 MG CAPSULE PO SCH ×2 (08:47→17:00)
[2021-11-07] MEDS: ASPIRIN EC 81 MG TABLET.DR PO SCH (08:47)
[2021-11-07] MEDS: BENAZEPRIL HCL 10 MG TABLET PO SCH (08:47)
[2021-11-07] MEDS: GABAPENTIN 100 MG CAPSULE PO SCH (08:47)
[2021-11-07] MEDS: PANTOPRAZOLE 40 MG TABLET.DR PO SCH (08:47)
[2021-11-07] MEDS: VIT B CMPLX 3/FA/VIT C/BIOTIN 1 TAB TABLET PO SCH (08:47)
[2021-11-07] MEDS: SEVELAMER CARBONATE 800 MG TABLET PO SCH ×3 (08:48→18:00)
[2021-11-07 08:49] LABS: CALCIUM, SERUM 8.1 mg/dL (8.5-10.1); CREATININE 5.1 mg/dL (0.6-1.3); MAGNESIUM 2.3 mg/dL (1.8-2.4); PHOSPHORUS 4.8 mg/dL (2.5-4.9)
[2021-11-07] MEDS: LEVOTHYROXINE SODIUM 75 MCG TABLET PO SCH (08:52)
[2021-11-07] MEDS: DAKINS HALF STRENGTH (0.25%) 480 ML BOTTLE TOP SCH (12:22)
[2021-11-07] MEDS: INSULIN REGULAR, HUMAN 100 UNIT/ML 3 ML VIAL SQ PRN (12:31)
[2021-11-07] MEDS: POLYETHYLENE GLYCOL 3350 17 GM POWD.PACK PO PRN (12:38)
[2021-11-07] MEDS ORDERED: VANCOMYCIN POST DIALYSIS 500MG IV PRN ×2 (16:00)
[2021-11-07 16:14] VITALS: BP 132/45
--- NOTE | 2021-11-07 18:50 | NUR ---
MS RN CLOSING NOTES PATIENT IN BED RECEIVING HD AT THE MOMENT. NO COMPLAINTS OF PAIN DURING SHIFT. ALL ORDERS CARRIED OUT AND NEEDS MET. SAFETY MEASURES IN PLACE. BED IN LOWEST AND LOCKED POSITION, SIDE RAILS UP X2, CALL LIGHT WITHIN EASY REACH. WILL ENDORSE TO THE ORDINARY SEAMAN NURSE FOR ENEDINA
--- NOTE | 2021-11-07 19:55 | NUR ---
MS/TELE/RN RECEIVED PATIENT APPEARS SLEEPING, APPEARS COMFORTABLE, NO SIGNS OF DISTRESS NOTE, HD IN PROGRESS WITH HD RN AT BEDSIDE. WILL MONITOR.
[2021-11-07 20:00] VITALS: BP 159/65
--- NOTE | 2021-11-07 21:20 | NUR ---
MS/TELE/RN HD WAS FINISHED AT AROUND 2044, 2L WAS OUT.
[2021-11-07] MEDS: LATANOPROST EYE DROP 0.005% 2.5 ML BOTTLE RIGHTEYE SCH (22:10)
[2021-11-07] MEDS: ATORVASTATIN 40 MG TABLET PO SCH (22:10)
[2021-11-07] MEDS: ENOXAPARIN SODIUM 30 MG/0.3 ML DISP.SYRIN SQ SCH (22:11)
--- NOTE | 2021-11-07 22:16 | NUR ---
MS/TELE/RN ACCU CHECK BLOOD SUGAR 118, SNACK GIVEN.
--- NOTE | 2021-11-08 00:09 | NUR ---
MS/TELE/RN PATIENT IS SLEEPING AT THIS TIME, APPEARS COMFORTABLE, NO DISTRESS NOTED, CALL LIGHT IN REACH, WILL CONTINUE TO MONITOR.
[2021-11-08] MEDS: PIPERACILLIN /TAZOBACTAM 2.25 G in IV D5W 50 ML IV SCH ×3 (04:52→21:16)
--- NOTE | 2021-11-08 05:40 | NUR ---
MS/ENEDELIA/INJECTION WAX MOLDER CULTURE SPECIMEN RIGHT FOOT OBTAINED ORDERED AND SENT TO LAB.
[2021-11-08] MEDS: IV NS 0.9% 1,000 ML IV SCH ×3 (06:09→21:25)
--- NOTE | 2021-11-08 06:11 | NUR ---
MS/TELE/RN PATIENT IS AWAKE, COMFORTABLE, NO DISTRESS NOTED, CALL LIGHT IN REACH, ALL NEEDS ATTENDED AT THIS TIME, WILL CONTINUE TO MONITOR.
[2021-11-08] MEDS: INSULIN REGULAR, HUMAN 100 UNIT/ML 3 ML VIAL SQ PRN ×2 (06:29→13:03)
[2021-11-08] MEDS: BLOOD SUGAR DIAGNOSTIC 1 EACH STRIP IN SCH ×4 (06:30→21:22)
[2021-11-08 06:45] LABS: BASOPHILS # (AUTO) 0.1 K/uL (0.0-0.2); BASOPHILS % (AUTO) 2.2 % (0.0-2.0); EOSINOPHILS % (AUTO) 5.1 % (0.0-6.0); HEMATOCRIT 26 % (33-45); HEMOGLOBIN 8.7 g/dL (11.5-14.8); LYMPHOCYTES # (AUTO) 1.1 K/uL (0.8-4.8); LYMPHOCYTES % (AUTO) 15.9 % (20.0-44.0); MEAN CORPUSCULAR HGB CONC 33 g/dl (31.0-36.0); MEAN CORPUSCULAR VOLUME 90 fL (82-100); MONOCYTES # (AUTO) 0.6 K/uL (0.1-1.30); MONOCYTES % (AUTO) 9.2 % (2.0-12.0); NEUTROPHILS # (AUTO) 4.5 K/uL (1.8-8.9); NEUTROPHILS % (AUTO) 67.6 % (43.0-81.0); PLATELET COUNT (AUTO) 398 K/uL (150-450); RED BLOOD CELL COUNT(AUTO) 2.92 MIL/uL (4.0-5.2); WHITE BLOOD COUNT (AUTO) 6.6 K/uL (4.3-11.0)
[2021-11-08 07:55] LABS: CALCIUM, SERUM 8.2 mg/dL (8.5-10.1); CREATININE 3.4 mg/dL (0.6-1.3); MAGNESIUM 2.2 mg/dL (1.8-2.4); PHOSPHORUS 3.4 mg/dL (2.5-4.9); POTASSIUM 4.7 mmol/L (3.5-5.1)
[2021-11-08 08:00] VITALS: BP 149/65
[2021-11-08] MEDS: SEVELAMER CARBONATE 800 MG TABLET PO SCH ×3 (08:00→17:34)
[2021-11-08] MEDS: DOCUSATE SODIUM 100 MG CAPSULE PO SCH ×2 (11:41→17:34)
[2021-11-08] MEDS: ASPIRIN EC 81 MG TABLET.DR PO SCH (11:41)
[2021-11-08] MEDS: GABAPENTIN 100 MG CAPSULE PO SCH (11:41)
[2021-11-08] MEDS: BENAZEPRIL HCL 10 MG TABLET PO SCH (11:41)
[2021-11-08] MEDS: PANTOPRAZOLE 40 MG TABLET.DR PO SCH (11:42)
[2021-11-08] MEDS: VIT B CMPLX 3/FA/VIT C/BIOTIN 1 TAB TABLET PO SCH (11:42)
[2021-11-08] MEDS: LEVOTHYROXINE SODIUM 75 MCG TABLET PO SCH (11:51)
[2021-11-08] MEDS: DAKINS HALF STRENGTH (0.25%) 480 ML BOTTLE TOP SCH (13:43)
[2021-11-08] MEDS: BISACODYL (5 MG) 5 MG TABLET.DR PO PRN (14:26)
[2021-11-08 16:00] VITALS: BP 155/66
--- NOTE | 2021-11-08 18:00 | NUR ---
DR. STEEN IN AND SPOKE TO RN TO HOLD OFF ON PICC LINE,UNTIL WD CULTURE BACK AND IF POSITIVE TO DO PICC LINE.STATES PT. WILL NEED BKA.
[2021-11-08 20:00] VITALS: BP 167/70
[2021-11-08] MEDS: ENOXAPARIN SODIUM 30 MG/0.3 ML DISP.SYRIN SQ SCH (21:21)
[2021-11-08] MEDS: ATORVASTATIN 40 MG TABLET PO SCH (21:22)
[2021-11-08] MEDS: LATANOPROST EYE DROP 0.005% 2.5 ML BOTTLE RIGHTEYE SCH (21:22)
--- NOTE | 2021-11-09 01:07 | NUR ---
MS/TELE/RN PATIENT IS SLEEPING AT THIS TIME, APPEARS COMFORTABLE, NO SIGNS OF DISTRESS NOTED, CALL LIGHT IN REACH, WILL MONITOR.
[2021-11-09] MEDS: PIPERACILLIN /TAZOBACTAM 2.25 G in IV D5W 50 ML IV SCH ×3 (04:43→21:45)
[2021-11-09] MEDS: IV NS 0.9% 1,000 ML IV SCH ×2 (06:26→11:42)
[2021-11-09] MEDS: BLOOD SUGAR DIAGNOSTIC 1 EACH STRIP IN SCH ×4 (06:34→21:45)
[2021-11-09] MEDS: LEVOTHYROXINE SODIUM 75 MCG TABLET PO SCH (06:34)
--- NOTE | 2021-11-09 06:39 | NUR ---
MS/TELE/RN PATIENT IS AWAKE, COMFORTABLE, NO DISTRESS NOTED, NO S/S OF HYPOGLYCEMIA, ALL NEEDS ATTENDED AT THIS TIME, WILL CONTINUE TO MONITOR.
[2021-11-09 06:45] LABS: BASOPHILS # (AUTO) 0.1 K/uL (0.0-0.2); BASOPHILS % (AUTO) 2.3 % (0.0-2.0); EOSINOPHILS % (AUTO) 6.9 % (0.0-6.0); HEMATOCRIT 25 % (33-45); HEMOGLOBIN 8.2 g/dL (11.5-14.8); LYMPHOCYTES # (AUTO) 1.2 K/uL (0.8-4.8); LYMPHOCYTES % (AUTO) 18.3 % (20.0-44.0); MEAN CORPUSCULAR HGB CONC 32 g/dl (31.0-36.0); MEAN CORPUSCULAR VOLUME 90 fL (82-100); MONOCYTES # (AUTO) 0.6 K/uL (0.1-1.30); MONOCYTES % (AUTO) 9.6 % (2.0-12.0); NEUTROPHILS % (AUTO) 62.9 % (43.0-81.0); PLATELET COUNT (AUTO) 370 K/uL (150-450); RED BLOOD CELL COUNT(AUTO) 2.82 MIL/uL (4.0-5.2); WHITE BLOOD COUNT (AUTO) 6.4 K/uL (4.3-11.0)
[2021-11-09 06:57] LABS: CALCIUM, SERUM 7.7 mg/dL (8.5-10.1); PHOSPHORUS 4.3 mg/dL (2.5-4.9); POTASSIUM 4.9 mmol/L (3.5-5.1)
--- NOTE | 2021-11-09 07:40 | NUR ---
MS/RN OPENING NOTES RECEIVED PATIENT IN BED, A/O X3, ABLE TO MAKE NEEDS KNOWN. STABLE ON ROOM AIR. NO DISTRESS NOTED AT THIS TIME. IV ACCESS ON RIGHT UPPER ARM MIDLINE IS INTACT WITH A RUNNING NS @ 125ML/HR. WITH LEFT UPPER ARM AV FISTULA INTACT. SAFETY MEASURES IN PLACED: BED LOCKED ON LOWEST POSITION, SIDE RAILS UP X2, CALL LIGHT WITHIN REACH. WILL CONTINUE WITH THE PLAN OF CARE.
[2021-11-09 08:00] VITALS: BP 158/67
[2021-11-09] MEDS: ASPIRIN EC 81 MG TABLET.DR PO SCH (08:25)
[2021-11-09] MEDS: PANTOPRAZOLE 40 MG TABLET.DR PO SCH (08:25)
[2021-11-09] MEDS: GABAPENTIN 100 MG CAPSULE PO SCH (08:25)
[2021-11-09] MEDS: DOCUSATE SODIUM 100 MG CAPSULE PO SCH ×2 (08:25→17:27)
[2021-11-09] MEDS: SEVELAMER CARBONATE 800 MG TABLET PO SCH ×3 (08:25→17:27)
[2021-11-09] MEDS: VIT B CMPLX 3/FA/VIT C/BIOTIN 1 TAB TABLET PO SCH (08:25)
[2021-11-09] MEDS: DAKINS HALF STRENGTH (0.25%) 480 ML BOTTLE TOP SCH (08:26)
[2021-11-09] MEDS: BENAZEPRIL HCL 10 MG TABLET PO SCH (08:26)
--- NOTE | 2021-11-09 11:58 | NUR ---
ACCUCHECK BS IS 147 WITH 2 UNITS REGULAR INSULIN COVERAGE, PATIENT REFUSED INSULIN COVERAGE. EXPLAINED RISK, PATIENT STILL REFUSED. WILL MONITOR.
--- NOTE | 2021-11-09 15:52 | NUR ---
Family Meeting: Per Candelaria SORIANO's request AIDA completed call with ASSEMBLIES AND INSTALLATIONS INSPECTOR & patient's son, Krishna [place] [phone] at patient's bedside. SW available to translate in Guatemalan to ensure that patient is understanding. Candelaria SORIANO informed Krishna that based on her and the rest of the medical team;s review of this case, the pt. 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 Candelaria explained risks and benefits, and that alternative antibiotic treatment that has been unsuccessful. Krishna expressed understanding and stated he would like to tell patient himself and then speak to SW and ASSEMBLIES AND INSTALLATIONS INSPECTOR to address any questions the pt. or family may have and relay the patient/family's decision. Candelaria addressed family's questions. AIDA will follow up with pt. and family around 4-4:30pm. Addendum: 11/09/21 at 1649 by JOVITA PARRA AIDA called patient's son, Krishna [place] [phone] and he stated that the heand the pt. are agreeable to procedd witht he amputation. AIDA notified Candelaria SORIANO.
[2021-11-09 16:00] VITALS: BP 155/56
[2021-11-09] MEDS: IV NS 0.9% 1,000 ML IV PRN (17:38)
--- NOTE | 2021-11-09 18:30 | NUR ---
PATIENT WILL HAVE ABOVE THE KNEE RIGHT SURGERY WITH DR. MENON TOMORROW. SON GIACOMO SIGNED ALL CONSENTS. DR FLORES ORDERED IV NS TO DECREASE IT DOWN TO 75 ML/HR.
--- NOTE | 2021-11-09 19:23 | NUR ---
MS/RN CLOSING NOTES PATIENT IN BED, A/O X3, ABLE TO MAKE NEEDS KNOWN. STABLE ON ROOM AIR. NO DISTRESS NOTED AT THIS TIME. IV ACCESS ON RIGHT UPPER ARM MIDLINE IS INTACT WITH A RUNNING NS NOW AT 75ML/HR. WITH LEFT UPPER ARM AV FISTULA INTACT. ALL NEEDS MET. KEPT PATIENT COMFORTABLE ALL THROUGHOUT THE SHIFT. SAFETY MEASURES IN PLACED: BED LOCKED ON LOWEST POSITION, SIDE RAILS UP X2, CALL LIGHT WITHIN REACH. WILL ENDORSE TO THE NEXT SHIFT FOR ENEDINA.
--- NOTE | 2021-11-09 19:50 | NUR ---
MS RN OPENING NOTE PATIENT IS RECEIVED AWAKE IN BED W/ FAMILY IN ROOM. A/OX4. NO S/S OF DISTRESS, BREATHING UNLABORED ON RM AIR. RUDY MIDLINE INTACT AND PATENT W/ NS 75ML/HR. SAFETY MEASURES IN PLACE: BED AT LOWEST POSITION, RAILS UP X3, CALL ROMERO WITHIN REACH. WILL CONTINUE TO MONITOR PATIENT.
[2021-11-09 20:00] VITALS: BP 151/83
[2021-11-09] MEDS: ENOXAPARIN SODIUM 30 MG/0.3 ML DISP.SYRIN SQ SCH (21:44)
[2021-11-09] MEDS: LATANOPROST EYE DROP 0.005% 2.5 ML BOTTLE RIGHTEYE SCH (21:44)
[2021-11-09] MEDS: ATORVASTATIN 40 MG TABLET PO SCH (21:45)
--- NOTE | 2021-11-09 22:25 | NUR ---
RN NOTE PATIENT HAS NOT BEEN CLEARED FOR SURGERY ALTHOUGH SHE HAS AN ORDER FOR IT. DR. DODSON STILL NEEDS TO CLEAR HER. ALL MEDS GIVEN PER MD ORDER SCHEDULED. PATIENT IS NOT NPO AT THIS TIME DUE TO NO SURGERY SCHEDULED. PATIENT'S SON WAS NOTIFIED VIA DIRECT PHONE CALL CONVERSATION (LUIS, ) HE WANTED TO KNOW THE CURRENT STATUS OF THE SURGERY TIME. PATIENT STABLE; WILL CONTINUE TO MONITOR PATIENT.
[2021-11-09] MEDS: *INSULIN REGULAR(HUMULIN R)HUM 100 UNIT/ML VIAL SQ PRN (22:29)
[2021-11-10] MEDS: PIPERACILLIN /TAZOBACTAM 2.25 G in IV D5W 50 ML IV SCH (04:47)
[2021-11-10] MEDS: IV NS 0.9% 1,000 ML IV PRN ×2 (06:16→18:23)
[2021-11-10 06:45] LABS: BASOPHILS # (AUTO) 0.1 K/uL (0.0-0.2); BASOPHILS % (AUTO) 1.3 % (0.0-2.0); EOSINOPHILS % (AUTO) 6.6 % (0.0-6.0); HEMATOCRIT 26 % (33-45); HEMOGLOBIN 8.4 g/dL (11.5-14.8); LYMPHOCYTES # (AUTO) 1.2 K/uL (0.8-4.8); LYMPHOCYTES % (AUTO) 16.3 % (20.0-44.0); MEAN CORPUSCULAR HGB CONC 33 g/dl (31.0-36.0); MEAN CORPUSCULAR VOLUME 91 fL (82-100); MONOCYTES # (AUTO) 0.6 K/uL (0.1-1.30); MONOCYTES % (AUTO) 7.3 % (2.0-12.0); NEUTROPHILS # (AUTO) 5.2 K/uL (1.8-8.9); NEUTROPHILS % (AUTO) 68.5 % (43.0-81.0); PLATELET COUNT (AUTO) 307 K/uL (150-450); RED BLOOD CELL COUNT(AUTO) 2.84 MIL/uL (4.0-5.2); WHITE BLOOD COUNT (AUTO) 7.6 K/uL (4.3-11.0)
--- NOTE | 2021-11-10 06:55 | NUR ---
MS RN CLOSING NOTE PATIENT ASLEEP IN BED. A/OX3-4. NO S/S OF DISTRESS, BREATHING UNLABORED ON RM AIR. RUDY MIDLINE INTACT AND PATENT W/ NS 75ML/HR. SAFETY MEASURES IN PLACE: BED AT LOWEST POSITION, RAILS UP X3, CALL ROMERO WITHIN REACH. WILL ENDORSE TO NEXT SHIFT FOR ENEDINA.
[2021-11-10] MEDS: BLOOD SUGAR DIAGNOSTIC 1 EACH STRIP IN SCH ×4 (07:44→22:15)
[2021-11-10] MEDS: LEVOTHYROXINE SODIUM 75 MCG TABLET PO SCH (07:44)
[2021-11-10] MEDS: SEVELAMER CARBONATE 800 MG TABLET PO SCH ×3 (07:45→17:33)
--- NOTE | 2021-11-10 07:45 | NUR ---
MS/RN OPENING NOTES RECEIVED PATIENT IN BED, A/O X3, ABLE TO MAKE NEEDS KNOWN. STABLE ON ROOM AIR. NO DISTRESS NOTED AT THIS TIME. IV ACCESS ON RIGHT UPPER ARM MIDLINE IS INTACT WITH A RUNNING NS AT 75ML/HR. WITH LEFT UPPER ARM AV FISTULA INTACT. SAFETY MEASURES IN PLACED: BED LOCKED ON LOWEST POSITION, SIDE RAILS UP X2, CALL LIGHT WITHIN REACH. WILL CONTINUE WITH THE PLAN OF CARE.
[2021-11-10] MEDS: VIT B CMPLX 3/FA/VIT C/BIOTIN 1 TAB TABLET PO SCH (08:04)
[2021-11-10] MEDS: PANTOPRAZOLE 40 MG TABLET.DR PO SCH (08:04)
[2021-11-10] MEDS: DOCUSATE SODIUM 100 MG CAPSULE PO SCH ×2 (08:04→17:33)
[2021-11-10] MEDS: BENAZEPRIL HCL 10 MG TABLET PO SCH ×2 (08:04→10:36)
[2021-11-10] MEDS: ASPIRIN EC 81 MG TABLET.DR PO SCH (08:04)
[2021-11-10] MEDS: DAKINS HALF STRENGTH (0.25%) 480 ML BOTTLE TOP SCH (08:04)
[2021-11-10] MEDS: GABAPENTIN 100 MG CAPSULE PO SCH (08:04)
--- NOTE | 2021-11-10 08:05 | NUR ---
WITHHELD BP MEDICATION LOTENSIN DUE TO PATIENT SCHEDULED TO DO HEMODIALYSIS TODAY. WILL MONITOR. Addendum: 11/10/21 at 1036 by SALVADOR OSUNA RN meds given
[2021-11-10 08:12] LABS: CREATININE 4.5 mg/dL (0.6-1.3); MAGNESIUM 2.1 mg/dL (1.8-2.4); PHOSPHORUS 4.5 mg/dL (2.5-4.9); POTASSIUM 5.4 mmol/L (3.5-5.1)
[2021-11-10 08:19] VITALS: BP 158/67
--- NOTE | 2021-11-10 12:30 | NUR ---
HEMODIALYSIS DONE TODAY. 2 LITERS OUT. PATIENT IS COMFORTABLE AT THIS TIME.
[2021-11-10] MEDS: BISACODYL (5 MG) 5 MG TABLET.DR PO PRN (13:20)
--- NOTE | 2021-11-10 14:00 | NUR ---
[facility] NOTIFIED THAT PATIENT'S RIGHT FOOT WOUND TESTED POSITIVE FOR MRSA. TREASURE STEEN NP NOTIFIED AND ACKNOWLEDGED.
[2021-11-10] MEDS: METOPROLOL TARTRATE INJ 5 MG/5 ML AMPUL IVP PRN ×2 (15:40→15:45)
[2021-11-10] MEDS ORDERED: METOPROLOL TARTRATE INJ 5 MG/5 ML AMPUL ONE (15:41)
[2021-11-10] MEDS ORDERED: IOHEXOL-350 100 ML VIAL IV ONE (15:42)
[2021-11-10] MEDS ORDERED: NITROGLYCERIN 0.4 MG/TAB BOTTLE ONE (15:43)
[2021-11-10] MEDS ORDERED: NITROGLYCERIN 0.4 MG/TAB BOTTLE SL PRN (16:00)
--- NOTE | 2021-11-10 16:08 | NUR ---
PATIENT CAME BACK FROM CT ANGIOGRAM HEART WITH CONTRAST. HEMODIALYSIS IS SCHEDULED FOR TOMORROW MORNING.
[2021-11-10 16:09] VITALS: BP 131/59
[2021-11-10] MEDS: INSULIN REGULAR, HUMAN 100 UNIT/ML 3 ML VIAL SQ PRN (17:36)
--- NOTE | 2021-11-10 19:19 | NUR ---
MS/RN CLOSING NOTES PATIENT IN BED, A/O X3, ABLE TO MAKE NEEDS KNOWN. STABLE ON ROOM AIR. NO DISTRESS NOTED AT THIS TIME. IV ACCESS ON RIGHT UPPER ARM MIDLINE IS INTACT WITH A RUNNING NS AT 75ML/HR. WITH LEFT UPPER ARM AV FISTULA INTACT. KEPT PATIENT COMFORTABLE ALL THROUGHOUT THE SHIFT. SAFETY MEASURES IN PLACED: BED LOCKED ON LOWEST POSITION, SIDE RAILS UP X2, CALL LIGHT WITHIN REACH. WILL ENDORSE TO THE NEXT SHIFT FOR ENEDINA.
--- NOTE | 2021-11-10 19:19 | NUR ---
MS RN OPENING NOTE PATIENT AWAKE IN BED ON HER PHONE W/ FAMILY. A/OX3. NO S/S OF DISTRESS; BREATHING UNLABORED ON RM AIR. RUDY MIDLINE INTACT AND PATENT W/ 75ML/HR. SAFETY MEASURES IN PLACE: BED AT LOWEST POSITION, RAILS UP X3, CALL ROMERO WITHIN REACH. WILL CONTINUE TO MONITOR PATIENT.
[2021-11-10 20:00] VITALS: BP 146/64
[2021-11-10] MEDS: LATANOPROST EYE DROP 0.005% 2.5 ML BOTTLE RIGHTEYE SCH (21:22)
[2021-11-10] MEDS: ATORVASTATIN 40 MG TABLET PO SCH (21:22)
[2021-11-10] MEDS: ENOXAPARIN SODIUM 30 MG/0.3 ML DISP.SYRIN SQ SCH (21:24)
[2021-11-10] MEDS: *INSULIN REGULAR(HUMULIN R)HUM 100 UNIT/ML VIAL SQ PRN (22:15)
[2021-11-11] MEDS: IV NS 0.9% 1,000 ML IV PRN (05:56)
[2021-11-11] MEDS: INSULIN REGULAR, HUMAN 100 UNIT/ML 3 ML VIAL SQ PRN ×3 (06:31→16:45)
[2021-11-11] MEDS: BLOOD SUGAR DIAGNOSTIC 1 EACH STRIP IN SCH ×4 (06:31→21:10)
--- NOTE | 2021-11-11 06:47 | NUR ---
MS RN CLOSING NOTES PATIENT IS AWAKE IN BED. A/OX 3. NO S/S OF DISTRESS, BREATHING UNLABORED ON RM AIR. RUDY MIDLINE INTACT AND PATENT NS @ 75ML/HR. SAFETY MEASURES IN PLACE: BED AT LOWEST POSITION, RAILS UP X3, CALL ROMERO WITHIN REACH. WILL ENDORSE TO NEXT SHIFT FOR ENEDINA.
--- NOTE | 2021-11-11 07:23 | NUR ---
RN OPENING NOTES RECEIVED PATIENT IN BED AWAKE, A/O X4, VERBALLY RESPONSIVE. NO SIGNS OF ACUTE DISTRESS NOTED. ON ROOM AIR, NO SOB NOTED. SATURATION @96%. BREATHING EVEN AND UNLABORED. WITH IV ACCESS ON RIGHT UPPER ARM MIDLINE, INTACT AND PATENT, WITH IVF OF NS @75 ML/HR INFUSING WELL. AV FISTULA ON MARY, (+) BRUITS AND THRILLS, NO BLEEDING NOTED. SAFETY MEASURES IN PLACE. BED IN LOWEST AND LOCKED POSITION, SR UP X2, CALL LIGHT PLACED WITHIN EASY REACH. WILL CONTINUE TO MONITOR.
[2021-11-11 07:26] LABS: BASOPHILS # (AUTO) 0.1 K/uL (0.0-0.2); BASOPHILS % (AUTO) 1.2 % (0.0-2.0); HEMATOCRIT 26 % (33-45); HEMOGLOBIN 8.5 g/dL (11.5-14.8); LYMPHOCYTES # (AUTO) 1.1 K/uL (0.8-4.8); LYMPHOCYTES % (AUTO) 14.7 % (20.0-44.0); MEAN CORPUSCULAR HGB CONC 33 g/dl (31.0-36.0); MEAN CORPUSCULAR VOLUME 90 fL (82-100); MONOCYTES # (AUTO) 0.6 K/uL (0.1-1.30); MONOCYTES % (AUTO) 8.4 % (2.0-12.0); NEUTROPHILS # (AUTO) 5.3 K/uL (1.8-8.9); NEUTROPHILS % (AUTO) 69.7 % (43.0-81.0); PLATELET COUNT (AUTO) 351 K/uL (150-450); RED BLOOD CELL COUNT(AUTO) 2.85 MIL/uL (4.0-5.2); WHITE BLOOD COUNT (AUTO) 7.6 K/uL (4.3-11.0)
[2021-11-11] MEDS: LEVOTHYROXINE SODIUM 75 MCG TABLET PO SCH (07:52)
[2021-11-11] MEDS: SEVELAMER CARBONATE 800 MG TABLET PO SCH ×3 (07:52→17:02)
[2021-11-11 07:57] LABS: CALCIUM, SERUM 7.9 mg/dL (8.5-10.1); CREATININE 3.3 mg/dL (0.6-1.3); MAGNESIUM 2.2 mg/dL (1.8-2.4); PHOSPHORUS 3.1 mg/dL (2.5-4.9); POTASSIUM 4.6 mmol/L (3.5-5.1)
[2021-11-11 08:00] VITALS: BP 170/80
[2021-11-11] MEDS: VIT B CMPLX 3/FA/VIT C/BIOTIN 1 TAB TABLET PO SCH (08:40)
[2021-11-11] MEDS: PANTOPRAZOLE 40 MG TABLET.DR PO SCH (08:40)
[2021-11-11] MEDS: ASPIRIN EC 81 MG TABLET.DR PO SCH (08:40)
[2021-11-11] MEDS: GABAPENTIN 100 MG CAPSULE PO SCH (08:40)
[2021-11-11] MEDS: DOCUSATE SODIUM 100 MG CAPSULE PO SCH ×2 (08:40→16:46)
[2021-11-11] MEDS: BENAZEPRIL HCL 10 MG TABLET PO SCH (08:42)
[2021-11-11] MEDS: DAKINS HALF STRENGTH (0.25%) 480 ML BOTTLE TOP SCH (08:46)
--- NOTE | 2021-11-11 09:20 | NUR ---
RN NOTES HD STARTED BY PRAVEEN DARBY NURSE.
--- NOTE | 2021-11-11 11:20 | NUR ---
RN NOTES HD FINISHED. PROCEDURE TOLERATED WELL.
[2021-11-11] MEDS ORDERED: VANCOMYCIN 1 GM in IV D5W 250ml IV ONE (13:00)
[2021-11-11 16:00] VITALS: BP 170/72
[2021-11-11] MEDS: BISACODYL (5 MG) 5 MG TABLET.DR PO PRN (16:10)
[2021-11-11] MEDS: hydrALAZINE HCL IV 20 MG VIAL IV PRN (16:10)
--- NOTE | 2021-11-11 18:51 | NUR ---
RN CLOSING NOTES PATIENT IN BED AWAKE, VERBALLY RESPONSIVE. NO SIGNS OF ACUTE DISTRESS NOTED. REMAINS ON ROOM AIR, NO SOB NOTED. SATURATION @98%. BREATHING EVEN AND UNLABORED. WITH IV ACCESS ON RIGHT UPPER ARM MIDLINE, INTACT AND PATENT, SALINE LOCKED. AV FISTULA ON MARY, (+) BRUITS AND THRILLS, NO BLEEDING NOTED. HD DONE TODAY, 2 LITERS OF FLUID REMOVED. ALL DUE MEDS GIVEN, TAKEN WELL. SAFETY MEASURES MAINTAINED. BED IN LOWEST AND LOCKED POSITION, SR UP X2, CALL LIGHT PLACED WITHIN EASY REACH. WILL ENDORSE TO NEXT SHIFT FOR ENEDINA.
--- NOTE | 2021-11-11 19:20 | NUR ---
RN NOTE PT RESTING IN BED, EASILY AROUSABLE TO STIMULI, A/OX3, ABLE TO MAKE NEEDS KNOWN. SHE DENIES ANY PAIN AT THIS TIME. RESPIRATIONS EVEN/UNLABORED, ON ROOM AIR. IV SITE RUDY ML INTACT/PATENT/FLUSHES WELL. MARY AV SHUNT WITH GOOD BRUIT/THRILL. R-FT WOUND WITH DRESSING C/D/I. PT IN NO ACUTE DISTRESS. SAFETY MEASURES IN PLACE. WILL CONT TO MONITOR.
[2021-11-11 20:00] VITALS: BP 139/59
[2021-11-11] MEDS: ATORVASTATIN 40 MG TABLET PO SCH (21:20)
[2021-11-11] MEDS: LATANOPROST EYE DROP 0.005% 2.5 ML BOTTLE RIGHTEYE SCH (21:21)
[2021-11-11] MEDS: ENOXAPARIN SODIUM 30 MG/0.3 ML DISP.SYRIN SQ SCH (23:02)
[2021-11-12 06:13] LABS: BASOPHILS # (AUTO) 0.1 K/uL (0.0-0.2); BASOPHILS % (AUTO) 1.2 % (0.0-2.0); EOSINOPHILS % (AUTO) 5.5 % (0.0-6.0); HEMATOCRIT 25 % (33-45); HEMOGLOBIN 8.2 g/dL (11.5-14.8); LYMPHOCYTES # (AUTO) 1.3 K/uL (0.8-4.8); LYMPHOCYTES % (AUTO) 16.3 % (20.0-44.0); MEAN CORPUSCULAR HGB CONC 33 g/dl (31.0-36.0); MEAN CORPUSCULAR VOLUME 90 fL (82-100); MONOCYTES # (AUTO) 0.7 K/uL (0.1-1.30); MONOCYTES % (AUTO) 8.7 % (2.0-12.0); NEUTROPHILS # (AUTO) 5.4 K/uL (1.8-8.9); NEUTROPHILS % (AUTO) 68.3 % (43.0-81.0); PLATELET COUNT (AUTO) 340 K/uL (150-450); RED BLOOD CELL COUNT(AUTO) 2.74 MIL/uL (4.0-5.2); WHITE BLOOD COUNT (AUTO) 7.9 K/uL (4.3-11.0)
[2021-11-12] MEDS: BLOOD SUGAR DIAGNOSTIC 1 EACH STRIP IN SCH ×4 (06:28→21:38)
[2021-11-12 06:39] LABS: CALCIUM, SERUM 7.7 mg/dL (8.5-10.1); PHOSPHORUS 2.5 mg/dL (2.5-4.9); POTASSIUM 4.5 mmol/L (3.5-5.1)
--- NOTE | 2021-11-12 06:45 | NUR ---
RN NOTE PT RESTING IN BED, EASILY AROUSABLE, ALERT/ORIENTED. NO C/O PAIN OR DISCOMFORT. NO RESPIRATORY DISTRESS. IV SITE RUDY ML INTACT/PATENT. MRAY AV FISTULA WITH GOOD BRUIT/THRILL. PT IN NO ACUTE DISTRESS. SAFETY MEASURES MAINTAINED. ALL NEEDS ATTENDED TO.
[2021-11-12] MEDS: LEVOTHYROXINE SODIUM 75 MCG TABLET PO SCH (06:48)
--- NOTE | 2021-11-12 07:30 | NUR ---
RN OPENING NOTES RECEIVED PATIENT IN BED AWAKE, A/O TIMES 3 .VERBALLY RESPONSIVE . KNOWS LITTLE LATVIAN, DOMINICAN SPEAKER. ABLE TO MAKE NEEDS KNOWN. NO SIGNS OF ACUTE DISTRESS NOTED. ON ROOM AIR, NO SOB NOTED. SATURATION @97%. BREATHING EVEN AND UNLABORED. IV ACCESS ON RIGHT UPPER ARM MIDLINE, INTACT AND PATENT, SALINE LOCKED. AV FISTULA ON MARY, (+) BRUITS AND THRILLS, NO BLEEDING NOTED. SAFETY MEASURES MAINTAINED. BED IN LOWEST AND LOCKED POSITION, SR UP X2, CALL LIGHT AND TABLE IN REACH REACH. WILL CONTINUE TO MONITOR.
[2021-11-12] MEDS: SEVELAMER CARBONATE 800 MG TABLET PO SCH ×3 (07:57→17:17)
[2021-11-12] MEDS: DOCUSATE SODIUM 100 MG CAPSULE PO SCH ×2 (08:37→17:17)
[2021-11-12] MEDS: VIT B CMPLX 3/FA/VIT C/BIOTIN 1 TAB TABLET PO SCH (08:37)
[2021-11-12] MEDS: ASPIRIN EC 81 MG TABLET.DR PO SCH (08:37)
[2021-11-12] MEDS: PANTOPRAZOLE 40 MG TABLET.DR PO SCH (08:38)
[2021-11-12] MEDS: GABAPENTIN 100 MG CAPSULE PO SCH (08:38)
[2021-11-12] MEDS: BENAZEPRIL HCL 10 MG TABLET PO SCH (08:38)
[2021-11-12] MEDS: DAKINS HALF STRENGTH (0.25%) 480 ML BOTTLE TOP SCH (09:14)
[2021-11-12] MEDS: INSULIN REGULAR, HUMAN 100 UNIT/ML 3 ML VIAL SQ PRN (11:20)
[2021-11-12] MEDS: BISACODYL (5 MG) 5 MG TABLET.DR PO PRN (13:12)
--- NOTE | 2021-11-12 18:42 | NUR ---
RN CLOSING NOTES PATIENT IN BED AWAKE, A/O TIMES 3 .VERBALLY RESPONSIVE . KNOWS LITTLE ROMANIAN, ESTONIAN SPEAKER. ABLE TO MAKE NEEDS KNOWN. NO SIGNS OF ACUTE DISTRESS NOTED. ON ROOM AIR, NO SOB NOTED. SATURATION @98%. BREATHING EVEN AND UNLABORED. IV ACCESS ON RIGHT UPPER ARM MIDLINE, INTACT AND PATENT, SALINE LOCKED. AV FISTULA ON MARY, (+) BRUITS AND THRILLS, NO BLEEDING NOTED. SAFETY MEASURES MAINTAINED. ALL DUE MEDS GIVEN ORDERED.BED IN LOWEST AND LOCKED POSITION, SR UP X2, CALL LIGHT AND TABLE IN REACH REACH. WILL ENDORSE FOR ENEDINA.
--- NOTE | 2021-11-12 19:20 | NUR ---
RN NOTE PT AWAKE IN BED, A/OX3, ABLE TO MAKE NEEDS KNOWN. SHE DENIES ANY PAIN AT THIS TIME. RESPIRATIONS EVEN/UNLABORED. IV SITE: RUDY ML INTACT/PATENT/FLUSHES WELL. MARY AV FISTULA WITH GOOD BRUIT/THRILL. R-FT WOUND DRESSING C/D/I. PER PLAN FOR R-BKA TENTATIVE FOR SATURDAY THIS WEEK. PT IN NO ACUTE DISTRESS. SAFETY MEASURES IN PLACE. WILL CONT TO MONITOR.
[2021-11-12 20:10] VITALS: BP 146/71
[2021-11-12] MEDS: ENOXAPARIN SODIUM 30 MG/0.3 ML DISP.SYRIN SQ SCH (20:19)
[2021-11-12] MEDS: LATANOPROST EYE DROP 0.005% 2.5 ML BOTTLE RIGHTEYE SCH (21:35)
[2021-11-12] MEDS: ATORVASTATIN 40 MG TABLET PO SCH (21:35)
[2021-11-13] VITALS (8 sets, daily range): BP systolic 146–165; BP diastolic 55–81
[2021-11-13] MEDS: BLOOD SUGAR DIAGNOSTIC 1 EACH STRIP IN SCH ×4 (06:04→22:00)
--- NOTE | 2021-11-13 07:10 | NUR ---
RN NOTE PT RESTING IN BED, EASILY AROUSABLE TO STIMULI. SHE DENIES ANY PAIN AT THIS TIME. NO SIGNIFICANT CHANGE OF CONDITION DURING THE SHIFT. PT SLEPT WELL DURING THE NIGHT. ALL NEEDS ATTENDED TO. SAFETY MEASURES MAINTAINED.
--- NOTE | 2021-11-13 07:23 | NUR ---
MS RN OPENING NOTES RECEIVED PATIENT AWAKE IN BED IN NO ACUTE SIGN SOF DISTRESS. A/O X3. SPEAKS BAHAMIAN AND KNOWS LITTLE VIETNAMESE, DENIES PAIN OR DISCOMFORTS AT THIS TIME. ON ROOM BREATHING EVEN AND UNLABORED. RUDY MIDLINE G#18 INTACT AND PATENT. PT WITH AV FISTULA ON MARY WITH (+) BRUITS AND THRILLS, NO BLEEDING NOTED. SAFETY MEASURES IN PLACED: BED IN LOWEST LOCKED POSITION, SR UP X2, CALL LIGHT AND TRAY TABLE IN REACH. WILL CONTINUE TO MONITOR PT ACCORDINGLY.
[2021-11-13 07:41] LABS: BASOPHILS # (AUTO) 0.1 K/uL (0.0-0.2); BASOPHILS % (AUTO) 2.2 % (0.0-2.0); EOSINOPHILS % (AUTO) 7.3 % (0.0-6.0); HEMATOCRIT 24 % (33-45); HEMOGLOBIN 7.9 g/dL (11.5-14.8); LYMPHOCYTES # (AUTO) 1.3 K/uL (0.8-4.8); LYMPHOCYTES % (AUTO) 20.8 % (20.0-44.0); MEAN CORPUSCULAR HGB CONC 33 g/dl (31.0-36.0); MEAN CORPUSCULAR VOLUME 91 fL (82-100); MONOCYTES # (AUTO) 0.5 K/uL (0.1-1.30); MONOCYTES % (AUTO) 8.1 % (2.0-12.0); NEUTROPHILS # (AUTO) 3.8 K/uL (1.8-8.9); NEUTROPHILS % (AUTO) 61.6 % (43.0-81.0); PLATELET COUNT (AUTO) 346 K/uL (150-450); RED BLOOD CELL COUNT(AUTO) 2.66 MIL/uL (4.0-5.2); WHITE BLOOD COUNT (AUTO) 6.1 K/uL (4.3-11.0)
[2021-11-13] MEDS: LEVOTHYROXINE SODIUM 75 MCG TABLET PO SCH (07:45)
[2021-11-13] MEDS: GABAPENTIN 100 MG CAPSULE PO SCH (08:54)
[2021-11-13] MEDS: DOCUSATE SODIUM 100 MG CAPSULE PO SCH ×2 (08:54→16:52)
[2021-11-13] MEDS: PANTOPRAZOLE 40 MG TABLET.DR PO SCH (08:54)
[2021-11-13] MEDS: VIT B CMPLX 3/FA/VIT C/BIOTIN 1 TAB TABLET PO SCH (08:54)
[2021-11-13] MEDS: SEVELAMER CARBONATE 800 MG TABLET PO SCH ×3 (08:54→17:17)
[2021-11-13] MEDS: ASPIRIN EC 81 MG TABLET.DR PO SCH (08:54)
[2021-11-13] MEDS: BENAZEPRIL HCL 10 MG TABLET PO SCH (08:58)
[2021-11-13] MEDS: DAKINS HALF STRENGTH (0.25%) 480 ML BOTTLE TOP SCH (09:05)
[2021-11-13] MEDS: INSULIN REGULAR, HUMAN 100 UNIT/ML 3 ML VIAL SQ PRN ×2 (11:31→16:54)
--- NOTE | 2021-11-13 11:32 | NUR ---
RN NOTES SCRUB WHEEL OPERATOR JUST DRAWN BLOOD FOR TYPE AND SCREEN
[2021-11-13] MEDS: BISACODYL (5 MG) 5 MG TABLET.DR PO PRN (11:38)
[2021-11-13 12:01] LABS: CREATININE 3.9 mg/dL (0.6-1.3); MAGNESIUM 2.1 mg/dL (1.8-2.4); PHOSPHORUS 3.2 mg/dL (2.5-4.9)
--- NOTE | 2021-11-13 15:24 | NUR ---
RN NOTES HEMODIALYSIS COMPLETED WITH 2L OUT. HD NURSE PLACED DRY PRESSURE DRESSING ON MARY AV FISTULA, NO ACTIVE BLEEDING NOTED. S/P HD V/S: BP 175/76, P 85, R 18 AND T 97.5F. WILL CONTINUE TO MONITOR.
--- NOTE | 2021-11-13 16:03 | NUR ---
RN NOTES BLOOD TRANSFUSION OF PRBC X1 UNIT ( 292 ML) STARTED TO RUDY MIDLINE PER MD ORDER. WILL MONITOR FOR ANY ALLERGIC/ADVERSE REACTIONS.
--- NOTE | 2021-11-13 16:18 | NUR ---
RN NOTES AFTER 15 MINS OF STARTING BLOOD TRANSFUSION NO ALLERGIC/ADVERSE REACTIONS NOTED; NO FEVER, NO RASHES, NO SOB, ETC. WILL CONTINUE TO MONITOR.
[2021-11-13] MEDS: hydrALAZINE HCL IV 20 MG VIAL IV PRN (17:17)
--- NOTE | 2021-11-13 18:32 | NUR ---
RN NOTES BLOOD TRANSFUSION OF PRBC X1 COMPLETED AND TOLERATED WELL. NO ADVERSE/ALLERGIC REACTIONS NOTED.
--- NOTE | 2021-11-13 18:42 | NUR ---
MS RN CLOSING NOTES PATIENT IN BED AWAKE AT THIS TIME. HOB ELEVATED. A/O X3. SPEAKS LITHUANIAN AND UNDERSTANDS LITTLE CHADIAN. ON ROOM BREATHING EVEN AND UNLABORED. RUDY MIDLINE G#18 INTACT AND PATENT. PT WITH AV FISTULA ON MARY WITH (+) BRUITS AND THRILLS, NO BLEEDING NOTED. PT REPOSITIONED IN BED Q 2HRS AND PRN. ALL NEEDS AND CARE ATTENDED WELL. SAFETY MEASURES IN PLACED: BED IN LOWEST LOCKED POSITION, SR UP X2, CALL LIGHT AND TRAY TABLE IN REACH. WILL ENDORSE ENEDINA TO MANUAL PLATE FILLER NURSE.
--- NOTE | 2021-11-13 19:25 | NUR ---
MS RN OPENING NOTES: RECEIVED PATIENT IN BED, AWAKE, A/O X4. NO S/S OF DISTRESS NOTED. NO COMPLAIN OF PAIN. CALL LIGHT WITHIN REACH. BED ALARM ON. BED IN LOWEST AND LOCKED POSITION. HOB ELEVATED. WITH LEFT ARM AV SHUNT, SIGN NO BP ON THE LEFT ARM POSTED.
[2021-11-13] MEDS: ATORVASTATIN 40 MG TABLET PO SCH (21:15)
[2021-11-13] MEDS: LATANOPROST EYE DROP 0.005% 2.5 ML BOTTLE RIGHTEYE SCH (21:15)
[2021-11-13] MEDS: ENOXAPARIN SODIUM 30 MG/0.3 ML DISP.SYRIN SQ SCH (21:15)
--- NOTE | 2021-11-13 22:39 | NUR ---
blood sugar checked= 88, no insulin needed.
[2021-11-14 06:07] LABS: CALCIUM, SERUM 8.2 mg/dL (8.5-10.1); MAGNESIUM 2.1 mg/dL (1.8-2.4); PHOSPHORUS 2.8 mg/dL (2.5-4.9); POTASSIUM 4.6 mmol/L (3.5-5.1)
[2021-11-14] MEDS: LEVOTHYROXINE SODIUM 75 MCG TABLET PO SCH (06:16)
[2021-11-14 06:46] LABS: BASOPHILS # (AUTO) 0.1 K/uL (0.0-0.2); BASOPHILS % (AUTO) 1.9 % (0.0-2.0); EOSINOPHILS % (AUTO) 5.9 % (0.0-6.0); HEMATOCRIT 27 % (33-45); LYMPHOCYTES # (AUTO) 1.2 K/uL (0.8-4.8); LYMPHOCYTES % (AUTO) 18.2 % (20.0-44.0); MEAN CORPUSCULAR HGB CONC 33 g/dl (31.0-36.0); MEAN CORPUSCULAR VOLUME 89 fL (82-100); MONOCYTES # (AUTO) 0.5 K/uL (0.1-1.30); MONOCYTES % (AUTO) 7.2 % (2.0-12.0); NEUTROPHILS # (AUTO) 4.3 K/uL (1.8-8.9); NEUTROPHILS % (AUTO) 66.8 % (43.0-81.0); PLATELET COUNT (AUTO) 327 K/uL (150-450); RED BLOOD CELL COUNT(AUTO) 3.02 MIL/uL (4.0-5.2); WHITE BLOOD COUNT (AUTO) 6.4 K/uL (4.3-11.0)
--- NOTE | 2021-11-14 07:00 | NUR ---
BLOOD SUGAR CHECKED=96, NO INSULIN NEEDED.
[2021-11-14] MEDS: BLOOD SUGAR DIAGNOSTIC 1 EACH STRIP IN SCH ×4 (07:30→21:59)
--- NOTE | 2021-11-14 07:30 | NUR ---
MS RN OPENING NOTES RECEIVED PATIENT ON BED, AWAKE AND A/O X3-4. ON ROOM AIR TOLERATING WELL. NO SOB NOTED. NOT IN DISTRESS. WITH NO COMPLAINTS OF PAIN OR DISCOMFORT AT THIS TIME. WITH IV ACCESS AT RIGHT UPPER ARM G18 MIDLINE AND AT RIGHT FOREARM G20 SALINE LOCKED, PATENT AND INTACT. SAFETY MEASURES IN PLACED. CALL LIGHT WITHIN REACH. BED ON LOWEST LOCKED POSITION, SIDE RAILS UP X2. WILL CONTINUE TO MONITOR.
[2021-11-14] MEDS: BENAZEPRIL HCL 10 MG TABLET PO SCH (09:08)
[2021-11-14] MEDS: PANTOPRAZOLE 40 MG TABLET.DR PO SCH (09:09)
[2021-11-14] MEDS: DOCUSATE SODIUM 100 MG CAPSULE PO SCH ×2 (09:09→17:00)
[2021-11-14] MEDS: VIT B CMPLX 3/FA/VIT C/BIOTIN 1 TAB TABLET PO SCH (09:09)
[2021-11-14] MEDS: GABAPENTIN 100 MG CAPSULE PO SCH (09:09)
[2021-11-14] MEDS: ASPIRIN EC 81 MG TABLET.DR PO SCH (09:09)
[2021-11-14] MEDS: SEVELAMER CARBONATE 800 MG TABLET PO SCH ×3 (09:09→17:13)
[2021-11-14] MEDS: DAKINS HALF STRENGTH (0.25%) 480 ML BOTTLE TOP SCH (09:10)
[2021-11-14] MEDS ORDERED: IV NS 0.9% 1,000 ML IV PRN (10:00)
[2021-11-14] MEDS: INSULIN REGULAR, HUMAN 100 UNIT/ML 3 ML VIAL SQ PRN ×2 (11:42→17:14)
--- NOTE | 2021-11-14 18:31 | NUR ---
MS RN CLOSING NOTES PATIENT ON BED, AWAKE AND A/O X3-4. ON ROOM AIR TOLERATING WELL. NO SOB NOTED. NOT IN DISTRESS. WITH NO COMPLAINTS OF PAIN OR DISCOMFORT AT THIS TIME. WITH IV ACCESS AT RIGHT UPPER ARM G18 MIDLINE AND AT RIGHT FOREARM G20 SALINE LOCKED, PATENT AND INTACT. DUE MEDS GIVEN. SAFETY MEASURES IN PLACED. CALL LIGHT WITHIN REACH. BED ON LOWEST LOCKED POSITION, SIDE RAILS UP X2. WILL ENDORSE TO NEXT SHIFT FOR ENEDINA.
--- NOTE | 2021-11-14 19:15 | NUR ---
MS RN OPENING NOTES: RECEIVED PATIENT IN BED, AWAKE, ON THE PHONE, NO S/S OF DISTRESS NOTED. NO COMPLAIN OF PAIN. CALL LIGHT WITHIN REACH. BED ALARM ON. BED IN LOWEST AND LOCKED POSITION. INSTRUCTED NPO POST MN, VERBALIZED UNDERSTANDING, SIGN POSTED, MOLD MAKER AWARE.
[2021-11-14 20:00] VITALS: BP 174/63
[2021-11-14] MEDS: ENOXAPARIN SODIUM 30 MG/0.3 ML DISP.SYRIN SQ SCH (21:00)
[2021-11-14] MEDS: ATORVASTATIN 40 MG TABLET PO SCH (21:53)
[2021-11-14] MEDS: *INSULIN REGULAR(HUMULIN R)HUM 100 UNIT/ML VIAL SQ PRN (22:00)
[2021-11-14] MEDS: LATANOPROST EYE DROP 0.005% 2.5 ML BOTTLE RIGHTEYE SCH (22:02)
--- NOTE | 2021-11-14 22:03 | NUR ---
BLOOD SUGAR= 60, NO INSULIN GIVEN, APPLE JUICE AND PUDDING GIVEN. WILL RECHECK THE BS AN HOUR AFTER.
--- NOTE | 2021-11-14 23:05 | NUR ---
blood sugar rechecked= 110.
[2021-11-14 23:23] VITALS: BP 149/63
[2021-11-15 04:04] LABS: BASOPHILS # (AUTO) 0.1 K/uL (0.0-0.2); BASOPHILS % (AUTO) 2.3 % (0.0-2.0); EOSINOPHILS % (AUTO) 5.5 % (0.0-6.0); HEMATOCRIT 28 % (33-45); HEMOGLOBIN 9.2 g/dL (11.5-14.8); LYMPHOCYTES # (AUTO) 1.4 K/uL (0.8-4.8); LYMPHOCYTES % (AUTO) 24.9 % (20.0-44.0); MEAN CORPUSCULAR HGB CONC 33 g/dl (31.0-36.0); MEAN CORPUSCULAR VOLUME 90 fL (82-100); MONOCYTES # (AUTO) 0.5 K/uL (0.1-1.30); MONOCYTES % (AUTO) 8.4 % (2.0-12.0); NEUTROPHILS # (AUTO) 3.3 K/uL (1.8-8.9); NEUTROPHILS % (AUTO) 58.9 % (43.0-81.0); PLATELET COUNT (AUTO) 334 K/uL (150-450); RED BLOOD CELL COUNT(AUTO) 3.08 MIL/uL (4.0-5.2); WHITE BLOOD COUNT (AUTO) 5.6 K/uL (4.3-11.0)
[2021-11-15 04:11] LABS: CREATININE 3.8 mg/dL (0.6-1.3); POTASSIUM 5.3 mmol/L (3.5-5.1)
[2021-11-15] MEDS: LEVOTHYROXINE SODIUM 75 MCG TABLET PO SCH (06:36)
[2021-11-15] MEDS: BLOOD SUGAR DIAGNOSTIC 1 EACH STRIP IN SCH ×4 (06:36→22:03)
[2021-11-15] MEDS: INSULIN REGULAR, HUMAN 100 UNIT/ML 3 ML VIAL SQ PRN ×4 (06:37→22:05)
--- NOTE | 2021-11-15 07:22 | NUR ---
MS RN OPENING NOTES RECEIVED PATIENT IN BED, AWAKE AND A/O X3-4. PATIENT IS BREATHING EVENLY AND NONLABORED ON ROOM AIR TOLERATING WELL. NO SOB NOTED. NOT IN DISTRESS. WITH NO COMPLAINTS OF PAIN OR DISCOMFORT AT THIS TIME. WITH IV ACCESS AT RIGHT UPPER ARM G18 MIDLINE AND AT RIGHT FOREARM G20 SALINE LOCKED, PATENT AND INTACT. PATIENT IS NPO FOR PROCEDURE TODAY CHECKLIST AND CONSENT COMPLETED SAFETY MEASURES IN PLACED. CALL LIGHT WITHIN REACH. BED ON LOWEST LOCKED POSITION, SIDE RAILS UP X2. WILL CONTINUE TO MONITOR.
--- NOTE | 2021-11-15 07:37 | NUR ---
RN NOTE PATIENT LEFT FOR PROCEDURE
[2021-11-15] MEDS ORDERED: ANESTHESIA TRAY IN PYXIS 1 EA TRAY MC ONE (07:44)
[2021-11-15] MEDS ORDERED: BUPIVACAINE 0.5 % PF 150 MG/30 ML VIAL ONE (07:44)
[2021-11-15] MEDS ORDERED: FENTANYL PF 100MCG/2ML AMPUL ONE ×2 (07:50→09:29)
[2021-11-15] MEDS: SEVELAMER CARBONATE 800 MG TABLET PO SCH ×3 (08:00→17:27)
[2021-11-15] MEDS ORDERED: POLYMYXIN B SULFATE 500,000 UNITS ONE (08:23)
[2021-11-15] MEDS: PANTOPRAZOLE 40 MG TABLET.DR PO SCH (09:00)
[2021-11-15] MEDS: ASPIRIN EC 81 MG TABLET.DR PO SCH (09:00)
[2021-11-15] MEDS: DAKINS HALF STRENGTH (0.25%) 480 ML BOTTLE TOP SCH (09:00)
[2021-11-15] MEDS: VIT B CMPLX 3/FA/VIT C/BIOTIN 1 TAB TABLET PO SCH (09:00)
[2021-11-15] MEDS: BENAZEPRIL HCL 10 MG TABLET PO SCH (09:00)
[2021-11-15] MEDS: DOCUSATE SODIUM 100 MG CAPSULE PO SCH ×2 (09:00→16:39)
[2021-11-15] MEDS: GABAPENTIN 100 MG CAPSULE PO SCH (09:00)
[2021-11-15] MEDS: HYDROCODONE/APAP 5/325MG TABLET PO PRN ×3 (10:31→23:36)
--- NOTE | 2021-11-15 10:34 | NUR ---
RN NOTE RECEIVED PATIENT BACK FROM PROCEDURE, VITALS WNL, COMPLAINED OF SEVERE PAIN 04/21, WILL GIVE PRN PAIN MEDICATION WILL CONTINUE TO MONITOR
--- NOTE | 2021-11-15 10:50 | NUR ---
RN NOTE PATIENT NOTED TO BE SCREAMING AND CRYING IN PAIN, MD NOTIFIED, GAVE NEW ORDER FOR DILAUDID 2MG Q3HRS IVP. VITALS WNL, WILL CONTINUE TO MONITOR
[2021-11-15] MEDS ORDERED: HYDROMORPHONE INJ 2 MG/ML DISP.SYRIN IV PRN (11:00)
--- NOTE | 2021-11-15 11:15 | NUR ---
RN NOTE UPON ROUTINE BLOOD PRESSURE CHECKS, PATIENT NOTED TO BE ALOC, RAPID RESPONSE CALLED. MD AT BEDSIDE, WITH ICU NURSE, RT, CHARGE, CORPORATE CLAIMS EXAMINER. GAVE ORDER FOR NARCAN 0.4 MG, HYDRALAZINE 10MG, PATIENT BECAME ALERT AND RESPONSIVE. MD CHANGED PAIN MEDICATION FROM DILAUDID 2MG TO MORPHINE 2MG IV Q4HRS. ORDERS NOTED CARRIED OUT. PRIMARY MD MADE AWARE, SURGEON MADE AWARE.
[2021-11-15] MEDS ORDERED: NALOXONE HCL 0.4 MG/ML AMPUL ONE (11:21)
[2021-11-15] MEDS: hydrALAZINE HCL IV 20 MG VIAL IV PRN (11:48)
[2021-11-15] MEDS ORDERED: NALOXONE PREFILLED SYRINGE 2 MG/2 ML SYRINGE IV ONE (12:00)
[2021-11-15] MEDS ORDERED: NALOXONE HCL 0.4 MG/ML AMPUL IV ONE (12:00)
[2021-11-15 12:05] VITALS: BP 144/100
[2021-11-15] MEDS: ONDANSETRON HCL/PF 4 MG/2 ML VIAL IVP PRN ×2 (15:53→22:03)
--- NOTE | 2021-11-15 16:40 | NUR ---
RN NOTE BLOOD SUGAR 174, PATIENT STATED SHE DID NOT WANT INSULIN AT THIS TIME, FAMILY AT BEDSIDE EXPLAINED RISK AND BENEFITS X 2 STILL REFUSED.
--- NOTE | 2021-11-15 18:39 | NUR ---
RN CLOSING NOTES PATIENT IN BED, AWAKE AND A/O X3-4. PATIENT IS BREATHING EVENLY AND NONLABORED ON ROOM AIR TOLERATING WELL. NO SOB NOTED. NOT IN DISTRESS. WITH NO COMPLAINTS OF PAIN OR DISCOMFORT AT THIS TIME. WITH IV ACCESS AT RIGHT UPPER ARM G18 MIDLINE AND AT RIGHT FOREARM G20 SALINE LOCKED, PATENT AND INTACT. PATIENT HAS AN EPISODE OF ALOC DURING SHIFT MEDICATION GIVEN ORDERED. VITALS MAINTAINED STABLE REST OF SHIFT. PATIENT REFUSED INSULIN STATED SHE FELT HER BLOOD SUGAR GOING DOWN, EXPLAINED RISK AND BENEFITS X2 STILL REFUSED. ALL OTHER MEDICATIONS GIVEN ORDERED. SAFETY MEASURES IN PLACED. CALL LIGHT WITHIN REACH. BED ON LOWEST LOCKED POSITION, SIDE RAILS UP X2. WILL ENDORSE TO ONCOMING SHIFT
--- NOTE | 2021-11-15 19:00 | NUR ---
SCD ON THE LEFT LEG ON. RIGHT LEG ELEVATED WITH PILLOW.
--- NOTE | 2021-11-15 19:15 | NUR ---
MS RN OPENING NOTES: RECEIVED PATIENT IN BED, ASLEEP, EASILY AROUSABLE. HOB ELEVATED. NO S/S OF DISTRESS NOTED. NO COMPLAIN OF PAIN. CALL LIGHT WITHIN REACH. BED ALARM ON. BED IN LOWEST AND LOCKED POSITION. WITH RIGHT KNEE IMMOBILIZER ON WITH MYAH INTACT, DRAINING SEROSANGUINOUS OUTPUT.
[2021-11-15 20:00] VITALS: BP 146/64
[2021-11-15] MEDS: ENOXAPARIN SODIUM 30 MG/0.3 ML DISP.SYRIN SQ SCH (22:02)
[2021-11-15] MEDS: ATORVASTATIN 40 MG TABLET PO SCH (22:03)
[2021-11-15] MEDS: LATANOPROST EYE DROP 0.005% 2.5 ML BOTTLE RIGHTEYE SCH (22:03)
[2021-11-16] VITALS: BP 146/58
[2021-11-16] MEDS: MORPHINE SULFATE INJ 2 MG/ML DISP.SYRIN IV PRN ×2 (01:10→21:30)
[2021-11-16 05:00] VITALS: BP 129/58
[2021-11-16] MEDS: LEVOTHYROXINE SODIUM 75 MCG TABLET PO SCH (06:21)
[2021-11-16 06:23] LABS: CALCIUM, SERUM 8.1 mg/dL (8.5-10.1); CREATININE 2.9 mg/dL (0.6-1.3); POTASSIUM 4.5 mmol/L (3.5-5.1)
[2021-11-16 06:25] LABS: BASOPHILS # (AUTO) 0.1 K/uL (0.0-0.2); BASOPHILS % (AUTO) 0.8 % (0.0-2.0); EOSINOPHILS % (AUTO) 0.3 % (0.0-6.0); HEMATOCRIT 23 % (33-45); HEMOGLOBIN 7.5 g/dL (11.5-14.8); LYMPHOCYTES # (AUTO) 1.2 K/uL (0.8-4.8); LYMPHOCYTES % (AUTO) 13.3 % (20.0-44.0); MEAN CORPUSCULAR HGB CONC 33 g/dl (31.0-36.0); MEAN CORPUSCULAR VOLUME 90 fL (82-100); MONOCYTES # (AUTO) 0.5 K/uL (0.1-1.30); NEUTROPHILS # (AUTO) 6.9 K/uL (1.8-8.9); NEUTROPHILS % (AUTO) 79.6 % (43.0-81.0); PLATELET COUNT (AUTO) 289 K/uL (150-450); RED BLOOD CELL COUNT(AUTO) 2.54 MIL/uL (4.0-5.2); WHITE BLOOD COUNT (AUTO) 8.6 K/uL (4.3-11.0)
[2021-11-16] MEDS: BLOOD SUGAR DIAGNOSTIC 1 EACH STRIP IN SCH ×4 (06:28→21:39)
[2021-11-16] MEDS: INSULIN REGULAR, HUMAN 100 UNIT/ML 3 ML VIAL SQ PRN ×3 (06:29→17:53)
--- NOTE | 2021-11-16 06:30 | NUR ---
BLOOD SUGAR CHECKED=87, NO INSULIN NEEDED. RESTED THROUGHOUT THE NIGHT. MYAH DRAINED= 30ML OUTPUT AND RECORDED. PATIENT IN BED, AWAKE. NO S/S OF DISTRESS NOTED. CALL LIGHT WITHIN REACH. BED IN LOWEST AND LOCKED POSITION. BEDREST. WITH RIGHT BKA IMMOBILIZER. MYAH DRAIN INTACT.NO COMPLAIN OF PAIN AT THIS TIME.HOB ELEVATED. NO NAUSEA AT THIS TIME. RIGHT BKA ELEVATED AT ALL TIMES. HEELS OFFLOADED.
--- NOTE | 2021-11-16 07:13 | NUR ---
MS RN OPENING NOTES RECEIVED PATIENT IN BED, AWAKE AND A/O X3-4. PATIENT IS BREATHING EVENLY AND NONLABORED ON ROOM AIR TOLERATING WELL. NO SOB NOTED. NOT IN DISTRESS. WITH NO COMPLAINTS OF PAIN OR DISCOMFORT AT THIS TIME. WITH IV ACCESS AT RIGHT UPPER ARM G18 MIDLINE AND AT RIGHT FOREARM G20 SALINE LOCKED, PATENT AND INTACT. SAFETY MEASURES IN PLACED. CALL LIGHT WITHIN REACH. BED ON LOWEST LOCKED POSITION, SIDE RAILS UP X2. WILL CONTINUE TO MONITOR.
[2021-11-16 08:00] VITALS: BP 164/66
[2021-11-16] MEDS: ASPIRIN EC 81 MG TABLET.DR PO SCH (08:30)
[2021-11-16] MEDS: GABAPENTIN 100 MG CAPSULE PO SCH (08:30)
[2021-11-16] MEDS: VIT B CMPLX 3/FA/VIT C/BIOTIN 1 TAB TABLET PO SCH (08:30)
[2021-11-16] MEDS: DOCUSATE SODIUM 100 MG CAPSULE PO SCH ×2 (08:31→17:17)
[2021-11-16] MEDS: PANTOPRAZOLE 40 MG TABLET.DR PO SCH (08:31)
[2021-11-16] MEDS: SEVELAMER CARBONATE 800 MG TABLET PO SCH ×3 (08:31→17:17)
[2021-11-16] MEDS: BENAZEPRIL HCL 10 MG TABLET PO SCH (08:36)
[2021-11-16] MEDS: DAKINS HALF STRENGTH (0.25%) 480 ML BOTTLE TOP SCH (09:00)
[2021-11-16 16:00] VITALS: BP 149/58
[2021-11-16] MEDS: HYDROCODONE/APAP 5/325MG TABLET PO PRN (18:11)
--- NOTE | 2021-11-16 18:48 | NUR ---
RN CLOSING NOTES PATIENT IN BED, AWAKE AND A/O X3-4. PATIENT IS BREATHING EVENLY AND NONLABORED ON ROOM AIR TOLERATING WELL. NO SOB NOTED. NOT IN DISTRESS. WITH NO COMPLAINTS OF PAIN OR DISCOMFORT AT THIS TIME. WITH IV ACCESS AT RIGHT UPPER ARM G18 MIDLINE AND AT RIGHT FOREARM G20 SALINE LOCKED, PATENT AND INTACT.PATIENT COMPLAINED OF PAIN DURING SHIFT, PAIN MEDICATIONS GIVEN VITALS MAINTAINED WNL. ALL MEDICATIONS GIVEN ORDERED. SAFETY MEASURES IN PLACED. CALL LIGHT WITHIN REACH. BED ON LOWEST LOCKED POSITION, SIDE RAILS UP X2. WILL ENDORSE TO ONCOMING SHIFT
--- NOTE | 2021-11-16 19:30 | NUR ---
MS RN NOTES RECEIVED LYING ON BED,A/O X 3-4,BREATHING REGULAR,NOT IN ANY FORM OF DISTRESS,S/P RIGHT BKA WITH MYAH DRAIN IN PLACE,DRESSING INTACT AND DRY,LEFT EYE BLIND,RIGHT EYE BLURRY,WITH LEFT AV SHUNT FOR HD ACCESS,WITH RIGHT UPPER MIDLINE FOR MEDS,RFA SALINE LOCK INTACT AND PATENT,DVT PUMP ION USED ON LEFT LEG,WILL MONITOR FOR PAIN,CALL LIGHT IN REACH,NEEDS ANTICIPATED.
[2021-11-16 20:00] VITALS: BP 159/62
--- NOTE | 2021-11-16 21:30 | NUR ---
MS RN NOTES C/O PAIN 8/10 ON RIGHT BKA,MORPHINE 2MG IV GIVEN ORDERED.
[2021-11-16] MEDS: ATORVASTATIN 40 MG TABLET PO SCH (21:40)
[2021-11-16] MEDS: LATANOPROST EYE DROP 0.005% 2.5 ML BOTTLE RIGHTEYE SCH (21:40)
--- NOTE | 2021-11-16 21:45 | NUR ---
MS RN NOTES ACCU-CHECK BLOOD SUGAR CHECK 76,NO INSULIN COVERAGE,APPLE JUICE GIVEN.
[2021-11-16] MEDS: ONDANSETRON HCL/PF 4 MG/2 ML VIAL IVP PRN (21:49)
--- NOTE | 2021-11-16 21:49 | NUR ---
MS RN NOTES FEELING NAUSEOUS,ZOFRAN 4MG IV GIVEN ORDERED.
--- NOTE | 2021-11-17 05:50 | NUR ---
MS RN NOTES ACCU-CHECK BLOOD SUGAR CHECK 90,NO INSULIN COVERAGE.
--- NOTE | 2021-11-17 06:19 | NUR ---
MS RN NOTES SLEEP WELL AT NIGHT,PAIN IMPROVED,FOR HD TODAY WITH ORDER,NO DISTRESS.
[2021-11-17 06:26] LABS: BASOPHILS # (AUTO) 0.1 K/uL (0.0-0.2); BASOPHILS % (AUTO) 1.9 % (0.0-2.0); EOSINOPHILS % (AUTO) 4.6 % (0.0-6.0); HEMATOCRIT 22 % (33-45); HEMOGLOBIN 7.3 g/dL (11.5-14.8); LYMPHOCYTES # (AUTO) 1.5 K/uL (0.8-4.8); LYMPHOCYTES % (AUTO) 24.1 % (20.0-44.0); MEAN CORPUSCULAR HGB CONC 33 g/dl (31.0-36.0); MEAN CORPUSCULAR VOLUME 90 fL (82-100); MONOCYTES # (AUTO) 0.6 K/uL (0.1-1.30); MONOCYTES % (AUTO) 10.3 % (2.0-12.0); NEUTROPHILS # (AUTO) 3.7 K/uL (1.8-8.9); NEUTROPHILS % (AUTO) 59.1 % (43.0-81.0); PLATELET COUNT (AUTO) 278 K/uL (150-450); RED BLOOD CELL COUNT(AUTO) 2.45 MIL/uL (4.0-5.2); WHITE BLOOD COUNT (AUTO) 6.2 K/uL (4.3-11.0)
[2021-11-17] MEDS: LEVOTHYROXINE SODIUM 75 MCG TABLET PO SCH (06:44)
[2021-11-17 06:53] LABS: CREATININE 3.8 mg/dL (0.6-1.3); POTASSIUM 5.1 mmol/L (3.5-5.1)
--- NOTE | 2021-11-17 07:28 | NUR ---
MS RN OPENING NOTES RECEIVED PATIENT IN BED AWAKE AND TALKING TO SOMEBODY ON HER CELLPHONE. A/O X3. SPEAKS CHINESE AND UNDERSTANDS LITTLE CITIZEN OF [place], DENIES PAIN OR DISCOMFORTS AT THIS TIME. ON ROOM BREATHING EVEN AND UNLABORED. RUDY MIDLINE G#18 INTACT AND PATENT. PT WITH AV FISTULA ON MARY WITH (+) BRUITS AND THRILLS, NO BLEEDING NOTED AT SITE. DRESSING ON RIGHT FOOT C/D/I WITH IMMOBILIZER IN PLACE AND MYAH DRAIN NOTED WITH SMALL AMOUNT OF SEROSANGUINEOUS DRAINAGE. SAFETY MEASURES IN PLACED: BED IN LOWEST LOCKED POSITION, SR UP X2, BED ALARM ON, CALL LIGHT AND TRAY TABLE IN REACH. WILL CONTINUE TO MONITOR PT ACCORDINGLY.
[2021-11-17] MEDS: BLOOD SUGAR DIAGNOSTIC 1 EACH STRIP IN SCH ×4 (07:42→21:23)
[2021-11-17 07:57] VITALS: BP 176/84
[2021-11-17] MEDS: SEVELAMER CARBONATE 800 MG TABLET PO SCH ×3 (08:58→17:58)
[2021-11-17] MEDS: DOCUSATE SODIUM 100 MG CAPSULE PO SCH ×2 (09:00→16:38)
[2021-11-17] MEDS: VIT B CMPLX 3/FA/VIT C/BIOTIN 1 TAB TABLET PO SCH (09:02)
[2021-11-17] MEDS: GABAPENTIN 100 MG CAPSULE PO SCH (09:02)
[2021-11-17] MEDS: ASPIRIN EC 81 MG TABLET.DR PO SCH (09:02)
[2021-11-17] MEDS: BENAZEPRIL HCL 10 MG TABLET PO SCH (09:03)
[2021-11-17] MEDS: PANTOPRAZOLE 40 MG TABLET.DR PO SCH (09:04)
[2021-11-17] MEDS: DAKINS HALF STRENGTH (0.25%) 480 ML BOTTLE TOP SCH (09:04)
[2021-11-17] MEDS: INSULIN REGULAR, HUMAN 100 UNIT/ML 3 ML VIAL SQ PRN ×2 (11:40→17:03)
--- NOTE | 2021-11-17 12:50 | NUR ---
RN NOTES HD COMPLETED VIA MARY AV FISTULA WITH 2,000 ML OUT
--- NOTE | 2021-11-17 14:20 | NUR ---
RN NOTES CALLED DR SINAN MARTIN'S OFFICE, SPOKED TO TIM AND SHE STATED THAT DR MENON LAST PT WILL FINISH AT 1600. LEFT MESSAGE TO HER FOR DR MENON WHETHER TO CLEAR PT FOR D/C.
[2021-11-17] MEDS: MORPHINE SULFATE INJ 2 MG/ML DISP.SYRIN IV PRN (15:37)
[2021-11-17] MEDS: hydrALAZINE HCL IV 20 MG VIAL IV PRN (15:43)
--- NOTE | 2021-11-17 15:47 | NUR ---
PT COMPLAIN OF RIGHT FOOT PAIN DUE TO S/P RIGHT BKA WITH PAIN SCALE LEVEL OF 9/10. MORPHINE 2MG IVP ORDERED PRN. WILL MONITOR AND REASSESS PT.
[2021-11-17 16:07] VITALS: BP 168/72
--- NOTE | 2021-11-17 17:30 | NUR ---
RN NOTES DR MENON CAME TO REMOVED MYAH DRAIN ON PT'S RIGHT BKA AND KEPT DRESSING IN PLACED.
--- NOTE | 2021-11-17 17:35 | NUR ---
RN NOTES CALLED MOLDER PIPE COVERING AND SPOKE WITH JALIL, INFORMED THAT DR. MENON CAME TO SEE PT AND CLEARED PT FOR DC. PER JALIL SHE WILL CHECK IF SHE WILL BE DC TODAY OR TOMORROW AND WILL CALL BACK.
--- NOTE | 2021-11-17 18:39 | NUR ---
MS RN CLOSING NOTES PATIENT IN BED AWAKE AND RESTING AT MODERATE HIGH BACKREST POSITION. A/O X3. SPEAKS MOHAW[place] AND UNDERSTANDS LITTLE SLOVENIAN,. PT IS COOPERATIVE WITH CARE. ON ROOM AIR, BREATHING EVEN AND UNLABORED, NO SOB NOTED DURING SHIFT. RUDY MIDLINE G#18 INTACT AND PATENT. PT WITH AV FISTULA ON MARY WITH (+) BRUITS AND THRILLS PRESENT, NO BLEEDING NOTED AT SITE. DRESSING ON RIGHT FOOT C/D/I WITH IMMOBILIZER IN PLACE. PT TURNED AND REPOSITIONED Q 2HRS AND PRN. ALL NEEDS AND CARE PROVIDED WELL. SAFETY MEASURES KEPT IN PLACED: BED IN LOWEST LOCKED POSITION, SR UP X2, BED ALARM ON, CALL LIGHT AND TRAY TABLE IN REACH. WILL ENDORSE ENEDINA TO NOVELTY MAKER NURSE.
--- NOTE | 2021-11-17 19:15 | NUR ---
RN opening notes Pt is laying in bed comfortably talking on her cellphone. Pt is alert and orientedX4. On room air. No S/S of distress noted. RUDY midline is clean,and intact. LAV shunt in place. R foot BKA dressing is clean, intact and dry with immobilizer in place. Safety precautions is maintained. Bed at low position, brakes locked, side rails upX3, hob elevated and call light is within reach. Will continue to monitor.
[2021-11-17 20:00] VITALS: BP 137/56
[2021-11-17] MEDS: ATORVASTATIN 40 MG TABLET PO SCH (21:15)
[2021-11-17] MEDS: LATANOPROST EYE DROP 0.005% 2.5 ML BOTTLE RIGHTEYE SCH (21:15)
[2021-11-17] MEDS: *INSULIN REGULAR(HUMULIN R)HUM 100 UNIT/ML VIAL SQ PRN (21:24)
--- NOTE | 2021-11-17 22:00 | NUR ---
RN notes HS blood sugar check 105. no coverage is given. will continue to monitor.
[2021-11-18] VITALS: BP 143/63
--- NOTE | 2021-11-18 02:00 | NUR ---
RN notes Wound care provided as ordered. Pt tolerated activity well.
[2021-11-18] MEDS: BLOOD SUGAR DIAGNOSTIC 1 EACH STRIP IN SCH ×4 (06:33→21:17)
[2021-11-18] MEDS: INSULIN REGULAR, HUMAN 100 UNIT/ML 3 ML VIAL SQ PRN ×2 (06:34→12:10)
--- NOTE | 2021-11-18 06:43 | NUR ---
RN closing notes Pt is resting in bed comfortably. Pt is alert and orientedX4. On room air. No SOB. No S/S of distress noted. VS is stable. RUDY midline is clean,and intact. LAV shunt in place. Wound care provided as ordered. R foot BKA dressing is clean, intact and dry with immobilizer in place. Kept Pt clean, dry and comfortable. All needs met and attended. Safety precautions is maintained. Bed at low position, brakes locked, side rails upX3, hob elevated and call light is within reach. Will endorse to am nurse for ENEDINA.
--- NOTE | 2021-11-18 07:30 | NUR ---
MS RN OPENING NOTES RECEIVED PATIENT ON BED RESTING AND A/O X4. ON ROOM AIR TOLERATING WELL. NO SOB NOTED. NOT IN DISTRESS. WITH NO COMPLAINTS OF PAIN OR DISCOMFORT AT THIS TIME. WITH IV ACCESS AT RIGHT UPPER ARM MIDLINE, SALINE LOCKED, PATENT AND INTACT. S/P RIGHT BKA DRESSING IS CLEAN, INATCT AND DRY WITH IMMOBILIZER IN PLACED. SAFETY MEASURES IN PLACED. CALL LIGHT WITHIN REACH. BED ON LOWEST LOCKED POSITION, SIDE RAILS UP X2. WILL CONTINUE TO MONITOR.
[2021-11-18] MEDS: ASPIRIN EC 81 MG TABLET.DR PO SCH (08:03)
[2021-11-18] MEDS: GABAPENTIN 100 MG CAPSULE PO SCH (08:03)
[2021-11-18] MEDS: BENAZEPRIL HCL 10 MG TABLET PO SCH (08:03)
[2021-11-18] MEDS: SEVELAMER CARBONATE 800 MG TABLET PO SCH ×3 (08:03→17:10)
[2021-11-18] MEDS: DOCUSATE SODIUM 100 MG CAPSULE PO SCH ×2 (08:03→17:00)
[2021-11-18] MEDS: PANTOPRAZOLE 40 MG TABLET.DR PO SCH (08:03)
[2021-11-18] MEDS: LEVOTHYROXINE SODIUM 75 MCG TABLET PO SCH (08:03)
[2021-11-18] MEDS: VIT B CMPLX 3/FA/VIT C/BIOTIN 1 TAB TABLET PO SCH (08:03)
[2021-11-18] MEDS: DAKINS HALF STRENGTH (0.25%) 480 ML BOTTLE TOP SCH (08:04)
[2021-11-18] MEDS: BISACODYL (5 MG) 5 MG TABLET.DR PO PRN (10:24)
--- NOTE | 2021-11-18 18:27 | NUR ---
MS RN CLOSING NOTES PATIENT ON BED RESTING AND A/O X4. ON ROOM AIR TOLERATING WELL. NO SOB NOTED. NOT IN DISTRESS. WITH NO COMPLAINTS OF PAIN OR DISCOMFORT AT THIS TIME. WITH IV ACCESS AT RIGHT UPPER ARM MIDLINE, SALINE LOCKED, PATENT AND INTACT. S/P RIGHT BKA DRESSING IS CLEAN, INTACT AND DRY WITH IMMOBILIZER IN PLACED. FOR DISCHARGE BACK TO [facility] AWAITING FOR ROOM AVAILABILITY. SAFETY MEASURES IN PLACED. CALL LIGHT WITHIN REACH. BED ON LOWEST LOCKED POSITION, SIDE RAILS UP X2. WILL ENDORSE TO NEXT SHIFT FOR ENEDINA.
--- NOTE | 2021-11-18 19:30 | NUR ---
RN OPENING NOTE PATIENT IN BED, AWAKE. PATIENT IS DANISH SPEAKING ONLY, A/O X 4. PATIENT IS ON RA, TOLERATING WELL. NO SOB OR ANY APPARENT RESPIRATORY DISTRESS. PATIENT S/P BKA, IMMOBILIZER ON AND DRESSING C/D/I. PATIENT HAS A RUDY MIDLINE PATENT AND INTACT AND LAV SHUNT BRUIT AND THRILL PRESENT. PATIENT FOR DC TO [facility] BUT PER LORETTA FIGUEROA, THERE IS NO ROOM AVAILABLE FOR PATIENT TODAY. PATIENT NOT IN ANY PAIN AT THIS TIME. SAFETY MEASURES IN PLACE: BED LOCKED AND IN LOWEST POSITION, CALL LIGHT WITHIN REACH, SIDE RAILS UP. WILL MONITOR PATIENT CLOSELY.
[2021-11-18 20:37] VITALS: BP 169/39
[2021-11-18] MEDS: hydrALAZINE HCL IV 20 MG VIAL IV PRN (21:16)
[2021-11-18] MEDS: ATORVASTATIN 40 MG TABLET PO SCH (21:16)
[2021-11-18] MEDS: LATANOPROST EYE DROP 0.005% 2.5 ML BOTTLE RIGHTEYE SCH (21:16)
--- NOTE | 2021-11-18 21:16 | NUR ---
RN NOTE HYDRALAZINE GIVEN FOR SBP 189/84
[2021-11-18] MEDS: *INSULIN REGULAR(HUMULIN R)HUM 100 UNIT/ML VIAL SQ PRN (21:22)
--- NOTE | 2021-11-18 22:00 | NUR ---
RN NOTE PATIENT GIVEN 2 UNITS OF INSULIN COVERAGE FOR BS 137 MG/DL. SNACKS PROVIDED. WILL MONITOR PATIENT FOR HYPOGLYCEMIA.
[2021-11-19 00:23] VITALS: BP 146/41
--- NOTE | 2021-11-19 02:35 | NUR ---
RN NOTE WOUND CARE PROVIDED TO THE R BKA SITE ORDERED. PATIENT DENIES ANY PAIN AND TOLERATED DRESSING CHANGE WELL.
[2021-11-19 04:15] VITALS: BP 150/41
[2021-11-19] MEDS: LEVOTHYROXINE SODIUM 75 MCG TABLET PO SCH (06:29)
--- NOTE | 2021-11-19 06:54 | NUR ---
RN CLOSING NOTE PATIENT IN BED, AWAKE. PATIENT IS KOREAN SPEAKING ONLY, A/O X 4. PATIENT IS ON RA, TOLERATING WELL. NO SOB OR ANY APPARENT RESPIRATORY DISTRESS. PATIENT S/P BKA, IMMOBILIZER ON AND DRESSING C/D/I. PATIENT HAS A RUDY MIDLINE PATENT AND INTACT AND LAV SHUNT BRUIT AND THRILL PRESENT. PATIENT NOT IN ANY PAIN AT THIS TIME. DRESSING ON R BKA C/D/I. BS 88 MG/DL, PATIENT GIVEN JUICE AND SNACKS. PATIENT ON TELE OBSERVATION 86 BPM. NO S/S OF HYPOGLYCEMIA. SAFETY MEASURES IN PLACE: BED LOCKED AND IN LOWEST POSITION, CALL LIGHT WITHIN REACH, SIDE RAILS UP. ALL NEEDS MET AND ATTENDED. ALL ORDERS CARRIED OUT. WILL ENDORSE TO DAY SHIFT NURSE FOR ENEDINA.
[2021-11-19] MEDS: BLOOD SUGAR DIAGNOSTIC 1 EACH STRIP IN SCH ×4 (06:57→22:42)
--- NOTE | 2021-11-19 07:30 | NUR ---
SCOOP OPERATOR OPENING NOTES RECEIVED PATIENT IN BED, AWAKE. PATIENT IS LUXEMBOURGISH SPEAKING ONLY, A/O X 4. PATIENT IS ON RA, TOLERATING WELL. NO SOB OR ANY APPARENT RESPIRATORY DISTRESS. PATIENT S/P BKA, IMMOBILIZER ON AND DRESSING C/D/I. PATIENT HAS A RUDY MIDLINE PATENT AND INTACT AND LAV SHUNT BRUIT AND THRILL PRESENT. PATIENT FOR DC TO [facility], AWAITING ROOM AVAILABLE FOR PATIENT. PATIENT NOT IN ANY PAIN AT THIS TIME. SAFETY MEASURES IN PLACE: BED LOCKED AND IN LOWEST POSITION, CALL LIGHT WITHIN REACH, SIDE RAILS UP. WILL MONITOR PATIENT CLOSELY. Addendum: 11/19/21 at 0744 by JACEY FARRELL RN ADDENDUM; ON TELE MONITORING READING SHOWING SR HR AT 69 BPM.
[2021-11-19] MEDS: SEVELAMER CARBONATE 800 MG TABLET PO SCH ×3 (08:18→17:03)
[2021-11-19] MEDS: ASPIRIN EC 81 MG TABLET.DR PO SCH (08:18)
[2021-11-19] MEDS: PANTOPRAZOLE 40 MG TABLET.DR PO SCH (08:18)
[2021-11-19] MEDS: DOCUSATE SODIUM 100 MG CAPSULE PO SCH ×2 (08:18→17:02)
[2021-11-19] MEDS: VIT B CMPLX 3/FA/VIT C/BIOTIN 1 TAB TABLET PO SCH (08:18)
[2021-11-19] MEDS: GABAPENTIN 100 MG CAPSULE PO SCH (08:18)
[2021-11-19] MEDS: DAKINS HALF STRENGTH (0.25%) 480 ML BOTTLE TOP SCH (08:19)
[2021-11-19] MEDS: BENAZEPRIL HCL 10 MG TABLET PO SCH (08:19)
[2021-11-19 08:42] VITALS: BP 141/41
[2021-11-19] MEDS: INSULIN REGULAR, HUMAN 100 UNIT/ML 3 ML VIAL SQ PRN ×2 (11:50→17:38)
[2021-11-19] MEDS: BISACODYL (5 MG) 5 MG TABLET.DR PO PRN (13:21)
--- NOTE | 2021-11-19 18:40 | NUR ---
BREAKER MACHINE TENDER CLOSING NOTES PATIENT IN BED, AWAKE. PATIENT IS VIETNAMESE SPEAKING ONLY, A/O X 4. PATIENT IS ON RA, TOLERATING WELL. NO SOB OR ANY APPARENT RESPIRATORY DISTRESS. PATIENT S/P BKA, IMMOBILIZER ON AND DRESSING C/D/I. PATIENT HAS A RUDY MIDLINE PATENT AND INTACT AND LAV SHUNT BRUIT AND THRILL PRESENT. PATIENT FOR DC TO [facility], AWAITING ROOM AVAILABLE FOR PATIENT. PATIENT NOT IN ANY PAIN AT THIS TIME. ON TELE READING SHOWING SR HR AT 73 BPM. SAFETY MEASURES IN PLACE: BED LOCKED AND IN LOWEST POSITION, CALL LIGHT WITHIN REACH, SIDE RAILS UP. ALL NEEDS ATTENDED AND MET. DUE MEDS GIVEN ORDERED. WILL ENDORSE TO ONCOMING SHIFT FOR ENEDINA.
--- NOTE | 2021-11-19 19:20 | NUR ---
TELE/RN OPENING NOTE RECEIVED PATIENT RESTING IN BED. AWAKE, ALERT AND ORIENTED X 4. PRIMARILY [place] SPEAKING. ABLE TO MAKE NEEDS KNOWN. DENIES PAIN AT THIS TIME. CONTINUES ON ROOM AIR WITH NO S/SX OF RESPIRATORY DISTRESS NOTED. IV ACCESS TO RIGHT UPPER ARM MIDLINE #18G INTACT, PATENT AND SALINE LOCKED. LEFT UPPER ARM AV SHUNT IN PLACE FOR DIALYSIS WITH POSITIVE BRUIT/THRILL. DRESSING TO RIGHT BKA SURGICAL SITE C/D/I. CALL LIGHT WITHIN REACH. ASPIRATION, FALL AND SAFETY PRECAUTIONS MAINTAINED. WILL CONTINUE TO MONITOR. Addendum: 11/19/21 at 2015 by WILNER RUBIN RN CONTINUES ON TELE MONITOR WITH CURRENT READING SR.
[2021-11-19 20:00] VITALS: BP 154/76
[2021-11-19] MEDS: ATORVASTATIN 40 MG TABLET PO SCH (22:42)
[2021-11-19] MEDS: LATANOPROST EYE DROP 0.005% 2.5 ML BOTTLE RIGHTEYE SCH (22:43)
[2021-11-20] VITALS: BP 138/78
[2021-11-20 04:00] VITALS: BP 131/65
--- NOTE | 2021-11-20 06:10 | NUR ---
TELE/RN CLOSING NOTE PATIENT CURRENTLY SLEEPING IN BED. ALERT AND ORIENTED X 4. PRIMARILY PAKISTANI SPEAKING. ABLE TO MAKE NEEDS KNOWN. DENIES PAIN AT THIS TIME. CONTINUES ON ROOM AIR WITH NO S/SX OF RESPIRATORY DISTRESS NOTED. IV ACCESS TO RIGHT UPPER ARM MIDLINE #18G INTACT, PATENT AND SALINE LOCKED. LEFT UPPER ARM AV SHUNT IN PLACE FOR DIALYSIS WITH POSITIVE BRUIT/THRILL. DRESSING TO RIGHT BKA SURGICAL SITE C/D/I. CALL LIGHT WITHIN REACH. ASPIRATION, FALL AND SAFETY PRECAUTIONS MAINTAINED. WILL ENDORSE PLAN OF CARE TO ONCOMING SHIFT.
[2021-11-20] MEDS: BLOOD SUGAR DIAGNOSTIC 1 EACH STRIP IN SCH ×4 (06:26→22:24)
--- NOTE | 2021-11-20 07:53 | NUR ---
DRAFTER ELECTRICAL OPENING NOTES PATIENT CURRENTLY SLEEPING IN BED, AWAKEN EASILY. ALERT AND ORIENTED X 4. PRIMARILY CROATIAN SPEAKING. ABLE TO MAKE NEEDS KNOWN. DENIES PAIN AT THIS TIME. CONTINUES ON ROOM AIR WITH NO S/SX OF RESPIRATORY DISTRESS NOTED. IV ACCESS TO RIGHT UPPER ARM MIDLINE #18G INTACT, PATENT AND SALINE LOCKED. LEFT UPPER ARM AV SHUNT IN PLACE FOR DIALYSIS WITH POSITIVE BRUIT/THRILL. DRESSING TO RIGHT BKA SURGICAL SITE C/D/I. SAFETY PRECAUTIONS IN PLACE; BED IN LOW POSITION AND LOCKED, RAILS UP X2, CALL LIGHT WITHIN REACH. WILL CONTINUE TO MONITOR PATIENT.
[2021-11-20 08:43] VITALS: BP 152/67
[2021-11-20] MEDS: VIT B CMPLX 3/FA/VIT C/BIOTIN 1 TAB TABLET PO SCH (08:50)
[2021-11-20] MEDS: ASPIRIN EC 81 MG TABLET.DR PO SCH (08:51)
[2021-11-20] MEDS: PANTOPRAZOLE 40 MG TABLET.DR PO SCH (08:51)
[2021-11-20] MEDS: BENAZEPRIL HCL 10 MG TABLET PO SCH (08:52)
[2021-11-20] MEDS: SEVELAMER CARBONATE 800 MG TABLET PO SCH ×3 (08:52→17:55)
[2021-11-20] MEDS: LEVOTHYROXINE SODIUM 75 MCG TABLET PO SCH (08:52)
[2021-11-20] MEDS: DAKINS HALF STRENGTH (0.25%) 480 ML BOTTLE TOP SCH (08:53)
[2021-11-20] MEDS: GABAPENTIN 100 MG CAPSULE PO SCH (08:53)
[2021-11-20] MEDS: DOCUSATE SODIUM 100 MG CAPSULE PO SCH ×2 (08:57→16:03)
[2021-11-20] MEDS: BISACODYL (5 MG) 5 MG TABLET.DR PO PRN (09:30)
[2021-11-20 12:06] VITALS: BP 178/87
--- NOTE | 2021-11-20 14:54 | NUR ---
LIQUOR GRINDING MILL OPERATOR NOTES PATIENT HAD DIALYSIS. POST HD BP 153/51 HR 69 PER HD NURSE 2 L REMOVED
[2021-11-20 16:21] VITALS: BP 158/66
--- NOTE | 2021-11-20 18:49 | NUR ---
DECKHAND CLAM DREDGE CLOSING NOTES PATIENT REMAINS IN BED, ASLEEP, AWAKEN EASILY. ALERT AND ORIENTED X 4. PRIMARILY K[place] SPEAKING. BLIND IN HER L EYE. ABLE TO MAKE NEEDS KNOWN. DENIES PAIN DURING THE DAY. CONTINUES ON ROOM AIR WITH NO S/SX OF RESPIRATORY DISTRESS NOTED. IV ACCESS TO RIGHT UPPER ARM MIDLINE #18G INTACT, PATENT AND SALINE LOCKED. LEFT UPPER ARM AV SHUNT IN PLACE FOR DIALYSIS WITH POSITIVE BRUIT/THRILL. DRESSING TO RIGHT BKA SURGICAL SITE C/D/I. ALL NEEDS ATTENDED DURING THE DAY. SAFETY PRECAUTIONS IN PLACE; BED IN LOW POSITION AND LOCKED, RAILS UP X2, CALL LIGHT WITHIN REACH. WILL ENDORSE T WEB PRODUCTION MANAGER NURSE FOR ENEDINA.
--- NOTE | 2021-11-20 19:30 | NUR ---
WATER SUPERINTENDENT OPENING NOTE RECEIVED PATIENT IN BED, A/OX4. NO S/S OF APPARENT DISTRESS IN ROOM AIR. DENIES PAIN. PATIENT NOTED R. BKA WITH ANAY WRAP AND IMMOBILIZER IN PLACE. NO FLUIDS RUNNING AT THIS TIME ON R. UA ML #18 G. L. ARM AV FISTULA BRUIT AND THRILLED AUSCULTATED AND FELT. TELE MONITOR READING SR [address] DISCHARGE ORDER IN PLACE. WILL CONTINUE TO MONITOR PATIENT.
[2021-11-20 20:00] VITALS: BP 149/70
[2021-11-20] MEDS: ATORVASTATIN 40 MG TABLET PO SCH (22:11)
[2021-11-20] MEDS: LATANOPROST EYE DROP 0.005% 2.5 ML BOTTLE RIGHTEYE SCH (22:24)
[2021-11-21] VITALS: BP_SYST 160; BP_SYST 66; BP_DIAS 160; BP_DIAS 68
[2021-11-21 04:00] VITALS: BP 158/70
[2021-11-21] MEDS: POLYETHYLENE GLYCOL 3350 17 GM POWD.PACK PO PRN (05:12)
[2021-11-21] MEDS: BLOOD SUGAR DIAGNOSTIC 1 EACH STRIP IN SCH ×4 (06:35→22:10)
[2021-11-21] MEDS: INSULIN REGULAR, HUMAN 100 UNIT/ML 3 ML VIAL SQ PRN (06:36)
--- NOTE | 2021-11-21 06:47 | NUR ---
SLIVER HANDLER CLOSING NOTE PATIENT IN BED WITH EYES CLOSED, EASY TO AROUSE. NO S/S OF APPARENT DISTRESS IN ROOM AIR. NO C/O PAIN. C/O CONSTIPATION FOR 5 DAYS, GIVEN MIRALAX. TELE MONITOR READING SR THROUGHOUT SHIFT, 65 BPM. ALL NEEDS ATTENDED. ALL SCHEDULED MEDS ADMINISTERED. SAFETY KEPT IN PLACE THE WHOLE SHIFT. WILL ENDORSE TO MORNING SHIFT RN FOR CONTINUITY OF CARE.
[2021-11-21] MEDS: LEVOTHYROXINE SODIUM 75 MCG TABLET PO SCH (07:01)
--- NOTE | 2021-11-21 07:29 | NUR ---
FUR EXAMINER OPENING NOTES RECEIVED PATIENT IN BED, AWAKE, ALERT AND ORIENTED X 4. ABLE TO MAKE NEEDS KNOWN. DENIES PAIN AT THIS TIME. CONTINUES ON ROOM AIR WITH NO S/SX OF RESPIRATORY DISTRESS NOTED. TELE MONITOR WITH A CURRENT READING OF SR 69 BPM. IV ACCESS TO RIGHT UPPER ARM MIDLINE #18G INTACT, PATENT AND SALINE LOCKED. LEFT UPPER ARM AV SHUNT IN PLACE FOR DIALYSIS WITH POSITIVE BRUIT/THRILL. DRESSING TO RIGHT BKA SURGICAL SITE C/D/I. SAFETY PRECAUTIONS IN PLACE; BED IN LOW POSITION AND LOCKED, RAILS UP X2, CALL LIGHT WITHIN REACH. WILL CONTINUE TO MONITOR PATIENT.
[2021-11-21 08:38] VITALS: BP 165/70
[2021-11-21] MEDS: ASPIRIN EC 81 MG TABLET.DR PO SCH (08:54)
[2021-11-21] MEDS: SEVELAMER CARBONATE 800 MG TABLET PO SCH ×3 (08:54→17:41)
[2021-11-21] MEDS: PANTOPRAZOLE 40 MG TABLET.DR PO SCH (08:54)
[2021-11-21] MEDS: VIT B CMPLX 3/FA/VIT C/BIOTIN 1 TAB TABLET PO SCH (08:54)
[2021-11-21] MEDS: GABAPENTIN 100 MG CAPSULE PO SCH (08:55)
[2021-11-21] MEDS: DOCUSATE SODIUM 100 MG CAPSULE PO SCH ×2 (08:55→16:12)
[2021-11-21] MEDS: BENAZEPRIL HCL 10 MG TABLET PO SCH (08:55)
[2021-11-21] MEDS: DAKINS HALF STRENGTH (0.25%) 480 ML BOTTLE TOP SCH (08:56)
[2021-11-21] MEDS: BISACODYL (5 MG) 5 MG TABLET.DR PO PRN (12:07)
[2021-11-21 12:08] VITALS: BP 180/98
[2021-11-21 16:20] VITALS: BP 166/70
--- NOTE | 2021-11-21 18:59 | NUR ---
AIR DRILL OPERATOR CLOSING NOTES PATIENT REMAINS IN BED, AWAKE, ALERT AND ORIENTED X 4. ABLE TO MAKE NEEDS KNOWN. DENIES PAIN DURING SHIFT. CONTINUES ON ROOM AIR WITH NO S/SX OF RESPIRATORY DISTRESS NOTED. TELE MONITOR WITH A CURRENT READING OF SR. IV ACCESS TO RIGHT UPPER ARM MIDLINE #18G INTACT, PATENT AND SALINE LOCKED. LEFT UPPER ARM AV SHUNT IN PLACE FOR DIALYSIS WITH POSITIVE BRUIT/THRILL. DRESSING TO RIGHT BKA SURGICAL SITE C/D/I. ALL NEEDS ATTENDED DURING THE DAY. SAFETY PRECAUTIONS IN PLACE; BED IN LOW POSITION AND LOCKED, RAILS UP X2, CALL LIGHT WITHIN REACH. WILL ENDORSE TO END TOUCHING MACHINE OPERATOR NURSE FOR [facility].
--- NOTE | 2021-11-21 19:29 | NUR ---
FRONT DESK MONITOR OPENING NOTE RECEIVED PATIENT IN BED WITH EYES CLOSED, EASY TO AROUSE. NO S/S OF APPARENT DISTRESS IN ROOM AIR. DENIES ANY PAIN. TELE MONITOR READING SR 69. SAFETY IN PLACE. WILL CONTINUE TO MONITOR.
[2021-11-21 20:00] VITALS: BP 160/66
[2021-11-21] MEDS: ATORVASTATIN 40 MG TABLET PO SCH (22:01)
[2021-11-21] MEDS: LATANOPROST EYE DROP 0.005% 2.5 ML BOTTLE RIGHTEYE SCH (22:03)
[2021-11-21] MEDS: *INSULIN REGULAR(HUMULIN R)HUM 100 UNIT/ML VIAL SQ PRN (22:11)
[2021-11-22] VITALS: BP 149/64
[2021-11-22 04:00] VITALS: BP 162/63
--- NOTE | 2021-11-22 05:43 | NUR ---
television specialist note rechecked patient's bp 162/63 patient scheduled for dialysis at 0800. just holding PRN Apresoline per clinical assessment.
[2021-11-22] MEDS: LEVOTHYROXINE SODIUM 75 MCG TABLET PO SCH (06:19)
[2021-11-22] MEDS: INSULIN REGULAR, HUMAN 100 UNIT/ML 3 ML VIAL SQ PRN ×2 (06:24→12:31)
[2021-11-22] MEDS: BLOOD SUGAR DIAGNOSTIC 1 EACH STRIP IN SCH ×3 (06:24→17:44)
--- NOTE | 2021-11-22 06:41 | NUR ---
AMORTIZATION CLERK CLOSING NOTE PATIENT IN BED WITH EYES CLOSED, EASY TO AROUSE. NO SIGNIFICANT CHANGE SINCE LAST ENDORSEMENT. NO S/S OF APPARENT DISTRESS IN ROOM AIR. NO C/O PAIN BUT C/O CONSTIPATION, SCHEDULED COLACE 0900, WILL ENDORSE. R. BKA AMPUTATION WITH ANAY WRAP AND IMMOBILIZER, DRY AND INTACT DRESSING. TELE MONITOR READING SR THROUGHOUT SHIFT. ALL NEEDS ATTENDED. ALL SCHEDULED MEDS ADMINISTERED. SAFETY KEPT IN PLACE THE WHOLE SHIFT. WILL ENDORSE TO MORNING SHIFT RN FOR CONTINUITY OF CARE.
--- NOTE | 2021-11-22 08:02 | NUR ---
RN OPENING NOTE PATIENT RECEIVED IN BED, ABLE TO RESPONDS ALL STIMULI. IN NO ACUTE DISTRESS NOTED. RESPIRATORY EVEN AND UNLABORED ON ROOM AIR. SKIN IS WARM TO TOUCH, KEEP CLEAN/DRY, INTACT IV SITE. KEPT ELEVATED HOB FOR ENSURE AIRWAY AND ASPIRATION PRECAUTION, ALSO LOWEST POSITION OF THE BED, S/R UP X 2, ALL SAFETY PRECAUTION APPLIED. CALL LIGHT WITHIN REACH, WILL CONTINUE TO MONITOR.
[2021-11-22] MEDS: SEVELAMER CARBONATE 800 MG TABLET PO SCH ×3 (08:40→17:44)
[2021-11-22] MEDS: VIT B CMPLX 3/FA/VIT C/BIOTIN 1 TAB TABLET PO SCH (08:40)
[2021-11-22] MEDS: GABAPENTIN 100 MG CAPSULE PO SCH (08:40)
[2021-11-22] MEDS: ASPIRIN EC 81 MG TABLET.DR PO SCH (08:40)
[2021-11-22] MEDS: PANTOPRAZOLE 40 MG TABLET.DR PO SCH (08:40)
[2021-11-22] MEDS: DAKINS HALF STRENGTH (0.25%) 480 ML BOTTLE TOP SCH (08:41)
[2021-11-22] MEDS: DOCUSATE SODIUM 100 MG CAPSULE PO SCH ×2 (08:44→17:00)
[2021-11-22] MEDS: BENAZEPRIL HCL 10 MG TABLET PO SCH (08:44)
--- NOTE | 2021-11-22 08:44 | NUR ---
PATIENT SCHEDULED HD TODAY, WILL HOLD BP MEDS.
--- NOTE | 2021-11-22 09:00 | NUR ---
PATIENT REFUSED BM MEDS THIS MORNING.
--- NOTE | 2021-11-22 12:37 | NUR ---
PATIENT REFUSED RENAGEL 1,600MG AT LUNCH TIME.
--- NOTE | 2021-11-22 13:46 | NUR ---
PATIENT DISCHARGE TO [facility], GIVEN REPORT SAE/RN AND INFORMED INCLUDE GROUT MACHINE TENDER TIME.
--- NOTE | 2021-11-22 18:00 | NUR ---
RN CLOSE NOTE PATIENT IN BED, IN NO ACUTE DISTRESS OBSERVED. RESPIRATION EVEN AND UNLABORED ON ROOM AIR. SKIN IS WARM TO TOUCH KEEP CLEAN//DRY, INTACT NEW IV SITE. KEPT ELEVATED HOB FOR ENSURE AIRWAY AND ASPIRATION PRECAUTION. ALSO LOWEST POSITION OF THE BED FOR SAFETY. CALL LIGHT WITHIN REACH, WILL ENDORSE TO BLOCK AND CASE MAKER.
--- NOTE | 2021-11-22 20:00 | NUR ---
LAUNCH CHECK OUT NOTES AMBULANCE TRANSPORT CAME TO POSTAL MAIL CARRIER PATIENT,VITAL SIGNS WITH IN NORMAL LIMITS,A/O X3-4,SALINE LOCK ,MIDLINE TO RIGHT ARM TAKEN OUT,PRESSURE DRESSING APPLIED,ALL BELONGINGS GIVEN TO AMBULANCE CREW.
--- NOTE | 2021-11-22 20:30 | NUR ---
RUBBER PRESS TENDER NOTES LEFT HOSPITAL VIA AMBULANCE TRANSPORT IN STABLE CONDITION.
== END 2021-11-22 20:25 | DRG 305 ==
LOC: ER 14:13 → TRANSITION 17:35 → MED 20:12 → TELE 11-19 00:25
PROVIDERS: ADMIT Nurse Practitioner Acute Care; ATTEND Internal Medicine
PROC: 5A1D70Z Performance of Urinary Filtration, Intermittent, Less than 6 Hours Per Day (ICD-10-PCS; 2021-11-04)
PROC: B410YZZ Fluoroscopy of Abdominal Aorta using Other Contrast (ICD-10-PCS; principal; 2021-11-06)
PROC: 05HB33Z Insertion of Infusion Device into Right Basilic Vein, Percutaneous Approach (ICD-10-PCS; 2021-11-06)
PROC: 0Y6H0Z2 Detachment at Right Lower Leg, Mid, Open Approach (ICD-10-PCS; 2021-11-15)
PROC: 30233N1 Transfusion of Nonautologous Red Blood Cells into Peripheral Vein, Percutaneous Approach (ICD-10-PCS; 2021-11-15)
DX: E11.69 Type 2 diabetes mellitus with other specified complication (principal); N17.0 Acute kidney failure with tubular necrosis; M86.171 Other acute osteomyelitis, right ankle and foot; M00.9 Pyogenic arthritis, unspecified; I12.0 Hypertensive chronic kidney disease with stage 5 chronic kidney disease or end stage renal disease; E87.1 Hypo-osmolality and hyponatremia; D63.8 Anemia in other chronic diseases classified elsewhere; J90 Pleural effusion, not elsewhere classified; E11.52 Type 2 diabetes mellitus with diabetic peripheral angiopathy with gangrene; E11.621 Type 2 diabetes mellitus with foot ulcer; E11.22 Type 2 diabetes mellitus with diabetic chronic kidney disease; L97.519 Non-pressure chronic ulcer of other part of right foot with unspecified severity; L03.115 Cellulitis of right lower limb; E11.42 Type 2 diabetes mellitus with diabetic polyneuropathy; F03.90 Unspecified dementia, unspecified severity, without behavioral disturbance, psychotic disturbance, mood disturbance, and anxiety; Z20.822 Contact with and (suspected) exposure to COVID-19; E11.628 Type 2 diabetes mellitus with other skin complications; E11.65 Type 2 diabetes mellitus with hyperglycemia; E78.5 Hyperlipidemia, unspecified; E03.9 Hypothyroidism, unspecified; I25.10 Atherosclerotic heart disease of native coronary artery without angina pectoris; Z99.2 Dependence on renal dialysis; K21.9 Gastro-esophageal reflux disease without esophagitis; D75.839 Thrombocytosis, unspecified; Z79.4 Long term (current) use of insulin; N18.6 End stage renal disease; J98.11 Atelectasis; Z96.661 Presence of right artificial ankle joint
CPT/HCPCS: 36246; 36410; 36415; 71045-TC; 73620-TC; 73721-TC; 75574; 75625; 75630-TC; 75710-TC; 80048-TC; 80061-TC; 80202-TC; 82962-TC; 83735-TC; 84100-TC; 84443-TC; 85025-TC; 85610-TC; 85652-TC; 85730-TC; 86140-TC; 86706; 86850-TC; 87040-TC; 87070-TC; 87081-TC; 87340; 88307-TC; 88311-TC; 90935-TC; 93307-TC; 93926-TC; 97112-TC; 97530-TC; A6253; A6403; C1769; C1887; C1894; G0378; G0500; J0330; J0360; J0690; J1170; J1644; J1650; J1815; J2250; J2270; J2310; J2405; J2543; J2704; J2765; J3010; J3370; J3490; J7030; J7050; J7060; P9016; Q9967